=== PATIENT | female | born 1985 | race Caucasian/White ===

== ENCOUNTER 2017-11-24 17:11 | Emergency (ER) | payer OTHER, SELFPAY ==
[2017-11-24] VITALS (7 sets, daily range): BP systolic 107–134; BP diastolic 78–89; PULSE 98–122; RESP 14–30; TEMP 36.6; O2SAT 95–100; BMI 31.1
--- NOTE | 2017-11-24 17:25 | EKG12_ITS ---
Test Reason : CP Blood Pressure : / mmHG Vent. Rate : 117 BPM Atrial Rate : 117 BPM P-R Int : 156 ms QRS Dur : 082 ms QT Int : 304 ms P-R-T Axes : 039 080 050 degrees QTc Int : 424 ms Sinus tachycardia Otherwise normal ECG Confirmed by ALETHEA ARAYA, MASOUD ([id number]), food editor ALTHEA WILKINSON ([id number]) on 11/30/2017 9:18:16 AM Referred By: UVALDO/JARETH Confirmed By:MASOUD CLAIRE MD
[2017-11-24] MEDS: 0.9% Normal Saline 1,000 ML 1000 ML IV (17:50)
--- NOTE | 2017-11-24 17:58 | ED.VISSUMM ---
- ER Visit Summary Date of Service: 11/24/17 Chief Complaint: Vomiting History of Present Illness: The patient is a 32 F who states that on Monday she began to have vomiting states there was bright red blood with it. She states that she has been having chronic diarrhea. She reports fevers. She notes a chest pressure. She states that she feels like at times her heart is racing. She notes decreased urination. She reports that she was admitted to [facility] a year ago with an ileus and had sludge in the common bile duct. She denies a history of pancreatitis. She has had cholecystectomy hysterectomy hernia repair. The patient notes epigastric abdominal pain. She states that just prior to arrival she had another emesis had blood in it. Stools have not been black or tarry. No bright red blood in the stools. Physical Examination: 129/83 temperature 98 heart rate of 122 respirations are 19 even and unlabored pulse ox is 100 Gen: Well-nourished well-developed Head: Normocephalic atraumatic Eyes: Perrl EOMI ENT: TMs clear no rhinorrhea moist mucous membranes Neck: Supple no lymphadenopathy no JVD nontender CVS: Regular rate rhythm no murmurs normal S1-S2 Respiratory: No distress clear to auscultation bilaterally chest nontender Abdomen: Soft nontender nondistended normal bowel sounds no masses Back: Nontender Extremity: Nontender no edema Skin: Normal color no rash Neuro: alert orientated ?3 CN II-XII intact normal strength sensation reflexes gait cerebellar Test Results: EKG shows a sinus tachycardia at a rate of 117 CBC with white count 10.2 hemoglobin 14.8 platelets 216. Chemistry showed a creatinine 1.08 lipase 179. Troponin less than 0.015. CT the abdomen pelvis performed with oral and IV contrast did not show any acute etiology for the patient's pain. Emergency Department Course and Treatment: Patient received IV fluids morphine and Zofran and later a GI cocktail. With the patient most likely has some gastritis also component of anxiety given the circumstances of the past week and a half is totally understandable. I will write for the patient have Pepcid and Zofran she is to do a clear liquid diet for the next 24 hours and slowly progress. She is to follow-up with her doctor early next week. She may return if worsening or concerns. Impression: 1. Acute abdominal pain 2. Acute gastritis This note was generated with [employer] dictation software. It may contain incorrect words, spelling, and punctuation that were not noted in review of the chart prior to signing ED Disposition - Plan for ED Patient: Disposition: Home or Assisted Living Chief Complaint: Chest Pain Instructions: ED Gastritis Prescriptions: Ondansetron [Zofran Odt] 4 mg PO Q8H PRN PRN #10 tab PRN Reason: Nausea Famotidine [Pepcid] 20 mg PO BID #28 tab Referrals: Jose Torres [Primary Care Provider] - 3-5 Days
[2017-11-24 18:03] LABS: Absolute Lymphocyte Count 3.45 X10^3/ul (0.83-4.51); Absolute Neutrophil Count 6.1 X10^3/uL (2.0-7.7); Basophil# 0.04 X10^3/uL; Basophil% 0.4 % (0-1); Hematocrit 43.6 % (37-47); Hemoglobin 14.8 g/dl (12.0-15.0); Lymphocyte # 3.45 X10^3/ul (4.0); Mean Corp Hgb Conc 33.9 g/gl (32-36); Mean Corpuscular Hgb 32.2 pg (27.0-32.0); Mean Platelet Vol. 11.7 fl (6.2-12.0); Monocyte# 0.47 X10^3/uL; Monocyte% 4.6 % (0-10); Neutrophil # 6.08 X10^3/uL (2.7-7.7); Neutrophil % 59.9 % (47-70); Platelet Count 216 K/mm3 (150-450); RBC Distribution Width CV 11.8 % (11.6-14.6); RBC Distribution Width SD 40.3 fl (35.1-43.9); Red Blood Count 4.59 M/mm3 (4.2-5.4); White Blood Count 10.2 K/mm3 (4.4-11.0)
[2017-11-24 18:04] LABS: POSITIVE COUNT NO; POSITIVE DIFFERENTIAL NO; POSITIVE MORPHOLOGY NO
[2017-11-24 18:14] LABS: Bacteria 0 SEEN /hpf (None Seen); Color, Urine Yellow (Yellow); Glucose, Dipstick Normal (Normal); Ketone-Dipstick Negative (Negative); Leukocyte Esterase-Dipstick 25 /ul (Negative); Mucous, Urine 0 SEEN /hpf (<or=2+); Nitrite-Dipstick Negative (Negative); Occult Blood-Urine Negative /ul (Negative); Protein-Dipstick Negative (Negative); Red Blood Cells-Urine 0 SEEN /hpf (0-5); Urine Bilirubin Dipstick Negative (Negative); Urine Clarity Cloudy (Clear); Urine Urobilinogen Normal (Normal)
[2017-11-24 18:15] LABS: AST(SGOT) 20 U/L (15-37); Alanine Aminotransfer ALT/SGPT 42 U/L (13-56); Albumin, Serum 4.1 g/dL (3.2-5.0); Alkaline Phosphatase 61 U/L (45-117); Anion Gap 6 (5-15); BUN 17 mg/dL (7-18); BUN/Creat Ratio 15.7 RATIO (10-20); Calcium,Total 9.9 mg/dL (8.5-10.1); Chloride 103 mmol/L (98-107); Creatinine, Serum 1.08 mg/dL (0.55-1.02); EST Glomerular Filtration Rate 63 mL/min (>60); Est Glom Filt Rate - Afr Amer 76 mL/min (>60); Estimated Creatinine Clearance 54.21 ml/min; Globulin 4.3 g/dL (2.2-4.2); Glucose 118 mg/dL (74-106); Lipase 179 U/L (73-393); Potassium 3.9 mmol/L (3.5-5.1); Protein, Total 8.4 g/dL (6.4-8.2); Sodium Level 138 mmol/L (136-145)
[2017-11-24 18:24] LABS: Amorphous Sediment 3+; Squamous Epithelial Cells - UA 0-5 SEEN /hpf (5-10); White Blood Cells 0-5 SEEN /hpf (0-5)
--- NOTE | 2017-11-24 18:29 | CT_ITS ---
STUDY: CT ABDOMEN AND PELVIS WITH CONTRAST REASON FOR EXAM: Female, 32 years old. Bloody emesis. History of prior ileus, cholecystectomy and prior surgical history of ANNA BSO. RADIATION DOSAGE (If Supplied By Facility): CTDIvol = ( 13.67 ) mGy, DLP = ( 683.37 ) mGycm TECHNIQUE: Transaxial images were obtained from the dome of the diaphragm to the symphysis pubis with oral contrast. 100 ml of Isovue 300 contrast was administered. Sagittal and coronal images were reconstructed. Individualized dose optimization techniques were used for this CT. COMPARISON: Prior abdomen and pelvic CT exam of December 29, 2015 FINDINGS: The visualized lung bases are unremarkable. The visualized portions of the heart are within normal limits. Normal liver with a Pascale's lobe. There are surgical clips in the gallbladder fossa consistent with a prior cholecystectomy. Normal spleen. Normal pancreas. Normal bilateral adrenal glands. 1 mm nonobstructing stone in the lower pole of the right kidney and a 1 mm stone in the midpole of the right kidney without hydronephrosis or ureteral stones. Normal left kidney without hydronephrosis or stones. Normal visualized stomach. Normal small intestine. Normal colon. The appendix is visualized and appears normal. Normal abdominal aorta. Normal inferior vena cava. Normal retroperitoneum. Normal urinary bladder. There is absence of the uterus consistent with a prior hysterectomy. Negative for pelvic mass or free fluid in the pelvis. Normal abdominal wall. Normal osseous structures. CT/Abdomen/Pelvis WITH Contrast IMPRESSION: No acute bowel related abnormalities. Negative for evidence of obstruction, perforation or inflammatory changes. Negative for a bowel related mass density. Status post cholecystectomy. There are 1 mm and 1 mm nonobstructing right renal stones without hydronephrosis or ureteral stones. Normal left kidney. Status post hysterectomy with no pelvic mass or free fluid of the pelvis. Electronically Signed: Verónica Lewis MD at 21:23 EDT , Service support ,
[2017-11-24] MEDS: Morphine 2 MG/ML Syringe IV (18:55)
[2017-11-24] MEDS: Ondansetron 4 MG/2 ML Vial IV ×2 (18:55→21:13)
[2017-11-24] MEDS: 0.9% Normal Saline 1,000 ML 250 ML IV (21:13)
== END 2017-11-24 21:45 | disposition home or self-care (01) ==
PROVIDERS: Emergency Provider Emergency Medicine; Family Provider Internal Medicine; PCP Internal Medicine
DX: K29.00 Acute gastritis without bleeding (principal); R10.13 Epigastric pain; F98.8 Other specified behavioral and emotional disorders with onset usually occurring in childhood and adolescence; F41.9 Anxiety disorder, unspecified; Z90.49 Acquired absence of other specified parts of digestive tract; Z90.710 Acquired absence of both cervix and uterus; Z79.899 Other long term (current) drug therapy
CPT/HCPCS: 74177; 80053; 81001; 83690; 84484; 85025; 93005; 96361; 96374; 96375; 96376; 99285; J7030; Q9967; A4216; J2405

== ENCOUNTER → 2017-12-08 15:49 | Outpatient (CLI) | payer OTHER, SELFPAY ==
--- NOTE | 2017-12-08 16:45 | RAD_ITS ---
STUDY: X-RAY - ABDOMEN/PELVIS REASON FOR EXAM: Female, 32 years old. Hematemesis and abdominal pain and bloating TECHNIQUE: Two AP supine views of the abdomen and pelvis. COMPARISON: None. FINDINGS: Normal visualized lung bases. There is an abundance of fecal material throughout the colon. There is no demonstrated free abdominal air. Cholecystectomy clips The visualized liver, spleen and kidneys are grossly normal in size and morphology. Normal soft tissue structures. Normal visualized osseous structures. RAD/Abdomen Single View IMPRESSION: Fecal retention throughout the colon Electronically Signed: Basilio Cruz DO at 16:14 EDT Tel , Service support ,
[2017-12-08 16:59] LABS: Thyroid Stim Hormone (TSH) 1.71 uIU/mL (0.358-3.74)
== END ==
PROVIDERS: Family Provider Internal Medicine; PCP Internal Medicine
DX: K92.0 Hematemesis (principal); K59.09 Other constipation; K92.1 Melena
CPT/HCPCS: 36415; 74018; 84443

== ENCOUNTER 2017-12-19 04:35 | Emergency (ER) | payer OTHER, MEDICAID, SELFPAY ==
[2017-12-19 04:37] VITALS: BP 127/70; PULSE 110; RESP 22; TEMP 36.7; O2SAT 98; BMI 27.9
--- NOTE | 2017-12-19 04:52 | ED.VISSUMM ---
- ER Visit Summary Date of Service: 12/19/17 Chief Complaint: [] Right-sided flank pain nausea and vomiting History of Present Illness: The patient is a 32 F patient with a history of multiple kidney stones in the past complaining of acute onset right-sided flank pain that woke her up from sleep. It happened 4 hours ago. She has had 6 episodes of emesis. It is a sharp stabbing pain in this region. She has a history of kidney stones. She did not have a kidney stone on her a recent CT abdomen pelvis however. She has had them remotely. She stated she is always had to have lithotripsy to break them up Physical Examination: [] Vital signs reviewed General: Well-nourished well-developed Head: Normocephalic atraumatic Eyes: Pupils equal round and reactive to light extraocular movements intact ENT: TMs clear no hemotympanum no trauma Neck: Nontender full range of motion Cardiovascular: Regular rate rhythm no murmurs normal S1-S2 Respiratory: No distress clear to auscultation bilaterally chest nontender Abdomen: Soft nontender nondistended normal bowel sounds no masses Back: Nontender no CVA tenderness Extremities: Nontender active range of motion ?4 extremities no trauma Skin: Normal color no trauma Neuro alert oriented cranial nerves II through XII intact normal strength sensation reflexes Test Results: [] Emergency Department Course and Treatment: [] Patient given IV fluids, morphine Zofran and Toradol. At this time I feel the patient has recurrent kidney stones. I do not feel she needs lab work or imaging at this time. Symptom control will be obtained the patient will be discharged with nausea and pain medicine to follow-up with urology. I do not feel she needs further imaging and she has had this multiple times in the past and will not change emergency department management. Treatment Plan: [] Disposition: [] Impression: [] Acute right-sided recurrent flank pain suspected kidney stone This note was generated with [employer] dictation software. It may contain incorrect words, spelling, and punctuation that were not noted in review of the chart prior to signing ED Disposition - Plan for ED Patient: Chief Complaint: Flank Pain Referrals: Jose Torres Jr., MD [Primary Care Provider] -
[2017-12-19] MEDS: Ketorolac 30 MG/ML Syringe IV (05:05)
[2017-12-19] MEDS: Morphine 4 MG/ML Syringe IV ×2 (05:05→05:35)
[2017-12-19] MEDS: Ondansetron 4 MG/2 ML Vial IV (05:05)
[2017-12-19] MEDS: 0.9% Normal Saline 1,000 ML 1000 ML IV (05:05)
[2017-12-19] MEDS: proMETHazine 25 MG/ML Syringe 12.5 MG IV (05:35)
--- NOTE | 2017-12-19 06:20 | DCINST.ED_ITS ---
ED Disposition - Plan for ED Patient: Disposition: Home or Assisted Living Chief Complaint: Flank Pain Instructions: ED Stone Renal W Colic Prescriptions: Oxycodone HCl/Acetaminophen [Percocet 5/325] 1 - 2 tab PO Q6H PRN PRN 3 Days # 10 tab PRN Reason: Pain proMETHazine tablet [Phenergan] 25 mg PO Q6H PRN PRN #10 tab PRN Reason: Nausea Ondansetron [Zofran Odt] 4 mg PO Q8H PRN PRN #10 tab PRN Reason: Nausea Referrals: Jose Torres Jr., MD [Primary Care Provider] - Manny Velasquez MD [STAFF PHYSICIAN] -
[2017-12-19] MEDS: HYDROmorphone 0.5 MG/0.5 ML SYRINGE IV (06:53)
[2017-12-19 07:26] VITALS: BP 108/74; PULSE 62; RESP 15; O2SAT 97
== END 2017-12-19 07:28 | disposition home or self-care (01) ==
PROVIDERS: Emergency Provider Emergency Medicine; Family Provider Internal Medicine; PCP Internal Medicine
DX: N20.0 Calculus of kidney (principal); Z87.442 Personal history of urinary calculi
CPT/HCPCS: 96361; 96374; 96375; 96376; 99285; J7030; A4216; J2405

== ENCOUNTER 2018-01-17 04:08 | Emergency (ER) | payer OTHER, MEDICAID, SELFPAY ==
[2018-01-17 04:08] VITALS: BP 124/80; PULSE 88; RESP 18; TEMP 36.8; O2SAT 97; BMI 30.7
--- NOTE | 2018-01-17 04:23 | CT_ITS ---
STUDY: CT ABDOMEN AND PELVIS WITHOUT CONTRAST REASON FOR EXAM: Female, 32 years old. Right flank pain RADIATION DOSAGE (If Supplied By Facility): CTDIvol = ( 7.69 ) mGy, DLP = ( 384.17 ) mGycm TECHNIQUE: Transaxial images were obtained from the dome of the diaphragm to the symphysis pubis without oral contrast, and without intravenous contrast. Sagittal and coronal images were reconstructed. Individualized dose optimization techniques were used for this CT. COMPARISON: None. FINDINGS: Evaluation limited by lack of IV and oral contrast material. The visualized lung bases are unremarkable. The visualized portions of the heart are within normal limits. Normal liver. There are surgical clips in the gallbladder fossa consistent with a prior cholecystectomy. Normal spleen. Normal pancreas. Normal bilateral adrenal glands. There are multiple 1 to 3 mm nonobstructing stones within the right kidney. Normal left kidney. Normal visualized stomach. Normal small intestine. There are multiple colonic diverticula consistent with diverticulosis. The appendix is visualized and appears normal. Normal unenhanced abdominal aorta. Cannot evaluate for dissection due to lack of IV contrast. Normal unenhanced inferior vena cava. Nonspecific subcentimeter short axis mesenteric and retroperitoneal lymph nodes. Normal urinary bladder. Minimal bilateral hydroureter. Normal abdominal wall. There are diffuse degenerative changes of the visualized lumbar spine. CT/Abdomen/Pelvis without Cont IMPRESSION: Nonobstructing right nephrolithiasis. There is bilateral minimal hydroureter present. No ureteral stones are seen. Correlate with urinalysis for possible ascending infectious process. No CT evidence for diverticulitis or appendicitis. Status post cholecystectomy. Other findings as discussed above. Electronically Signed: Eugenio Groves, at 5:49 EDT Tel , Service support ,
--- NOTE | 2018-01-17 04:24 | ED.VISSUMM ---
- ER Visit Summary Date of Service: 01/17/18 Chief Complaint: Right flank pain History of Present Illness: The patient is a 32 F presenting with right flank pain. She states this woke her from sleep around 3 AM. She has history of multiple kidney stones in the past. States this feels similar. She has nausea and vomiting. She tried Zofran and Flexeril at home with no relief. She has seen Dr. Mcmullen in the past but is unable to go back to his office due to an unpaid bill. Denies fever. Denies other complaints. History of hysterectomy, cholecystectomy. Physical Examination: Vitals are stable. Patient is afebrile. Alert no acute distress. HEENT exam is unremarkable. Neck is supple. Lungs are clear and equal bilaterally. Heart is regular rate and rhythm. Abdomen is soft nontender nondistended. Back: Right CVA tenderness Extremities are unremarkable. Skin is warm and dry. No focal neurologic deficit. Remainder of exam is unremarkable. Emergency Department Course and Treatment: Patient is given morphine, Zofran IV. Urinalysis unremarkable. CT flank shows nonobstructing right nephrolithiasis, bilateral minimal hydroureter. No ureteral stones are seen. Patient continues to have pain but her symptoms are improved. She is given an additional dose of morphine. She is advised to follow-up with her primary care physician. She is advised to return to the ED for any worsening complaints. Disposition: Discharge home Impression: Right flank pain This note was generated with [employer] dictation software. It may contain incorrect words, spelling, and punctuation that were not noted in review of the chart prior to signing ED Disposition - Plan for ED Patient: Chief Complaint: Flank Pain Instructions: ED Flank Pain Uncertain Cause Referrals: Jose Torres Jr., MD [Primary Care Provider] -
[2018-01-17 04:41] LABS: Mucous, Urine 0 SEEN /hpf (<or=2+); Red Blood Cells-Urine 0 SEEN /hpf (0-5)
[2018-01-17 04:42] LABS: Color, Urine Yellow (Yellow); Glucose, Dipstick Normal (Normal); Ketone-Dipstick Negative (Negative); Leukocyte Esterase-Dipstick 25 /ul (Negative); Nitrite-Dipstick Negative (Negative); Occult Blood-Urine Negative /ul (Negative); Protein-Dipstick Negative (Negative); Specific Gravity, Urine 1.025 (1.002-1.030); Urine Bilirubin Dipstick Negative (Negative); Urine Clarity Clear (Clear); Urine Urobilinogen Normal (Normal)
[2018-01-17 04:47] LABS: Bacteria RARE /hpf (None Seen); Squamous Epithelial Cells - UA 0-5 SEEN /hpf (5-10); White Blood Cells 0-5 SEEN /hpf (0-5)
[2018-01-17] MEDS: proMETHazine 25 MG/ML Syringe 6.25 MG IV (04:52)
[2018-01-17] MEDS: Morphine 4 MG/ML Syringe IV ×2 (04:52→06:50)
--- NOTE | 2018-01-17 06:37 | ED.DEP ---
ED Disposition - Plan for ED Patient: Chief Complaint: Flank Pain Instructions: ED Flank Pain Uncertain Cause Referrals: Jose Torres Jr., MD [Primary Care Provider] -
[2018-01-17 06:51] VITALS: BP 108/73; PULSE 59; RESP 14; O2SAT 98
== END 2018-01-17 06:54 | disposition home or self-care (01) ==
PROVIDERS: Emergency Provider Emergency Medicine; Family Provider Internal Medicine; PCP Internal Medicine
DX: R10.9 Unspecified abdominal pain (principal); R11.2 Nausea with vomiting, unspecified; F90.9 Attention-deficit hyperactivity disorder, unspecified type; F41.9 Anxiety disorder, unspecified; Z87.442 Personal history of urinary calculi; Z90.49 Acquired absence of other specified parts of digestive tract; Z90.710 Acquired absence of both cervix and uterus
CPT/HCPCS: 74176; 81001; 96374; 96375; 96376; 99283; J7050; A4216

== ENCOUNTER 2018-06-10 19:56 | Emergency (ER) | payer OTHER, MEDICAID, SELFPAY ==
[2018-06-10 19:57] VITALS: BP 164/94; PULSE 118; RESP 16; TEMP 36.7; O2SAT 99; BMI 33.4
[2018-06-10 21:56] VITALS: PULSE 108; RESP 18; TEMP 36.7; O2SAT 100
--- NOTE | 2018-06-10 22:18 | ED.VISSUMM ---
- ER Visit Summary Date of Service: 06/10/18 Chief Complaint: Cough History of Present Illness: The patient is a 33 F with a cough that has been getting worse over the past 12 days. The patient has had a dry cough with fever. The cough is getting worse and it is barky. It is causing her chest to hurt in her body hurts. Her throat is sore and she has a hoarse voice. She has tried [id number] remedies, and nothing is helping. Physical Examination: Afebrile and vital signs unremarkable except for heart rate of 108. She has a hoarse barky cough. HEENT exam unremarkable. Airway patent. Voice is hoarse. No stridor. No drooling. Sitting, breathing, speaking without difficulty. No lymphadenopathy. Neck is nontender. Good range of motion of her neck. No abscess is noted. Lungs are clear. Heart is regular. Skin appears unremarkable. Test Results: None indicated Emergency Department Course and Treatment: Patient likely has a viral syndrome, however this is been going on for 12 days. She exhibits a very hoarse and barky cough. She is otherwise handling her secretions and her exam is otherwise fairly unremarkable. She was treated with Decadron and a course of doxycycline. She has tolerated this before. Treatment Plan: As above Disposition: Discharge Impression: 1. Upper respiratory infection This note was generated with [employer] dictation software. It may contain incorrect words, spelling, and punctuation that were not noted in review of the chart prior to signing ED Disposition - Plan for ED Patient: Chief Complaint: Cold Sx Referrals: Jose Torres Jr., MD [Primary Care Provider] -
--- NOTE | 2018-06-10 22:23 | ED.DCSUM_ITS ---
- ER Visit Summary Date of Service: 06/10/18 Chief Complaint: Cough History of Present Illness: The patient is a 33 F with a cough that has been getting worse over the past 12 days. The patient has had a dry cough with fever. The cough is getting worse and it is barky. It is causing her chest to hurt in her body hurts. Her throat is sore and she has a hoarse voice. She has tried [id number]-wwb-[id number] remedies, and nothing is helping. Physical Examination: Afebrile and vital signs unremarkable except for heart rate of 108. She has a hoarse barky cough. HEENT exam unremarkable. Airway patent. Voice is hoarse. No stridor. No drooling. Sitting, breathing, speaking without difficulty. No lymphadenopathy. Neck is nontender. Good range of motion of her neck. No abscess is noted. Lungs are clear. Heart is regular. Skin appears unremarkable. Test Results: None indicated Emergency Department Course and Treatment: Patient likely has a viral syndrome, however this is been going on for 12 days. She exhibits a very hoarse and barky cough. She is otherwise handling her secretions and her exam is otherwise fairly unremarkable. She was treated with Decadron and a course of doxycycline. She has tolerated this before. Treatment Plan: As above Disposition: Discharge Impression: 1. Upper respiratory infection This note was generated with [employer] dictation software. It may contain incorrect words, spelling, and punctuation that were not noted in review of the chart prior to signing ED Disposition - Plan for ED Patient: Chief Complaint: Cold Sx Referrals: Jose Torres Jr., MD [Primary Care Provider] -
--- NOTE | 2018-06-10 22:23 | ED.DEP ---
ED Disposition - Plan for ED Patient: Chief Complaint: Cold Sx Instructions: ED Upper Resp Infec Abx Tx Prescriptions: Doxycycline 100 mg PO DAILY 10 Days #20 cap Referrals: Jose Torres Jr., MD [Primary Care Provider] -
[2018-06-10] MEDS: Doxycycline 100 MG CAPSULE PO (22:36)
[2018-06-10 22:40] VITALS: BP 133/76; PULSE 99; RESP 18; O2SAT 97
== END 2018-06-10 22:41 | disposition home or self-care (01) ==
PROVIDERS: Emergency Provider Emergency Medicine; Family Provider Internal Medicine; PCP Internal Medicine
DX: J06.9 Acute upper respiratory infection, unspecified (principal)
CPT/HCPCS: 99283

== ENCOUNTER 2018-06-21 18:30 | Emergency (ER) | payer OTHER, MEDICAID, SELFPAY ==
[2018-06-21 18:31] VITALS: BP 114/70; PULSE 106; RESP 16; TEMP 36.7; O2SAT 100
--- NOTE | 2018-06-21 19:05 | RAD_ITS ---
STUDY: X-RAY - RIGHT TIBIA AND FIBULA REASON FOR EXAM: Female, 33 years old. Pain in the distal lower leg after falling. TECHNIQUE: 2 view(s) of the tibia and fibula were obtained. COMPARISON: None. FINDINGS: Normal visualized tibia. Normal visualized fibula. There is no demonstrated acute fracture. The soft tissue structures are unremarkable. RAD/Tibia & Fibula 2 Views IMPRESSION: Normal x-ray examination of the tibia and fibula. Electronically Signed: Verónica Lewis MD at 19:46 EST , Service support ,
[2018-06-21] MEDS: HYDROcodone Bitartrate/Apap 5/325 Tablet PO (19:11)
--- NOTE | 2018-06-21 19:15 | RAD_ITS ---
STUDY: X-RAY - RIGHT WRIST REASON FOR EXAM: Female, 33 years old. Injury. Fall. TECHNIQUE: 3 view(s) of the wrist were obtained. COMPARISON: None. FINDINGS: Normal visualized distal radius and ulna. Normal radiocarpal articulation. Normal distal radioulnar articulation. Normal carpal bones. Normal carpal articulations. Normal carpometacarpal articulation of the thumb. Normal second through fifth carpometacarpal articulations. Normal visualized metacarpal bones. The soft tissue structures are unremarkable. RAD/Wrist min 3 Views IMPRESSION: No acute osseous injury. Electronically Signed: Kaila Tobias MD at 19:57 EST Tel , Service support ,
--- NOTE | 2018-06-21 20:29 | ED.DCSUM_ITS ---
- ER Visit Summary Date of Service: 06/21/18 Chief Complaint: Fall History of Present Illness: The patient is a 33 F who tripped on a rug [employer] injuring her right wrist, right ankle, and right side of her back. Patient does have a history of chronic right back pain. She did strike the back of her head but did not lose consciousness. She does not have headache or vision change. She reports significant pain to the right wrist, along with pain and tingling to the right calf. Physical Examination: Vital signs unremarkable. Patient sitting upright in bed. She is in no acute distress. Head neck examination reveals no external sign of trauma. No C-spine tenderness. Heart is regular rate and rhythm. Lung sounds are clear. Abdomen is soft nontender. Back examination was mild tenderness in the right low lumbar paraspinal muscles. No abrasions or ecchymosis noted. Upper extremity examination reveals moderate tenderness around the right wrist without deformity. She is moving all fingers. She has normal cap refill and sensation. There is no tenderness at the proximal forearm, elbow, or humerus. Lower extremity examination reveals mild tenderness along the right tib-fib without ecchymosis, edema, or abrasion. There is no focal edema at the ankle. She has strong distal pulses and normal cap refill. Test Results: Right tib-fib x-rays are normal. Right wrist x-rays reveal no osseous injury. Emergency Department Course and Treatment: Patient does have reported allergy to NSAIDs. She is given [place] here. Test results are discussed with her. She will be given an Garry wrap on her right wrist in a very short course of [place] for pain. Treatment Plan: [] Disposition: Discharge Impression: 1. Mechanical fall 2. Right wrist sprain This note was generated with [employer] dictation software. It may contain incorrect words, spelling, and punctuation that were not noted in review of the chart prior to signing ED Disposition - Plan for ED Patient: Chief Complaint: Fall Referrals: Jose Torres Jr., MD [Primary Care Provider] -
--- NOTE | 2018-06-21 20:32 | DCINST.ED_ITS ---
ED Disposition - Plan for ED Patient: Disposition: Home or Assisted Living Chief Complaint: Fall Instructions: ED Mechanical Fall, ED Sprain Wrist Prescriptions: Hydrocodone Bitart/Apap 5-325 [[place] 5MG-325MG] 1 tablet PO Q6H PRN PRN 3 Days #10 tablet PRN Reason: Pain Referrals: Jose Torres Jr., MD [Primary Care Provider] - 1 Week if not improving
[2018-06-21 20:42] VITALS: BP 106/78; PULSE 90; RESP 16; O2SAT 96
== END 2018-06-21 20:43 | disposition home or self-care (01) ==
PROVIDERS: Emergency Provider Emergency Medicine; Family Provider Internal Medicine; PCP Internal Medicine
DX: S63.501A Unspecified sprain of right wrist, initial encounter (principal); W18.09XA Striking against other object with subsequent fall, initial encounter; Y93.01 Activity, walking, marching and hiking; Y92.89 Other specified places as the place of occurrence of the external cause; Y99.8 Other external cause status; F90.9 Attention-deficit hyperactivity disorder, unspecified type; F41.9 Anxiety disorder, unspecified
CPT/HCPCS: 73110; 73590; 99283

== ENCOUNTER 2019-01-23 19:42 | Emergency (ER) | payer OTHER, SELFPAY ==
[2019-01-23 19:43] VITALS: BP 139/72; PULSE 133; RESP 20; TEMP 36.4; O2SAT 100; BMI 33.1
[2019-01-23 20:02] LABS: Absolute Lymphocyte Count 0.69 X10^3/uL (0.83-4.51); Absolute Neutrophil Count 11.5 X10^3/uL (2.0-7.7); Basophil# 0.03 X10^3/uL; Basophil% 0.2 % (0-1); Eosinophil# 0.02 X10^3/uL; Eosinophils% 0.2 % (0-5); Hemoglobin 15.9 g/dL (12.0-15.0); Lymphocyte # 0.69 X10^3/ul (4.0); Lymphocyte % 5.4 % (19-41); Mean Corp Hgb Conc 33.8 g/dL (32-36); Mean Corpuscular Hgb 31.6 pg (27.0-32.0); Mean Corpuscular Volume 93.4 fL (81-99); Mean Platelet Vol. 10.2 fl (6.2-12.0); Monocyte# 0.57 X10^3/uL; Monocyte% 4.4 % (0-10); NRBC Flagged by Analyzer 0 % (0-5); Neutrophil # 11.45 X10^3/uL (2.7-7.7); Neutrophil % 89.4 % (47-70); Platelet Count 249 K/mm3 (150-450); RBC Distribution Width CV 12.2 % (11.6-14.6); RBC Distribution Width SD 42.2 fl (35.1-43.9); Red Blood Count 5.03 M/mm3 (4.2-5.4); White Blood Count 12.8 K/mm3 (4.4-11.0)
[2019-01-23 20:12] LABS: Anion Gap 4 (5-15); BUN 16 mg/dL (7-18); BUN/Creat Ratio 15.7 RATIO (10-20); Calcium,Total 9.4 mg/dL (8.5-10.1); Chloride 106 mmol/L (98-107); Creatinine, Serum 1.02 mg/dL (0.55-1.02); EST Glomerular Filtration Rate 66 mL/min (>60); Est Glom Filt Rate - Afr Amer 80 mL/min (>60); Estimated Creatinine Clearance 56.87 ml/min; Glucose 155 mg/dL (74-106); Potassium 4.1 mmol/L (3.5-5.1); Sodium Level 137 mmol/L (136-145)
[2019-01-23 21:15] LABS: Red Blood Cells-Urine 0 SEEN /hpf (0-5)
[2019-01-23 21:18] LABS: Color, Urine Yellow (Yellow); Glucose, Dipstick Normal (Normal); Ketone-Dipstick Negative (Negative); Leukocyte Esterase-Dipstick Negative /ul (Negative); Nitrite-Dipstick Negative (Negative); Occult Blood-Urine Negative /ul (Negative); Protein-Dipstick Negative (Negative); Specific Gravity, Urine 1.015 (1.002-1.030); Urine Bilirubin Dipstick Negative (Negative); Urine Clarity Clear (Clear); Urine Urobilinogen Normal (Normal)
[2019-01-23 21:25] LABS: Bacteria RARE /hpf (None Seen); Mucous, Urine RARE /hpf (<or=2+); Squamous Epithelial Cells - UA 5-10 SEEN /hpf (5-10); White Blood Cells 0-5 SEEN /hpf (0-5)
--- NOTE | 2019-01-23 21:46 | CT_ITS ---
STUDY: CT ABDOMEN AND PELVIS WITH CONTRAST REASON FOR EXAM: Female, 33 years old. Right lower quadrant pain. Renal stones. RADIATION DOSAGE (If Supplied By Facility): CTDIvol = ( 13.47 ) mGy, DLP = ( 874.06 ) mGycm TECHNIQUE: Transaxial images were obtained from the dome of the diaphragm to the symphysis pubis with oral contrast. 100ML IV/Oral Isovue 300 was administered. Sagittal and coronal images were reconstructed. Individualized dose optimization techniques were used for this CT. COMPARISON: 01/17/2018 FINDINGS: The visualized lung bases are unremarkable. The visualized portions of the heart are within normal limits. There is decreased attenuation of the liver consistent with steatosis. There is hepatomegaly. There are surgical clips in the gallbladder fossa consistent with a prior cholecystectomy. Normal spleen. Normal pancreas. Normal bilateral adrenal glands. Right kidney has stable small nonobstructing stones in the mid and lower regions approximately 3 mm in greatest dimension.. Normal left kidney. No masses. No hydronephrosis on either side. Symmetric contrast enhancement. Normal visualized stomach. Normal small intestine. Normal colon. The appendix is visualized and appears normal. Normal abdominal aorta. Normal inferior vena cava. Normal retroperitoneum. Normal urinary bladder. There is absence of the uterus consistent with a prior hysterectomy. Normal abdominal wall. Normal osseous structures. CT/Abdomen/Pelvis WITH Contrast IMPRESSION: No acute abnormality. Stable nonobstructing right renal stones. Fatty liver with hepatomegaly. Electronically Signed: Wilberto Gray MD at 23:46 EDT , Service support ,
[2019-01-23] MEDS: Morphine 4 MG/ML Syringe IV ×2 (21:54→23:46)
[2019-01-23] MEDS: Ondansetron 4 MG/2 ML Vial IV (21:54)
--- NOTE | 2019-01-23 23:13 | ED.DCSUM_ITS ---
- ER Visit Summary Date of Service: 01/23/19 Chief Complaint: Abdominal pain History of Present Illness: The patient is a 33 F presenting with abdominal pain. Patient states this started today. She has had nausea and vomiting. She denies diarrhea. She complains of lower abdominal pain. She denies sick contacts. Denies recent travel, antibiotics, or bad food exposure. She states she tried Zofran at home with no relief. History of previous cholecystectomy and hysterectomy. Physical Examination: Vitals are stable. Patient is afebrile. Alert no acute distress. HEENT exam is unremarkable. Neck is supple. Lungs are clear and equal bilaterally. Heart is regular and tachycardic Abdomen is soft right lower quadrant tenderness with no rebound or guarding Extremities are unremarkable. Skin is warm and dry. No focal neurologic deficit. Remainder of exam is unremarkable. Emergency Department Course and Treatment: Patient was given IV fluids, morphine, Zofran. CBC shows a white count 12.8, chemistries show glucose 155. Urinalysis unremarkable. CT abdomen pelvis shows no acute abnormality. Stable nonobstructing right renal stones. Fatty liver with hepatomegaly. On reevaluation, patient is feeling improved. She is able to tolerate p.o. She is advised to follow up with her primary care physician. She is given a prescription for Phenergan. Advised to return to the ED for worsening complaints. Disposition: Discharge home Impression: Abdominal pain This note was generated with [employer] dictation software. It may contain incorrect words, spelling, and punctuation that were not noted in review of the chart prior to signing ED Disposition - Plan for ED Patient: Referrals: Gwen Verdin MD [Primary Care Provider] -
[2019-01-23] MEDS: 0.9% Normal Saline 1,000 ML 999 ML IV (23:38)
[2019-01-23] MEDS: proMETHazine 25 MG/ML Syringe 6.25 MG IV (23:38)
[2019-01-23 23:47] VITALS: BP 116/74; PULSE 114; RESP 16; TEMP 37.2; O2SAT 100
--- NOTE | 2019-01-24 00:01 | ED.DEP ---
ED Disposition - Plan for ED Patient: Instructions: VOMITING (7y-Adult) Prescriptions: proMETHazine tablet [Phenergan] 25 mg PO Q6H PRN PRN #10 tablet PRN Reason: Nausea Referrals: Gwen Verdin MD [Primary Care Provider] -
[2019-01-24 00:26] VITALS: BP 120/82; PULSE 118; RESP 16; O2SAT 100
== END 2019-01-24 00:27 | disposition home or self-care (01) ==
LOC: ED 22:23
PROVIDERS: Emergency Provider Emergency Medicine; Family Provider Internal Medicine; PCP Internal Medicine
DX: R10.31 Right lower quadrant pain (principal); R11.2 Nausea with vomiting, unspecified; N20.0 Calculus of kidney; K76.0 Fatty (change of) liver, not elsewhere classified; Z90.49 Acquired absence of other specified parts of digestive tract; Z90.710 Acquired absence of both cervix and uterus; F90.9 Attention-deficit hyperactivity disorder, unspecified type
CPT/HCPCS: 74177; 80048; 81001; 85025; 96361; 96374; 96375; 96376; 99283; J7030; Q9967; A4216; J2405

== ENCOUNTER 2019-06-11 19:34 | Emergency (ER) | payer OTHER, SELFPAY ==
[2019-06-11 19:36] VITALS: BP 126/72; PULSE 90; RESP 18; TEMP 36.8; O2SAT 97; BMI 28.9
--- NOTE | 2019-06-11 20:00 | RAD_ITS ---
STUDY: X-RAY - LEFT KNEE REASON FOR EXAM: Female, 34 years old. Fall onto ice. Pain. Limited movement. TECHNIQUE: 3 view(s) of the knee. COMPARISON: None. FINDINGS: There is evidence of ACL repair. The distal femur is otherwise unremarkable. Otherwise normal visualized proximal tibia and fibula. Normal proximal tibiofibular articulation. There is no acute fracture or dislocation. Normal medial femorotibial compartment. Normal lateral femorotibial compartment. Normal patellofemoral articulation. There is no demonstrated joint effusion. The soft tissue structures are unremarkable. RAD/Knee 3 Views IMPRESSION: 1. No acute fracture or dislocation. 2. Evidence of remote ACL repair. Electronically Signed: Jhony Ahumada DO at 20:50 EST Tel [phone], Service support ,
--- NOTE | 2019-06-11 20:07 | ED.VIS.LOWEX ---
History of Present Illness Chief Complaint: Lower Extremity Injury Narrative: Patient presenting for evaluation secondary to a left knee injury. Patient has a past history of a quadriceps tendon rupture with surgery being performed around 5 years ago or so. Patient was walking into a business today and slipped on some ice. She reports that when she tried to catch herself from falling she felt a significant pop in her left knee. Pain that she is experiencing now is similar to the pain that she had when she suffered the quadriceps tendon rupture. She is able to bear weight but with some difficulty. Pain is moderate worse with movement and palpation. No numbness or weakness. Review of systems otherwise negative. Past Medical History - Allergies and Home Meds Allergies/Adverse Reactions: Allergies Penicillins Allergy (Verified 06/11/19 19:38) Hives azithromycin [From Zithromax] Adverse Reaction (Verified 06/11/19 19:38) Vomiting latex Adverse Reaction (Verified 06/11/19 19:38) Rash minocycline [Minocycline] Adverse Reaction (Verified 06/11/19 19:38) Other NSAIDS (Non-Steroidal Anti-Inflamma Adverse Reaction (Verified 06/11/19 19:38) Other tramadol Adverse Reaction (Verified 06/11/19 19:38) Shortness of breath Primary Care Physician: Gwen Verdin MD [Primary Care Provider] - Past Medical History: - - Past quadriceps tendon rupture Smoking Status: Never smoker Review of Systems General: Denies: Fever Gastrointestinal: Denies: Nausea, Vomiting Musculoskeletal: Reports: Extremity Pain Skin: Denies: Abrasions Neurological: Denies: Headache, Weakness, Parasthesia Physical Exam Vital Signs/Narrative: Vital Signs Temp Pulse Resp BP Pulse Ox 06/11/19 19:36 98.2 F 90 18 126/72 H 97 - Extremity Exam Left Knee: - - Examination the patient's left knee shows some overlying ecchymosis. There does feel as if there is a palpable defect superior to the patient's patella. She has difficulty with extending the knee. Limited range of motion secondary to pain. Patient was unable to tolerate ligamentous testing of the knee. General: Well nourished, Well developed Head: Normocephalic, Atraumatic ENT: No Trauma Neck: Nontender, Full ROM Cardiovascular: Regular rate, Regular rhythm Respiratory: No distress Abdomen: Soft Back: Nontender Skin: Normal color, No rash Neurological: Alert, Oriented x3 Psychological: Normal affect Diagnostic/Tx/Re-eval - Medical Decision Making Patient presented secondary to a knee injury. Physical exam is concerning for the possibility of a disruption of the patient's extensor mechanism. X-ray was obtained which showed no acute pathology. I did a bedside ultrasound and it does show some fluid around the patient's quadriceps tendon, but was indeterminate as to whether there was a complete rupture. Given the fact that the patient is having difficulty with extending her knee I will treat this as if it is a likely quadriceps tendon rupture. Patient will be given a referral to orthopedics. She will be placed in a knee immobilizer and crutches. She will be sent home with a course of Percocet for pain control. ED Disposition - Plan for ED Patient: Disposition: Home or Assisted Living Diagnosis: Quadriceps tendon rupture Instructions: Knee Immobilizer Prescriptions: Oxycodone HCl/Acetaminophen [Percocet 5/325] 1 tab PO Q6H PRN PRN 5 Days #20 tab PRN Reason: Pain Prescription Printed Referrals: Avel Cornejo DO [STAFF PHYSICIAN] - As soon as possible
[2019-06-11] MEDS: oxyCODONE 5 MG Tablet 10 MG PO (20:19)
[2019-06-11 21:34] VITALS: BP 122/70; PULSE 80; RESP 16; O2SAT 96
== END 2019-06-11 21:37 | disposition home or self-care (01) ==
PROVIDERS: Emergency Provider Emergency Medicine; Family Provider Internal Medicine; PCP Internal Medicine
DX: S76.112A Strain of left quadriceps muscle, fascia and tendon, initial encounter (principal); W00.2XXA Other fall from one level to another due to ice and snow, initial encounter; Y93.01 Activity, walking, marching and hiking; Y92.89 Other specified places as the place of occurrence of the external cause
CPT/HCPCS: 73562; 99284

== ENCOUNTER 2020-05-04 23:11 | Emergency (ER) | payer OTHER, MEDICAID, SELFPAY ==
[2020-05-04 23:12] VITALS: BP 141/81; PULSE 121; RESP 18; TEMP 36.9; O2SAT 100; BMI 30.8
--- NOTE | 2020-05-04 23:23 | ED.VIS.GEN ---
History of Present Illness Chief Complaint: Flank Pain Informant: Patient Narrative: Presents with acute left-sided flank pain that started an hour ago at home at rest. Sharp stabbing pain in the left flank. History of similar pain per patient. She has history of recurrent kidney stones. She stated she does not have a urologist locally. She has not had a kidney stone for over a year per patient. She stated they usually have to undergo lithotripsy to remove them. Denies any blood in her urine or urinary symptoms. She felt fine beforehand. When asked if she has a cough she denied this. Denies any coronavirus symptoms. Denies any anterior abdominal pain. Is left-sided lower back flank. Is not movement related. Current severity is moderate. She took Tylenol at home. Past Medical History - Allergies and Home Meds Allergies/Adverse Reactions: Allergies Penicillins Allergy (Verified 05/04/20 23:12) Hives azithromycin [From Zithromax] Adverse Reaction (Verified 05/04/20 23:12) Vomiting latex Adverse Reaction (Verified 05/04/20 23:12) Rash minocycline [Minocycline] Adverse Reaction (Verified 05/04/20 23:12) Other NSAIDS (Non-Steroidal Anti-Inflamma Adverse Reaction (Verified 05/04/20 23:12) Other tramadol Adverse Reaction (Verified 05/04/20 23:12) Shortness of breath Primary Care Physician: Gwen Verdin MD [Primary Care Provider] - Prior records reviewed: Yes Past Medical History: - Surgical History: - - Reviewed, lithotripsy Smoking Status: Never smoker Alcohol: None Drugs: None Review of Systems General: Denies: Chills, Fever, Sweats Eyes: Denies: Visual changes - bilaterally, Diplopia ENT: Denies: Rhinorrhea, Sore throat Cardiovascular: Denies: Chest pain, Palpitations Respiratory: Denies: Dyspnea, Cough, Dyspnea on exertion Gastrointestinal: Reports: Nausea. Denies: Abdominal pain, Vomiting, Diarrhea, Melena, Hematochezia Genitourinary: Denies: Dysuria, Hematuria, Frequency Musculoskeletal: Reports: Back pain. Denies: Extremity Pain Skin: Denies: Rash, Wounds Neurological: Denies: Headache, Weakness, Numbness Physical Exam Vital Signs/Narrative: Vital Signs Temp Pulse Resp BP Pulse Ox 05/04/20 23:12 98.5 F 121 H 18 141/81 H 100 General: Well nourished, Well developed, No Acute Distress Head: Normocephalic, Atraumatic Eyes: Perrl, EOMI ENT: Moist mucous membranes, No rhinorrhea Neck: Supple, Nontender Cardiovascular: Regular rate, Regular rhythm, No murmurs Respiratory: No distress, CTA bilaterally, Chest nontender Abdomen: Soft, Nontender, Nondistended, Normal bowel sounds Back: Nontender, Normal Inspection Extremities: Nontender, No edema Skin: Normal color, No rash Neurological: Alert, Oriented x3, Cranial nerves II-XII grossly intact, Normal Strength, Normal Sensation Psychological: Normal affect, Normal Mood Diagnostic/Tx/Re-eval - Medical Decision Making Given IV fluids morphine and Zofran. Allergic to NSAIDs therefore Toradol withheld. Lab work obtained. Lab work shows nothing acute including CBC and BMP. Urinalysis shows nothing acute. No red blood cells seen. Patient given second dose of treatment stated she cannot take Toradol therefore was given this later. She had good relief of symptoms. Will be given a short course Zofran for home. She has Percocet for chronic pain. I suspect she has a recurrent kidney stone. Have a low suspicion for AAA. She did have a mild amount of blood and some scant dry heaves fluid. I do not suspect that she has ruptured AAA or peptic ulcer disease. I suspect she has very mild Janice-Ryan blood from retching. She did get this under control with Zofran. I do not feel she needs imaging. I discussed this with the patient. She has had CAT scans in the past with known kidney stones. I will hold off given the radiation exposure. Patient is in agreement to this. ED Disposition - Plan for ED Patient: Disposition: Home or Assisted Living Diagnosis: Left flank pain Instructions: ED Renal Stone w Colic Prescriptions: Oxycodone HCl/Acetaminophen [Percocet 5/325] 1 - 2 tablet PO Q6H PRN PRN 3 Days #12 tablet PRN Reason: Pain Transmission Status: Pending to [id number] Ondansetron [Zofran Odt] 8 mg PO Q8H PRN PRN #20 tab PRN Reason: Nausea Transmission Status: Pending to [id number] Referrals: Matias Mcmullen MD [STAFF PHYSICIAN] -
[2020-05-04 23:39] LABS: Absolute Lymphocyte Count 4.77 X10^3/uL (0.83-4.51); Absolute Neutrophil Count 3.3 X10^3/uL (2.0-7.7); Basophil# 0.05 X10^3/uL; Basophil% 0.6 % (0-1); Eosinophil# 0.19 X10^3/uL; Eosinophils% 2.2 % (0-5); Hematocrit 40.2 % (37-47); Hemoglobin 14.1 g/dL (12.0-15.0); Lymphocyte # 4.77 X10^3/ul (4.0); Mean Corp Hgb Conc 35.1 g/dL (32-36); Mean Corpuscular Hgb 32.9 pg (27.0-32.0); Mean Corpuscular Volume 93.9 fL (81-99); Mean Platelet Vol. 11.1 fl (6.2-12.0); Monocyte# 0.46 X10^3/uL; Monocyte% 5.2 % (0-10); NRBC Flagged by Analyzer 0 % (0-5); Neutrophil # 3.34 X10^3/uL (2.7-7.7); Neutrophil % 37.8 % (47-70); Platelet Count 229 K/mm3 (150-450); RBC Distribution Width CV 12.4 % (11.6-14.6); Red Blood Count 4.28 M/mm3 (4.2-5.4); White Blood Count 8.8 K/mm3 (4.4-11.0)
[2020-05-04] MEDS: 0.9% Normal Saline 1,000 ML 250 ML IV (23:42)
[2020-05-04] MEDS: Ondansetron 4 MG/2 ML Vial IV (23:42)
[2020-05-04] MEDS: Morphine 4 MG/ML Syringe IV (23:42)
[2020-05-04 23:44] LABS: Internal QC Validated? YES +Cl - CLEAR BKGD; Pregnancy, Serum, hCG Quali. NEGATIVE Negative
[2020-05-04 23:49] LABS: Anion Gap 4 (5-15); BUN 11 mg/dL (7-18); BUN/Creat Ratio 10.9 RATIO (10-20); Calcium,Total 9.2 mg/dL (8.5-10.1); Chloride 108 mmol/L (98-107); Creatinine, Serum 1.01 mg/dL (0.55-1.02); EST Glomerular Filtration Rate 67 mL/min (>60); Est Glom Filt Rate - Afr Amer 81 mL/min (>60); Estimated Creatinine Clearance 56.37 ml/min; Glucose 167 mg/dL (74-106); Potassium 3.5 mmol/L (3.5-5.1); Sodium Level 141 mmol/L (136-145)
[2020-05-05 00:15] LABS: Bacteria 0 SEEN /hpf (None Seen); Mucous, Urine 0 SEEN /hpf (<or=2+)
[2020-05-05] MEDS: Ondansetron 4 MG/2 ML Vial IV (00:20)
[2020-05-05] MEDS: Ketorolac 15 MG/ML Vial IV (00:20)
[2020-05-05] MEDS: Morphine 4 MG/ML Syringe IV (00:21)
[2020-05-05 00:26] LABS: Color, Urine Yellow (Yellow); Glucose, Dipstick Normal (Normal); Ketone-Dipstick 5 mg/dl (Negative); Leukocyte Esterase-Dipstick 25 /ul (Negative); Nitrite-Dipstick Negative (Negative); Occult Blood-Urine Negative /ul (Negative); Protein-Dipstick Negative (Negative); Specific Gravity, Urine 1.025 (1.002-1.030); Urine Bilirubin Dipstick Negative (Negative); Urine Clarity Sl. Cloudy (Clear); Urine Urobilinogen Normal (Normal)
[2020-05-05 00:39] LABS: Red Blood Cells-Urine 0-5 SEEN /hpf (0-5); Squamous Epithelial Cells - UA 5-10 SEEN /hpf (5-10); White Blood Cells 0-5 SEEN /hpf (0-5)
[2020-05-05 01:13] VITALS: BP 141/70; PULSE 87; RESP 18; O2SAT 97
== END 2020-05-05 01:15 | disposition home or self-care (01) ==
PROVIDERS: Emergency Provider Emergency Medicine; PCP Internal Medicine
DX: R10.9 Unspecified abdominal pain (principal); Z87.442 Personal history of urinary calculi
CPT/HCPCS: 80048; 81001; 84703; 85025; 96361; 96374; 96375; 96376; 99282; J7030; A4216; J2405

== ENCOUNTER 2020-11-22 23:03 | Emergency (ER) | payer MEDICAID, SELFPAY ==
[2020-11-22 23:06] VITALS: BP 127/86; PULSE 107; TEMP 36.2; O2SAT 98; BMI 35.7
--- NOTE | 2020-11-22 23:19 | RAD_ITS ---
STUDY: X-RAY CHEST REASON FOR EXAM: Female, 35 years old. chest pain TECHNIQUE: AP portable chest. COMPARISON: August 25, 2013. FINDINGS: No focal infiltrates or effusions. No pneumothorax. Normal size heart. Normal mediastinum and winnie. Normal visualized pulmonary arteries. Normal visualized aortic arch and descending thoracic aorta. Normal visualized thoracic spine. Normal visualized ribs, clavicles, and shoulders. There is no demonstrated abnormality of the visualized soft tissue structures of the upper abdomen. RAD/Chest 1 View (Portable) IMPRESSION: Normal x-ray examination of the chest. Electronically Signed: Marko Alvarez MD at 1:03 EDT , Service support ,
--- NOTE | 2020-11-22 23:19 | EKG12_ITS ---
Test Reason : CP Blood Pressure : / mmHG Vent. Rate : 096 BPM Atrial Rate : 096 BPM P-R Int : 162 ms QRS Dur : 084 ms QT Int : 336 ms P-R-T Axes : 041 058 050 degrees QTc Int : 424 ms Normal sinus rhythm Normal ECG Confirmed by ALETHEA ARAYA, MASOUD ([id number]), film editor supervisor JAMIA ULLOA ([id number]) on 11/26/2020 9:49:36 AM Referred By: DR TAYLOR Confirmed By:MASOUD CLAIRE MD
--- NOTE | 2020-11-22 23:21 | ED.VIS.CHEST ---
HPI History of Present Illness Chief Complaint: Chest Pain Informant: patient Onset/Context/Timing Onset: Hours (12 hours) Activity at onset: rest Timing: Intermittent Quality: Positive for Pressure and Stabbing Current Severity: Moderate Maximum Severity: Moderate Associated Symptoms: Positive for Nausea, Vomiting (Vomited x1), Diaphoresis and Dyspnea Narrative Prior Similar Symptoms: No CVD Risk Factors: Positive for Diabetes PE Risk Factors: Positive for Prior DVT or PE; Negative for Recent Travel/Surgery, Recent Immobilization and OCP + Smoking + >/=35 PFSH PFSH Medical History Anxiety Depression Diabetes DVT (deep venous thrombosis) Knee arthropathy Home Medications alprazolam [Xanax] 1 mg PO TID PRN PRN 11/24/17 [History Last Taken Unknown] furosemide 1 tab PO DAILY 06/11/19 [History Last Taken Unknown] hydrochlorothiazide 1 tab PO DAILY 06/11/19 [History Last Taken Unknown] amitriptyline 10 mg PO DAILY 11/22/20 [History Last Taken Unknown] atorvastatin 20 mg PO DAILY 11/22/20 [History Last Taken Unknown] metformin 500 mg PO BID 11/22/20 [History Last Taken Unknown] nitrofurantoin monohyd/m-cryst 100 mg PO BID 11/22/20 [History Last Taken Unknown] hydrocodone-acetaminophen 1 tab PO Q6H PRN 3 Days #10 tab 11/23/20 [Rx Last Taken Unknown] prednisone 60 mg PO DAILY #12 tab 11/23/20 [Rx Last Taken Unknown] Allergy/AdvReac Type Severity Reaction Status Date / Time Penicillins Allergy Hives Verified 05/04/20 23:12 azithromycin [From Zithromax] AdvReac Vomiting Verified 05/04/20 23:12 latex AdvReac Rash Verified 05/04/20 23:12 minocycline [Minocycline] AdvReac Other Verified 11/22/20 23:15 NSAIDS (Non-Steroidal AdvReac Bleeding Verified 11/22/20 23:15 Anti-Inflamma tramadol AdvReac Shortness Verified 05/04/20 23:12 of breath Surgical History (Updated 11/22/20 @ 23:11 by Evelia Ulrich) History of cholecystectomy Social History Smoking Status: Never smoker ROS ROS ED Constitutional Constitutional ED: Denies chills or fever(s) Eyes Eyes: Denies change in vision ENT ENT ED: Denies sore throat Cardiovascular Cardiovascular: Reports chest pain and palpitations Respiratory/Chest Respiratory/Chest: Reports dyspnea; Denies cough Gastrointestinal Gastrointestinal: Reports nausea and vomiting; Denies abdominal pain or diarrhea Genitourinary Genitourinary ED: Denies dysuria Musculoskeletal Musculoskeletal: Denies back pain Integumentary Denies rash Neurologic Neurologic: Denies headache(s) or weakness Psychiatric Psychiatric: Denies anxiety or depression Endocrine Endocrinology: Denies polydipsia or polyuria Allergic/Immunologic Allergic/Immunologic ED: Denies urticaria EXAM Physical Exam Const Vital Signs: 11/22/20 23:06 11/22/20 23:09 11/22/20 23:37 Temperature 97.2 F L Temperature Source Temporal Pulse Rate 107 H Respiratory Rate Respiratory Effort Normal Blood Pressure 127/86 H Blood Pressure Mean 99 Pulse Ox 98 Oxygen Delivery Method Room Air 11/23/20 02:31 Temperature Temperature Source Pulse Rate 71 Respiratory Rate 18 Respiratory Effort Blood Pressure 116/64 Blood Pressure Mean 81 Pulse Ox 99 Oxygen Delivery Method Positive well nourished and well developed General Appearance ED: well developed HEENT Reports normocephalic and head/scalp atraumatic Eyes PERRL and EOMs intact bilaterally Neck supple Chest Wall inspection of chest normal and palpation of chest normal Resp normal respiratory effort and clear to auscultation bilaterally Cardio regular rate and regular rhythm GI normal to inspection, nondistended, normoactive bowel sounds Palpation: soft Back/Spine no CVA tenderness Extremity normal to inspection General Extremety ED: Negative for edema General Extremity: Negative for edema Neuro oriented x3 and no sensory deficits noted Sensorium / Orientation: alert Motor Exam: strength 5/5 throughout Psych mental status grossly normal Skin no rashes or lesions noted Heart Score History: Slightly/Non-Suspicious ECG: Normal Age: </= 45 years Risk Factors: No Risk Factors Troponin: </= Normal Limit Score: 0 MDM MDM MDM Narrative Medical decision making narrative: Patient taken to baby aspirin at home. She is given 2 additional baby aspirin here along with a dose of morphine for pain. EKG, chest x-ray, labs obtained. Lab Data Attestation: I reviewed the patient's lab results. Labs: Laboratory Results - last 24 hr 11/22/20 11/22/20 11/22/20 23:11 23:11 23:30 WBC 8.6 RBC 4.22 Hgb 13.3 Hct 39.1 MCV 92.7 MCH 31.5 MCHC 34.0 RDW Std Deviation 40.7 RDW Coeff of Louis 12.0 Plt Count 205 MPV 11.0 Immature Gran % (Auto) 0.800 Neut % (Auto) 38.5 L Lymph % (Auto) 53.4 H [place] % (Auto) 5.2 Eos % (Auto) 1.6 Baso % (Auto) 0.5 Absolute Neuts (auto) 3.3 Absolute Lymphs (auto) 4.60 H Nucleated RBC % 0 D-Dimer Quant (PE/DVT) 0.82 H* Sodium 140 Potassium 3.9 Chloride 104 Carbon Dioxide 30.0 Anion Gap 6 BUN 12 Creatinine 0.81 Estim Creat Clear Calc 70.29 Est GFR (MDRD) Af Amer 104 Est GFR (MDRD) Non-Af 86 BUN/Creatinine Ratio 14.9 Glucose 144 H Calcium 9.5 Troponin I < 0.015 Radiography Chest X-Ray - ED: 1 View, Read by ED Physician, Normal, Heart, Lungs and Mediastinum Diagnostic Testing: Radiology Impression Chest X-Ray 11/22/20 23:19 IMPRESSION: Normal x-ray examination of the chest. Electronically Signed: Marko Alvarez MD at 1:03 EDT , Service support , Chest CTA 11/23/20 00:05 IMPRESSION: Normal CTA chest examination, without a demonstrated pulmonary embolism or arterial dissection. Electronically Signed: Marko Alvarez MD at 1:40 EDT , Service support , EKG Initial EKG: Attestation: I personally reviewed and interpreted this EKG as follows: Interpretation: Sinus Rhythm (Sinus at 96 with no acute ischemia.) Follow-up EKG: Attestation: I personally reviewed and interpreted this EKG as follows: Interpretation: Sinus Rhythm (Sinus at 94 with no acute ischemia.) Treatment and Re-Evaluation Comments:: Patient's chest x-ray is unremarkable. Lab work does return with a slightly elevated D-dimer. She does have a history of DVT. CTA of the chest is obtained and reveals no evidence of PE at this time. Patient will be treated with a short course of [place] at home along with prednisone to help with chest wall inflammation. Return instructions are provided. Addendum: Nursing staff states they got a phone call from the pharmacy as they were filling her medications. They noted the patient takes oxycodone regularly and had just received a prescription for 120 tabs. Her [place] is not filled. We had not been advised that she was currently taking oxycodone at home. Discharge Plan Triage Chief Complaint: Chest Pain ED Provider: Terrie Maya Dx/Rx/DC Orders Clinical Impression: Atypical chest pain Instructions: ED Chest Wall Pain, Costochondritis Prescriptions: New hydrocodone-acetaminophen 5-325 mg tablet 1 tab PO Q6H PRN (Reason: pain) 3 Days Qty: 10 RF: 0 prednisone 20 mg tablet 60 mg PO DAILY Qty: 12 RF: 0 No Action alprazolam [Xanax] 1 MG tablet 1 mg PO TID PRN PRN (Reason: Anxiety) RF: 0 furosemide 40 MG tablet 1 tab PO DAILY RF: 0 hydrochlorothiazide 25 MG tablet 1 tab PO DAILY RF: 0 atorvastatin 10 mg tablet 20 mg PO DAILY RF: 0 amitriptyline 10 mg tablet 10 mg PO DAILY RF: 0 metformin 500 mg tablet extended release 24hr 500 mg PO BID RF: 0 nitrofurantoin monohyd/m-cryst 100 mg capsule 100 mg PO BID RF: 0 Primary Care Provider: Gwen Verdin Referrals: Gwen Verdin MD [Primary Care Provider] - 3-5 Days if not improving Disposition Disposition: Home, self care Discharge Date/Time: 11/23/20 02:32
[2020-11-22] MEDS: Morphine 4 MG/ML Syringe IV (23:27)
[2020-11-22] MEDS: Ondansetron 4 MG/2 ML Vial IV (23:27)
[2020-11-22 23:37] LABS: Absolute Neutrophil Count 3.3 X10^3/uL (2.0-7.7); Basophil# 0.04 X10^3/uL; Basophil% 0.5 % (0-1); Eosinophil# 0.14 X10^3/uL; Eosinophils% 1.6 % (0-5); Hematocrit 39.1 % (37-47); Hemoglobin 13.3 g/dL (12.0-15.0); Lymphocyte % 53.4 % (19-41); Mean Corpuscular Hgb 31.5 pg (27.0-32.0); Mean Corpuscular Volume 92.7 fL (81-99); Monocyte# 0.45 X10^3/uL; Monocyte% 5.2 % (0-10); NRBC Flagged by Analyzer 0 % (0-5); Neutrophil # 3.32 X10^3/uL (2.7-7.7); Neutrophil % 38.5 % (47-70); Platelet Count 205 K/mm3 (150-450); RBC Distribution Width SD 40.7 fl (35.1-43.9); Red Blood Count 4.22 M/mm3 (4.2-5.4); White Blood Count 8.6 K/mm3 (4.4-11.0)
[2020-11-22] MEDS: Aspirin 81 MG TAB.CHEW 162 MG PO (23:37)
[2020-11-22] MEDS: 0.9% Normal Saline 1,000 ML 150 ML IV (23:37)
[2020-11-22 23:49] LABS: D-Dimer Quantitative (DVT/PE) 0.82 FEU/ug/m (0.27-0.49)
[2020-11-22 23:54] LABS: Anion Gap 6 (5-15); BUN 12 mg/dL (7-18); BUN/Creat Ratio 14.9 RATIO (10-20); Calcium,Total 9.5 mg/dL (8.5-10.1); Chloride 104 mmol/L (98-107); Creatinine, Serum 0.81 mg/dL (0.55-1.02); EST Glomerular Filtration Rate 86 mL/min (>60); Est Glom Filt Rate - Afr Amer 104 mL/min (>60); Estimated Creatinine Clearance 70.29 ml/min; Glucose 144 mg/dL (74-106); Potassium 3.9 mmol/L (3.5-5.1); Sodium Level 140 mmol/L (136-145)
--- NOTE | 2020-11-23 00:05 | CT_ITS ---
STUDY: CTA CHEST REASON FOR EXAM: Female, 35 years old. Chest pain. RADIATION DOSAGE (If Supplied By Facility): CTDIvol = ( 10.91 ) mGy, DLP = ( 446.05 ) mGycm TECHNIQUE: The examination was performed with the intravenous administration of IV 100mL Isovue-370. Post-processing of the angiographic images was performed, with multiplanar reformation and maximum intensity projections.. Individualized dose optimization techniques were used for this CT. COMPARISON: April 20, 2014. Chest x-ray November 22, 2020. FINDINGS: Normal enhancement of the main pulmonary artery and right and left pulmonary arteries. Normal enhancement of the bilateral peripheral pulmonary arteries. There is no demonstrated pulmonary embolism. Normal thoracic aorta and visualized great vessels. There is no demonstrated aortic dissection. Normal heart and pericardium. Normal mediastinum. Normal hilar regions. Normal visualized trachea and bronchi. The lungs are well expanded. No focal infiltrates or effusions. No pneumothorax. Normal pleura. Normal chest wall structures. Normal osseous structures. Surgical clips in the gallbladder fossa. CT/CTA Chest W/WO Contrast IMPRESSION: Normal CTA chest examination, without a demonstrated pulmonary embolism or arterial dissection. Electronically Signed: Marko Alvarez MD at 1:40 EDT , Service support ,
--- NOTE | 2020-11-23 01:09 | EKG12_ITS ---
Test Reason : CP Blood Pressure : / mmHG Vent. Rate : 094 BPM Atrial Rate : 094 BPM P-R Int : 168 ms QRS Dur : 084 ms QT Int : 350 ms P-R-T Axes : 049 082 066 degrees QTc Int : 437 ms Normal sinus rhythm Normal ECG Confirmed by ALETHEA ARAYA, MASOUD ([id number]), primer expeditor and drier JAMIA ULLOA ([id number]) on 11/26/2020 9:49:53 AM Referred By: REESE Confirmed By:MASOUD CLAIRE MD
[2020-11-23] MEDS: Morphine 4 MG/ML Syringe IV (01:40)
[2020-11-23] MEDS: HYDROcodone Bitartrate/Apap 5/325 Tablet PO (02:30)
[2020-11-23 02:31] VITALS: BP 116/64; PULSE 71; RESP 18; O2SAT 99
[2020-11-23] MEDS: predniSONE 20 MG Tablet 60 MG PO (02:31)
== END 2020-11-23 02:32 | disposition home or self-care (01) ==
PROVIDERS: Emergency Provider Emergency Medicine; PCP Internal Medicine
DX: R07.89 Other chest pain (principal); R79.89 Other specified abnormal findings of blood chemistry; R11.2 Nausea with vomiting, unspecified; R06.00 Dyspnea, unspecified; E11.9 Type 2 diabetes mellitus without complications; F32.9 Major depressive disorder, single episode, unspecified; F41.9 Anxiety disorder, unspecified; Z79.84 Long term (current) use of oral hypoglycemic drugs; Z79.52 Long term (current) use of systemic steroids; Z79.899 Other long term (current) drug therapy; Z86.718 Personal history of other venous thrombosis and embolism
CPT/HCPCS: 71045; 71275; 80048; 84484; 85025; 85379; 93005; 96361; 96374; 96375; 96376; 99285; J7030; Q9967; A4216; J2405

== ENCOUNTER 2020-11-23 17:10 | Observation (INO) | payer MEDICAID, SELFPAY ==
[2020-11-22 23:06] VITALS: BMI 35.7
[2020-11-23] VITALS (9 sets, daily range): BP systolic 89–135; BP diastolic 50–87; PULSE 110–123; RESP 12–25; TEMP 36.2–37.1; O2SAT 94–100; BMI 41.8; BMI 34.6
--- NOTE | 2020-11-23 17:34 | EKG12_ITS ---
Test Reason : CP Blood Pressure : / mmHG Vent. Rate : 113 BPM Atrial Rate : 113 BPM P-R Int : 158 ms QRS Dur : 088 ms QT Int : 336 ms P-R-T Axes : 058 081 061 degrees QTc Int : 460 ms Sinus tachycardia Otherwise normal ECG Confirmed by ALETHEA ARAYA, MASOUD ([id number]), metropolitan editor JAMIA ULLOA ([id number]) on 11/26/2020 9:57:04 AM Referred By: SCOTTY Confirmed By:MASOUD CLAIRE MD
[2020-11-23] MEDS: Ondansetron 4 MG/2 ML Vial IV (17:42)
[2020-11-23] MEDS: Morphine 4 MG/ML Syringe IV (17:42)
[2020-11-23] MEDS: Mag Hydrox/Al Hydrox/Simeth 30 ML UDC PO (17:42)
[2020-11-23 17:43] LABS: Absolute Lymphocyte Count 1.92 X10^3/uL (0.83-4.51); Absolute Neutrophil Count 12.8 X10^3/uL (2.0-7.7); Basophil# 0.02 X10^3/uL; Basophil% 0.1 % (0-1); Hematocrit 37.4 % (37-47); Hemoglobin 13.1 g/dL (12.0-15.0); Lymphocyte # 1.92 X10^3/ul (0.83-4.51); Lymphocyte % 12.5 % (19-41); Mean Corpuscular Hgb 31.6 pg (27.0-32.0); Mean Corpuscular Volume 90.3 fL (81-99); Mean Platelet Vol. 11.2 fl (6.2-12.0); Monocyte# 0.62 X10^3/uL; NRBC Flagged by Analyzer 0 % (0-5); Neutrophil # 12.76 X10^3/uL (2.7-7.7); Neutrophil % 82.8 % (47-70); Platelet Count 218 K/mm3 (150-450); RBC Distribution Width CV 11.9 % (11.6-14.6); Red Blood Count 4.14 M/mm3 (4.2-5.4); White Blood Count 15.4 K/mm3 (4.4-11.0)
--- NOTE | 2020-11-23 17:55 | RAD_ITS ---
STUDY: X-RAY CHEST REASON FOR EXAM: Female, 35 years old. chest pain TECHNIQUE: Frontal and lateral views of the chest. COMPARISON: 11/22/2020. FINDINGS: The lungs are clear and expanded. There is no demonstrated pleural abnormality. Normal size heart. Normal mediastinum and winnie. Normal visualized pulmonary arteries. Normal visualized aortic arch and descending thoracic aorta. Normal visualized thoracic spine. Normal visualized ribs, clavicles, and shoulders. There is no demonstrated abnormality of the visualized soft tissue structures of the upper abdomen. RAD/Chest PA and Lateral IMPRESSION: Normal x-ray examination of the chest. Electronically Signed: Wilberto Gray MD at 18:27 EDT , Service support ,
[2020-11-23 18:08] LABS: ALB/GLOB Ratio 0.9 RATIO (0.9-2.4); AST(SGOT) 59 U/L (15-37); Alanine Aminotransfer ALT/SGPT 90 U/L (13-56); Albumin, Serum 3.5 g/dL (3.2-5.0); Alkaline Phosphatase 112 U/L (45-117); Anion Gap 11 (5-15); BUN 13 mg/dL (7-18); BUN/Creat Ratio 13.2 RATIO (10-20); Calcium,Total 9.2 mg/dL (8.5-10.1); Chloride 101 mmol/L (98-107); Creatinine, Serum 0.98 mg/dL (0.55-1.02); EST Glomerular Filtration Rate 69 mL/min (>60); Est Glom Filt Rate - Afr Amer 83 mL/min (>60); Globulin 4.1 g/dL (2.2-4.2); Glucose 190 mg/dL (74-106); Lipase 198 U/L (73-393); Potassium 4.1 mmol/L (3.5-5.1); Protein, Total 7.6 g/dL (6.4-8.2); Sodium Level 138 mmol/L (136-145); Thyroid Stim Hormone (TSH) 1.09 uIU/mL (0.358-3.74)
[2020-11-23 18:26] LABS: Bacteria 0 SEEN /hpf (None Seen); Mucous, Urine 0 SEEN /hpf (<or=2+); Red Blood Cells-Urine 0 SEEN /hpf (0-5); White Blood Cells 0 SEEN /hpf (0-5)
[2020-11-23 18:29] LABS: Color, Urine Yellow (Yellow); Glucose, Dipstick Normal (Normal); Ketone-Dipstick 5 mg/dl (Negative); Leukocyte Esterase-Dipstick Negative /ul (Negative); Nitrite-Dipstick Negative (Negative); Occult Blood-Urine Negative /ul (Negative); Protein-Dipstick Negative (Negative); Specific Gravity, Urine 1.005 (1.002-1.030); Urine Bilirubin Dipstick Negative (Negative); Urine Clarity Sl. Cloudy (Clear); Urine Urobilinogen Normal (Normal)
[2020-11-23 18:37] LABS: Squamous Epithelial Cells - UA 0-5 SEEN /hpf (5-10)
[2020-11-23] MEDS: HYDROmorphone 1 MG/ML Syringe IV (19:30)
[2020-11-23] MEDS: 0.9% Normal Saline 1,000 ML 1000 ML IV (19:30)
--- NOTE | 2020-11-23 19:36 | EDS_ITS ---
HPI History of Present Illness Chief Complaint: Chest Pain Narrative Narrative: Patient presenting for evaluation secondary chest pain. Patient was seen in the emergency department earlier today for chest pain, had an extensive work-up including CT angiogram and was discharged home on a course of prednisone and [place] for likely treatment of costochondritis. Patient apparently was unable to get her [place] filled because she also gets chronic pain medication from the pharmacy and was supposed already have enough. Patient states that she is continuing to have chest pain. Is a very severe left-sided pain that causes her to double over and does radiate back into her back. Patient also states associated with some abdominal symptoms. She denies any nausea or vomiting or diarrhea. She denies any urinary signs or symptoms such as dysuria hematuria but does also report that she recently had a urinary tract infection. She denies any underlying history of DVT or PE, any connective tissue disorder. Review of systems otherwise negative. [facility] Medical History Anxiety Asthma Chest pain Depression Diabetes DVT (deep venous thrombosis) Kidney stones Knee arthropathy Migraines Home Medications alprazolam [Xanax] 1 mg PO TID PRN PRN 11/24/17 [History Last Taken 11/23/20] furosemide 40 mg PO DAILY 06/11/19 [History Last Taken 11/23/20] hydrochlorothiazide 25 tab PO DAILY 06/11/19 [History Last Taken 11/23/20] amitriptyline 10 mg PO QHS 11/22/20 [History Last Taken 11/22/20] atorvastatin 20 mg PO QHS 11/22/20 [History Last Taken 11/22/20] metformin 500 mg PO BID 11/22/20 [History Last Taken 11/23/20] nitrofurantoin monohyd/m-cryst 100 mg PO BID 11/22/20 [History Last Taken 11/23/20] glipizide 5 mg PO DAILY PRN PRN 11/23/20 [History Last Taken 11/23/20] prednisone 60 mg PO DAILY #12 tab 11/23/20 [Rx Last Taken 11/23/20] promethazine 25 mg PO Q6H PRN PRN 11/23/20 [History Last Taken Unknown] Allergy/AdvReac Type Severity Reaction Status Date / Time Penicillins Allergy Hives Verified 11/23/20 17:11 azithromycin [From Zithromax] AdvReac Vomiting Verified 11/23/20 17:11 latex AdvReac Rash Verified 11/23/20 17:11 minocycline [Minocycline] AdvReac Other Verified 11/23/20 17:11 NSAIDS (Non-Steroidal AdvReac Bleeding Verified 11/23/20 17:11 Anti-Inflamma tramadol AdvReac Shortness Verified 11/23/20 17:11 of breath Family History Mother Diabetes Surgical History H/O: hysterectomy History of cholecystectomy Social History Smoking Status: Never smoker ROS ROS ED Constitutional Constitutional ED: Denies fever(s) Eyes Eyes: Denies change in vision ENT ENT ED: Denies rhinorrhea or sore throat Cardiovascular Cardiovascular: Reports as per HPI and chest pain Respiratory/Chest Respiratory/Chest: Denies cough, dyspnea or dyspnea on exertion Gastrointestinal Gastrointestinal: Denies abdominal pain, nausea or vomiting Genitourinary Genitourinary ED: Denies dysuria Musculoskeletal Musculoskeletal: Denies myalgias or neck pain Integumentary Denies rash Neurologic Neurologic: Denies headache(s), paresthesias or weakness Psychiatric Psychiatric: Denies depression Endocrine Endocrinology: Denies polydipsia or polyuria Hematologic/Lymphatic Hematologic/Lymphatic: Denies easy bleeding or easy bruising Allergic/Immunologic Allergic/Immunologic ED: Denies urticaria EXAM Physical Exam Const Vital Signs: 11/23/20 17:11 11/23/20 17:16 11/23/20 17:38 Temperature 97.2 F L Temperature Source Temporal Pulse Rate 119 H Respiratory Rate 22 H Respiratory Effort Short of Breath Blood Pressure 135/72 H Blood Pressure Mean 93 Pulse Ox 100 98 Oxygen Delivery Method Room Air Room Air 11/23/20 18:10 11/23/20 19:00 Temperature Temperature Source Pulse Rate 113 H 120 H Respiratory Rate 25 H 12 Respiratory Effort Blood Pressure 132/78 H 131/87 H Blood Pressure Mean 96 101 Pulse Ox 98 94 Oxygen Delivery Method Room Air Room Air Positive well nourished and well developed Constitutional Narrative: Patient appears acutely distressed and is crying holding her chest on the room General Appearance ED: well developed HEENT Reports moist mucous membranes normocephalic and atraumatic Eyes EOMs intact bilaterally Neck no lymphadenopathy, supple and no JVD Chest Wall inspection of chest normal Chest Narrative: No evidence of vesicular rash Pain on palpation of the left chest Resp normal respiratory effort and clear to auscultation bilaterally Auscultation: Negative for rales, rhonchi or wheezes Cardio regular rhythm, S1 normal heart sound, S2 normal heart sound and no murmurs Rate: tachycardic Peripheral Pulses: radial pulses present and posterior tibial pulses present GI normal to inspection, nondistended, normoactive bowel sounds, soft to palpation and non-tender Extremity normal to inspection Extremity Narrative: Calves are supple no palpable cord General Extremety ED: Negative for edema or tenderness General Extremity: Negative for edema Neuro oriented x3 and no sensory deficits noted Sensorium / Orientation: awake and alert Motor Exam: strength abnormal Psych mental status grossly normal Skin no rashes or lesions noted Heart Score History: Slightly/Non-Suspicious ECG: Normal Age: </= 45 years Risk Factors: >/= 3 Risk Factors or History of CAD Troponin: </= Normal Limit Score: 2 MDM MDM MDM Narrative Medical decision making narrative: Patient presented secondary to continuing chest pain. I reviewed the patient's prior records, she had an extensive work- up including lab work and CT angiogram that were found to be negative. I broaden the differential on the patient and added on a CMP, lipase, and urinalysis on the patient which were found to be negative. She still has a negative troponin. Patient was treated initially with morphine and Zofran in the emergency department. Repeat evaluation of the patient actually seems to show her getting somewhat worse and her heart rate went from 119 up to 140. She does not have any ischemic changes on her EKG, also no arrhythmic changes. Regardless, the patient does have continued chest pain, is a repeat visit, and has an abnormal tachycardic heart rate so I do believe that she requires admission. There could potentially be an element of anxiety to this, but I still feel that the patient requires admission for further observation until her vital signs normalized. Lab Data Labs: Laboratory Results - last 24 hr 11/23/20 11/23/20 11/23/20 17:27 17:27 18:10 WBC 15.4 H RBC 4.14 L Hgb 13.1 Hct 37.4 MCV 90.3 MCH 31.6 MCHC 35.0 RDW Std Deviation 39.0 RDW Coeff of [place] 11.9 Plt Count 218 MPV 11.2 Immature Gran % (Auto) 0.600 Neut % (Auto) 82.8 H Lymph % (Auto) 12.5 L [place] % (Auto) 4.0 Eos % (Auto) 0.0 Baso % (Auto) 0.1 Absolute Neuts (auto) 12.8 H Absolute Lymphs (auto) 1.92 Nucleated RBC % 0 Sodium 138 Potassium 4.1 Chloride 101 Carbon Dioxide 26.0 Anion Gap 11 BUN 13 Creatinine 0.98 Estim Creat Clear Calc 58.10 Est GFR (MDRD) Af Amer 83 Est GFR (MDRD) Non-Af 69 BUN/Creatinine Ratio 13.2 Glucose 190 H Calcium 9.2 Total Bilirubin 0.30 AST 59 H ALT 90 H Alkaline Phosphatase 112 Troponin I < 0.015 Total Protein 7.6 Albumin 3.5 Globulin 4.1 Albumin/Globulin Ratio 0.9 Lipase 198 TSH 1.09 Urine Color Yellow Urine Clarity Sl. Cloudy Urine pH 7.0 Ur Specific [place] 1.005 Urine Protein Negative Urine Glucose (UA) Normal Urine Ketones 5 H Urine Occult Blood Negative Urine Nitrite Negative Urine Bilirubin Negative Urine Urobilinogen Normal Ur Leukocyte Esterase Negative Urine RBC 0 SEEN Urine WBC 0 SEEN Ur Squamous Epith Cells 0-5 SEEN Urine Bacteria 0 SEEN Urine Mucus 0 SEEN Radiography Chest X-Ray - ED: Read by ED Physician and Normal Diagnostic Testing: Radiology Impression Chest X-Ray 11/23/20 17:55 IMPRESSION: Normal x-ray examination of the chest. Electronically Signed: Wilberto Gray MD at 18:27 EDT , Service support , EKG Initial EKG: Attestation: I personally reviewed and interpreted this EKG as follows: (Sinus tachycardia with a rate of 113, isoelectric ST segments normal T waves, no evidence of evolution from EKG earlier today) Discharge Plan Dx/Rx/DC Orders Clinical Impression: Atypical chest pain Disposition Disposition: Acute Care Hospital [facility] Discharge Date/Time: 11/23/20 19:47
--- NOTE | 2020-11-23 19:47 | PCM.HP.STD ---
Documented by User: ZACK Gresham 11/23/20 20:00 HPI - General General Date of Admission: 11/23/20 HPI Narrative VEL FARR, is a 35 F who presents today for atypical chest pain. Patient states that the chest pain started yesterday afternoon and she was seen in the ER yesterday where a DVT, PE, and pneumonia were ruled out. Patient states when she left the ER yesterday that the chest pain had subsided however today while she was in a parking lot with her children the pain returned and was stabbing in 10 out of 10. Pain is located on the left side of the chest at the fifth and sixth intercostal. Pain is reproducible with palpation. Patient was diagnosed with costochondritis during yesterday's ER visit and was started on prednisone. Patient was not given NSAIDs due to a history of bleeding. [facility] Medical History Anxiety Asthma Chest pain Depression Diabetes DVT (deep venous thrombosis) Kidney stones Knee arthropathy Migraines Home Medications alprazolam [Xanax] 1 mg PO TID PRN PRN 11/24/17 [History Last Taken 11/23/20] furosemide 40 mg PO DAILY 06/11/19 [History Last Taken 11/23/20] hydrochlorothiazide 25 tab PO DAILY 06/11/19 [History Last Taken 11/23/20] amitriptyline 10 mg PO QHS 11/22/20 [History Last Taken 11/22/20] atorvastatin 20 mg PO QHS 11/22/20 [History Last Taken 11/22/20] metformin 500 mg PO BID 11/22/20 [History Last Taken 11/23/20] nitrofurantoin monohyd/m-cryst 100 mg PO BID 11/22/20 [History Last Taken 11/23/20] glipizide 5 mg PO DAILY PRN PRN 11/23/20 [History Last Taken 11/23/20] prednisone 60 mg PO DAILY #12 tab 11/23/20 [Rx Last Taken 11/23/20] promethazine 25 mg PO Q6H PRN PRN 11/23/20 [History Last Taken Unknown] Allergy/AdvReac Type Severity Reaction Status Date / Time Penicillins Allergy Hives Verified 11/23/20 17:11 azithromycin [From Zithromax] AdvReac Vomiting Verified 11/23/20 17:11 latex AdvReac Rash Verified 11/23/20 17:11 minocycline [Minocycline] AdvReac Other Verified 11/23/20 17:11 NSAIDS (Non-Steroidal AdvReac Bleeding Verified 11/23/20 17:11 Anti-Inflamma tramadol AdvReac Shortness Verified 11/23/20 17:11 of breath Family History Mother Diabetes Surgical History H/O: hysterectomy History of cholecystectomy Social History Smoking Status: Never smoker ROS Constitutional Constitutional: Denies anorexia, chills, fatigue, fever(s) or weakness Cardiovascular Cardiovascular: Reports chest pain, nausea, rapid heart rate and vomiting; Denies edema or palpitations Respiratory/Chest Respiratory/Chest: Denies cough, shortness of breath at rest or shortness of breath with exertion Gastrointestinal Gastrointestinal: Denies abdominal pain, constipation or diarrhea Genitourinary Genitourinary: Denies dysuria Musculoskeletal Musculoskeletal: Denies back pain, extremity pain or joint pain Integumentary Integumentary: Denies dry skin Neurologic Neurologic: Denies abnormal gait, abnormal speech, confusion or dizziness Psychiatric Psychiatric: Reports anxiety and depression Endocrine Endocrinology: Denies change in body appearance Hematologic/Lymphatic Hematologic/Lymphatic: Denies easy bleeding or easy bruising Vital Signs Vital Signs Vital Signs: 11/23/20 17:11 11/23/20 17:16 11/23/20 17:38 Temperature 97.2 F L Temperature Source Temporal Pulse Rate 119 H Respiratory Rate 22 H Respiratory Effort Short of Breath Blood Pressure 135/72 H Blood Pressure Mean 93 Pulse Ox 100 98 Oxygen Delivery Method Room Air Room Air 11/23/20 18:10 11/23/20 19:00 Temperature Temperature Source Pulse Rate 113 H 120 H Respiratory Rate 25 H 12 Respiratory Effort Blood Pressure 132/78 H 131/87 H Blood Pressure Mean 96 101 Pulse Ox 98 94 Oxygen Delivery Method Room Air Room Air Weight Weight: 214 lb 4.629 oz Body Mass Index (BMI) 41.8 Physical Exam Const alert and oriented x3 General Appearance: cooperative HEENT normocephalic and head/scalp atraumatic Eyes PERRL Neck supple, no JVD and thyroid normal General: trachea midline Lymph Lymphatic: no lymphadenopathy noted Resp normal respiratory effort, normal air movement and clear to auscultation bilaterally Cardio regular rhythm, S1 normal heart sound and S2 normal heart sound Palpation: other Other Details: Pain with palpation to fifth and sixth intercostal just left of the sternum Rate: tachycardic Peripheral Pulses: pulses 2+ throughout GI normal to inspection, nondistended, normoactive bowel sounds, soft to palpation and non-tender Extremity normal capillary refill and no clubbing, cyanosis or edema General Extremity: no tenderness to palpation of joints or extremities Skin General Skin Exam: turgor normal Neuro CN's II-XII intact bilaterally Psych cooperative and affect normal Appearance: appropriate Results Lab / Micro Data Result Diagrams: 11/23/20 17:27 11/23/20 17:27 Labs: Laboratory Results - last 24 hr 11/23/20 11/23/20 11/23/20 17:27 17:27 18:10 WBC 15.4 H RBC 4.14 L Hgb 13.1 Hct 37.4 MCV 90.3 MCH 31.6 MCHC 35.0 RDW Std Deviation 39.0 RDW Coeff of [place] 11.9 Plt Count 218 MPV 11.2 Immature Gran % (Auto) 0.600 Neut % (Auto) 82.8 H Lymph % (Auto) 12.5 L [place] % (Auto) 4.0 Eos % (Auto) 0.0 Baso % (Auto) 0.1 Absolute Neuts (auto) 12.8 H Absolute Lymphs (auto) 1.92 Nucleated RBC % 0 Sodium 138 Potassium 4.1 Chloride 101 Carbon Dioxide 26.0 Anion Gap 11 BUN 13 Creatinine 0.98 Estim Creat Clear Calc 58.10 Est GFR (MDRD) Af Amer 83 Est GFR (MDRD) Non-Af 69 BUN/Creatinine Ratio 13.2 Glucose 190 H Calcium 9.2 Total Bilirubin 0.30 AST 59 H ALT 90 H Alkaline Phosphatase 112 Troponin I < 0.015 Total Protein 7.6 Albumin 3.5 Globulin 4.1 Albumin/Globulin Ratio 0.9 Lipase 198 TSH 1.09 Urine Color Yellow Urine Clarity Sl. Cloudy Urine pH 7.0 Ur Specific [place] 1.005 Urine Protein Negative Urine Glucose (UA) Normal Urine Ketones 5 H Urine Occult Blood Negative Urine Nitrite Negative Urine Bilirubin Negative Urine Urobilinogen Normal Ur Leukocyte Esterase Negative Urine RBC 0 SEEN Urine WBC 0 SEEN Ur Squamous Epith Cells 0-5 SEEN Urine Bacteria 0 SEEN Urine Mucus 0 SEEN Radiology Impression Chest X-Ray 11/23/20 17:55 IMPRESSION: Normal x-ray examination of the chest. Electronically Signed: Wilberto Gray MD at 18:27 EDT , Service support , Assessment & Plan Assessment/Plan (1) Atypical chest pain: PLAN: 1. Atypical chest pain -Will admit to PCU for cardiac monitoring, however due to pain being reproducible I do not believe this is cardiac in nature -Treadmill stress test ordered for a.m. -Trend cardiac enzymes -CBC and CMP in a.m., will check a TSH due to tachycardia -Twelve-lead EKG upon arrival to floor -Oxygen per protocol -We will continue prednisone for probable costochondritis, no NSAIDs ordered due to history of bleeding with use. -Chest x-ray and CT were negative for acute findings 2. Nausea and vomiting -IV Zofran and Compazine ordered as needed -Clear liquids, may advance diet when nausea and vomiting subsides 3. Anxiety and depression -Likely contributing to exacerbation of patient's symptoms as she has history of panic attacks -Will continue amitriptyline and as needed Xanax 4. Hypertension -Trend BP and heart rate per protocol -Continue furosemide and hydrochlorothiazide 5. Diabetes mellitus type 2 -AC at bedtime blood sugars with sliding scale insulin ordered -Continue Metformin, will hold as needed glipizide due to sliding scale coverage -DVT prophylaxis-ambulation, no pharmacological prophylaxis indicated This patient was seen by ZACK Gresham under the supervision of Dr. Dao. Documented by User: Dr. Manny Dao MD 11/23/20 23:03 HPI - General General Date of Admission: 11/23/20 [facility] Medical History Anxiety Asthma Chest pain Depression Diabetes DVT (deep venous thrombosis) Kidney stones Knee arthropathy Migraines Home Medications alprazolam [Xanax] 1 mg PO TID PRN PRN 11/24/17 [History Last Taken 11/23/20] furosemide 40 mg PO DAILY 06/11/19 [History Last Taken 11/23/20] hydrochlorothiazide 25 tab PO DAILY 06/11/19 [History Last Taken 11/23/20] amitriptyline 10 mg PO QHS 11/22/20 [History Last Taken 11/22/20] atorvastatin 20 mg PO QHS 11/22/20 [History Last Taken 11/22/20] metformin 500 mg PO BID 11/22/20 [History Last Taken 11/23/20] nitrofurantoin monohyd/m-cryst 100 mg PO BID 11/22/20 [History Last Taken 11/23/20] glipizide 5 mg PO DAILY PRN PRN 11/23/20 [History Last Taken 11/23/20] prednisone 60 mg PO DAILY #12 tab 11/23/20 [Rx Last Taken 11/23/20] promethazine 25 mg PO Q6H PRN PRN 11/23/20 [History Last Taken Unknown] Allergy/AdvReac Type Severity Reaction Status Date / Time Penicillins Allergy Hives Verified 11/23/20 17:11 azithromycin [From Zithromax] AdvReac Vomiting Verified 11/23/20 17:11 latex AdvReac Rash Verified 11/23/20 17:11 minocycline [Minocycline] AdvReac Other Verified 11/23/20 17:11 NSAIDS (Non-Steroidal AdvReac Bleeding Verified 11/23/20 17:11 Anti-Inflamma tramadol AdvReac Shortness Verified 11/23/20 17:11 of breath Family History Mother Diabetes Surgical History H/O: hysterectomy History of cholecystectomy Social History Smoking Status: Never smoker Results Lab / Micro Data Result Diagrams: 11/23/20 17:27 11/23/20 17:27 Charges/Coding Addendum Addendum: I independently evaluated this patient and agree with above assessment and plan.
--- NOTE | 2020-11-23 20:11 | EKG12_ITS ---
Test Reason : CP ADMISSION Blood Pressure : / mmHG Vent. Rate : 107 BPM Atrial Rate : 107 BPM P-R Int : 170 ms QRS Dur : 086 ms QT Int : 338 ms P-R-T Axes : 047 071 055 degrees QTc Int : 451 ms Sinus tachycardia Otherwise normal ECG When compared with ECG of 23-NOV-2020 17:19, MANUAL COMPARISON REQUIRED, DATA IS UNCONFIRMED Confirmed by ALETHEA ARAYA, MASOUD ([id number]), medical transcription editor JAMIA ULLOA ([id number]) on 11/25/2020 7:57:37 AM Referred By: [facility]I Confirmed By:MASOUD CLAIRE MD
[2020-11-23] MEDS: Nitroglycerin (INPATIENT USE) 0.4 MG TAB.SUBL SL (20:32)
[2020-11-23] MEDS: 0.9% Normal Saline 1,000 ML 100 ML IV (20:34)
[2020-11-23] MEDS: proCHLORPERazine 10 MG/2 ML Vial 5 MG IV (20:34)
[2020-11-23] MEDS: Atorvastatin Calcium 20 MG Tablet PO (21:28)
[2020-11-23] MEDS: Amitriptyline 10 MG Tablet PO (21:28)
[2020-11-23] MEDS: ALPRAZolam 0.5 MG Tablet 1 MG PO (21:30)
[2020-11-23 21:41] LABS: Bedside Glucose 118 mg/dL (70-110)
[2020-11-24] VITALS (7 sets, daily range): BP systolic 95–103; BP diastolic 54–62; PULSE 85–95; RESP 18; TEMP 35.9–36.2; O2SAT 94–96
[2020-11-24] MEDS: 0.9% Saline Lock 10 ML Syringe IV (03:57)
[2020-11-24] MEDS: proCHLORPERazine 10 MG/2 ML Vial 5 MG IV (03:58)
[2020-11-24] MEDS: Aspirin 325 MG Tablet PO (04:36)
--- NOTE | 2020-11-24 05:00 | EKG12_ITS ---
Test Reason : CP/AM EKG Blood Pressure : / mmHG Vent. Rate : 091 BPM Atrial Rate : 091 BPM P-R Int : 174 ms QRS Dur : 086 ms QT Int : 360 ms P-R-T Axes : 042 054 044 degrees QTc Int : 442 ms Normal sinus rhythm Normal ECG When compared with ECG of 23-NOV-2020 20:08, MANUAL COMPARISON REQUIRED, DATA IS UNCONFIRMED Confirmed by ALETHEA ARAYA, MASOUD ([id number]), book or script editor JAMIA ULLOA ([id number]) on 11/25/2020 7:57:07 AM Referred By: [facility]I Confirmed By:MASOUD CLAIRE MD
[2020-11-24] MEDS: 0.9% Normal Saline 1,000 ML 100 ML IV (06:16)
[2020-11-24 06:27] LABS: Hemoglobin 11.2 g/dL (12.0-15.0); Mean Corp Hgb Conc 33.9 g/dL (32-36); Mean Corpuscular Hgb 31.5 pg (27.0-32.0); Mean Platelet Vol. 11.1 fl (6.2-12.0); Platelet Count 177 K/mm3 (150-450); RBC Distribution Width CV 12.4 % (11.6-14.6); RBC Distribution Width SD 42.5 fl (35.1-43.9); Red Blood Count 3.55 M/mm3 (4.2-5.4); White Blood Count 9.5 K/mm3 (4.4-11.0)
[2020-11-24 06:41] LABS: Bedside Glucose 150 mg/dL (70-110)
[2020-11-24 07:02] LABS: ALB/GLOB Ratio 0.9 RATIO (0.9-2.4); AST(SGOT) 33 U/L (15-37); Alanine Aminotransfer ALT/SGPT 66 U/L (13-56); Albumin, Serum 2.8 g/dL (3.2-5.0); Alkaline Phosphatase 86 U/L (45-117); Anion Gap 6 (5-15); BUN 16 mg/dL (7-18); BUN/Creat Ratio 21.8 RATIO (10-20); Calcium,Total 7.9 mg/dL (8.5-10.1); Chloride 109 mmol/L (98-107); Creatinine, Serum 0.74 mg/dL (0.55-1.02); EST Glomerular Filtration Rate 96 mL/min (>60); Est Glom Filt Rate - Afr Amer 116 mL/min (>60); Estimated Creatinine Clearance 76.94 ml/min; Globulin 3.1 g/dL (2.2-4.2); Glucose 138 mg/dL (74-106); Potassium 3.8 mmol/L (3.5-5.1); Protein, Total 5.9 g/dL (6.4-8.2); Sodium Level 141 mmol/L (136-145); Thyroid Stim Hormone (TSH) 1.02 uIU/mL (0.358-3.74)
[2020-11-24] MEDS: predniSONE 20 MG Tablet 60 MG PO (10:26)
[2020-11-24] MEDS: Nitrofurantoin Macrocrystals 100 MG Capsule PO (10:27)
[2020-11-24] MEDS: Acetaminophen 325 MG Tablet 650 MG PO (10:29)
[2020-11-24] MEDS: Furosemide 40 MG Tablet PO (10:29)
[2020-11-24] MEDS: metFORMIN (XR) 500 MG Tablet PO (10:29)
[2020-11-24 11:02] LABS: Cholesterol 142 mg/dL (200); High Density Lipoprotein 53 mg/dL; Triglycerides 171 mg/dL; Very Low Density Lipoprotein 34 mg/dL (5-40)
[2020-11-24 11:41] LABS: Bedside Glucose 132 mg/dL (70-110)
--- NOTE | 2020-11-24 12:27 | PCM.DC ---
Discharge Instructions Diet Discharge Diet: Low fat / Low cholesterol and 2000 mg Sodium Diet Activity Discharge Activity: Return to Normal Activity May resume sexual activity in: No Restrictions Weight Bearing Status: Weight bearing as tolerated Follow Up Care Test Results: Test results from this visit will be discussed in further detail at your follow-up appointment, if applicable. Discharge Plan Admission Admit Date/Time: 11/23/20 19:46 Primary Reason for Your Visit: Atypical chest pain, ACS ruled out Attending Provider: Vic Steward Primary Care Provider: Gwen Verdin Instructions Patient Instructions: ED Chest Pain, Noncardiac Discharge Orders/Prescriptions Prescriptions: New atorvastatin 40 mg tablet 40 mg PO DAILY Qty: 30 RF: 2 Continued alprazolam [Xanax] 1 MG tablet 1 mg PO TID PRN PRN (Reason: Anxiety) RF: 0 furosemide 40 MG tablet 40 mg PO DAILY RF: 0 hydrochlorothiazide 25 MG tablet 25 tab PO DAILY RF: 0 amitriptyline 10 mg tablet 10 mg PO QHS RF: 0 metformin 500 mg tablet extended release 24hr 500 mg PO BID RF: 0 promethazine 25 mg tablet 25 mg PO Q6H PRN PRN (Reason: Nausea) RF: 0 glipizide 5 mg tablet 5 mg PO DAILY PRN PRN (Reason: blood sugars >250) RF: 0 Discontinued atorvastatin 10 mg tablet 20 mg PO QHS RF: 0 nitrofurantoin monohyd/m-cryst 100 mg capsule 100 mg PO BID RF: 0 prednisone 20 mg tablet 60 mg PO DAILY Qty: 12 RF: 0 Referrals / Follow Up: Gwen Verdin MD [Primary Care Provider] - Within 2 Weeks Disposition Disposition (needs filled in before D/C Order can be placed): Home, self care
--- NOTE | 2020-11-24 12:40 | DS.PCM_ITS ---
Providers Date of Admission: 11/23/20 Date of Discharge: 11/24/20 Primary Care Physician: Dr. Gwen Verdin MD Reason For Visit: ATYPICAL CHEST PAINI Diagnosis Discharge Diagnosis (1) Atypical chest pain: Status: Acute Code(s): R07.89 - Other chest pain Medications at Discharge Home Medications alprazolam [Xanax] 1 mg PO TID PRN PRN 11/24/17 furosemide 40 mg PO DAILY 06/11/19 hydrochlorothiazide 25 tab PO DAILY 06/11/19 amitriptyline 10 mg PO QHS 11/22/20 metformin 500 mg PO BID 11/22/20 glipizide 5 mg PO DAILY PRN PRN 11/23/20 promethazine 25 mg PO Q6H PRN PRN 11/23/20 atorvastatin 40 mg PO DAILY #30 tab 11/24/20 Hospital Course Summary of Care Provided Hospital Course: This 35-year-old female was admitted through ER for left inframammary pain about fifth and sixth intercostal rib. Pain was reproducible with palpation. Patient has morbid obesity with history of lisseth betes mellitus type 2, DVT. Patient was admitted to PCU and serial troponins were negative. Chest CTA negative reported normal. cafeteria monitor shows sinus rhythm with mild tachycardia 100- 102 bpm. Patient is chest pain-free. Patient had exercise myocardial nuclear perfusion stress test which did not show areas of ischemia or previous infarct. TSH normal. LDL and HDL normal but triglyceride 171. Patient on atorvastatin 20 mg daily and increased to 40 mg daily. Patient's home medication shows nitrofurantoin which she had for about 1 week therefore discontinued. Patient also on prednisone which has been given for chest pain in ER which also discontinued Discharge medication reconciliation done. Discharge follow-up instructions completed. Discharge process discussed with the patient and all questions were answered to patient's satisfaction. Total time spent, exact 35 minutes on discharge meds reconciliation, examination, coordination of care with nurses and ancillary staff, review of imaging and blood test and discussion with the patient on follow-up instructions Physical Exam Narrative Seen and examined Patient complain of mild chest tightness under her left breast, localized with no associated shortness of breath, dizzy feeling. She felt palpitation but no passing out. She denies prior history of angina, coronary artery disease, PCI or stent. Her mother had A. fib and elderly. cafeteria monitor shows sinus tachycardia at 100- 102 bpm. Physical exam General: Alert, Oriented x3, Cooperative, BMI 34.6 kg/m?, obesity grade 1 HEENT: Atraumatic, PERRLA, EOMI, Normocephalic Oral: No Gingival or Mucosal Lesions/ Ulcerations Neck: Supple, No JVD, Negative Carotid Bruits Lungs: Air entry equal in bilateral lung bases. No crepitation/rhonchi Cardiovascular: Regular rate, Regular Rhythm, Normal S1, Normal S2, No murmurs Abdomen: Bowel Sounds Present, Soft, Non Tender, Non-Distended : No renal angle tenderness. No suprapubic tenderness. Extremities: No edema, Capillary Refill Less than 3 Seconds Skin: No rashes, No breakdown Musculoskeletal: No Tenderness to Palpation of Joints or Extremities Neurological: Cranial nerves II-XII grossly intact, Deep Tendon Reflexes 2+/4 an d Symmetrical, Neuro grossly intact Psych/Mental Status: Normal Affect, Appropriate. Weight / BMI Weight Weight: 177 lb 4.026 oz Body Mass Index (BMI) 34.6 ABG / Lab / Microbiology Data Result Diagrams: 11/24/20 06:00 11/24/20 06:00 Laboratory: Laboratory Results - last 24 hr 11/23/20 11/23/20 11/23/20 17:27 17:27 18:10 WBC 15.4 H RBC 4.14 L Hgb 13.1 Hct 37.4 MCV 90.3 MCH 31.6 MCHC 35.0 RDW Std Deviation 39.0 RDW Coeff of Louis 11.9 Plt Count 218 MPV 11.2 Immature Gran % (Auto) 0.600 Neut % (Auto) 82.8 H Lymph % (Auto) 12.5 L Morris % (Auto) 4.0 Eos % (Auto) 0.0 Baso % (Auto) 0.1 Absolute Neuts (auto) 12.8 H Absolute Lymphs (auto) 1.92 Nucleated RBC % 0 Sodium 138 Potassium 4.1 Chloride 101 Carbon Dioxide 26.0 Anion Gap 11 BUN 13 Creatinine 0.98 Estim Creat Clear Calc 58.10 Est GFR (MDRD) Af Amer 83 Est GFR (MDRD) Non-Af 69 BUN/Creatinine Ratio 13.2 Glucose 190 H Calcium 9.2 Total Bilirubin 0.30 AST 59 H ALT 90 H Alkaline Phosphatase 112 Troponin I < 0.015 Total Protein 7.6 Albumin 3.5 Globulin 4.1 Albumin/Globulin Ratio 0.9 Triglycerides Cholesterol LDL Cholesterol VLDL Cholesterol HDL Cholesterol Lipase 198 TSH 1.09 Urine Color Yellow Urine Clarity Sl. Cloudy Urine pH 7.0 Ur Specific [place] 1.005 Urine Protein Negative Urine Glucose (UA) Normal Urine Ketones 5 H Urine Occult Blood Negative Urine Nitrite Negative Urine Bilirubin Negative Urine Urobilinogen Normal Ur Leukocyte Esterase Negative Urine RBC 0 SEEN Urine WBC 0 SEEN Ur Squamous Epith Cells 0-5 SEEN Urine Bacteria 0 SEEN Urine Mucus 0 SEEN POC Glucose 11/23/20 11/23/20 11/23/20 20:50 21:27 23:04 WBC RBC Hgb Hct MCV MCH MCHC RDW Std Deviation RDW Coeff of [place] Plt Count MPV Immature Gran % (Auto) Neut % (Auto) Lymph % (Auto) [place] % (Auto) Eos % (Auto) Baso % (Auto) Absolute Neuts (auto) Absolute Lymphs (auto) Nucleated RBC % Sodium Potassium Chloride Carbon Dioxide Anion Gap BUN Creatinine Estim Creat Clear Calc Est GFR (MDRD) Af Amer Est GFR (MDRD) Non-Af BUN/Creatinine Ratio Glucose Calcium Total Bilirubin AST ALT Alkaline Phosphatase Troponin I < 0.015 < 0.015 Total Protein Albumin Globulin Albumin/Globulin Ratio Triglycerides Cholesterol LDL Cholesterol VLDL Cholesterol HDL Cholesterol Lipase TSH Urine Color Urine Clarity Urine pH Ur Specific [place] Urine Protein Urine Glucose (UA) Urine Ketones Urine Occult Blood Urine Nitrite Urine Bilirubin Urine Urobilinogen Ur Leukocyte Esterase Urine RBC Urine WBC Ur Squamous Epith Cells Urine Bacteria Urine Mucus POC Glucose 118 H 11/24/20 11/24/20 11/24/20 06:00 06:00 06:00 WBC 9.5 RBC 3.55 L Hgb 11.2 L Hct 33.0 L MCV 93.0 MCH 31.5 MCHC 33.9 RDW Std Deviation 42.5 RDW Coeff of Louis 12.4 Plt Count 177 MPV 11.1 Immature Gran % (Auto) Neut % (Auto) Lymph % (Auto) Morris % (Auto) Eos % (Auto) Baso % (Auto) Absolute Neuts (auto) Absolute Lymphs (auto) Nucleated RBC % Sodium 141 Potassium 3.8 Chloride 109 H Carbon Dioxide 26.0 Anion Gap 6 BUN 16 Creatinine 0.74 Estim Creat Clear Calc 76.94 Est GFR (MDRD) Af Amer 116 Est GFR (MDRD) Non-Af 96 BUN/Creatinine Ratio 21.8 H Glucose 138 H Calcium 7.9 L Total Bilirubin 0.30 AST 33 ALT 66 H Alkaline Phosphatase 86 Troponin I Total Protein 5.9 L Albumin 2.8 L Globulin 3.1 Albumin/Globulin Ratio 0.9 Triglycerides 171 Cholesterol 142 LDL Cholesterol 55 VLDL Cholesterol 34 HDL Cholesterol 53 Lipase TSH 1.02 Urine Color Urine Clarity Urine pH Ur Specific [place] Urine Protein Urine Glucose (UA) Urine Ketones Urine Occult Blood Urine Nitrite Urine Bilirubin Urine Urobilinogen Ur Leukocyte Esterase Urine RBC Urine WBC Ur Squamous Epith Cells Urine Bacteria Urine Mucus POC Glucose 11/24/20 11/24/20 06:29 11:31 WBC RBC Hgb Hct MCV MCH MCHC RDW Std Deviation RDW Coeff of Louis Plt Count MPV Immature Gran % (Auto) Neut % (Auto) Lymph % (Auto) Morris % (Auto) Eos % (Auto) Baso % (Auto) Absolute Neuts (auto) Absolute Lymphs (auto) Nucleated RBC % Sodium Potassium Chloride Carbon Dioxide Anion Gap BUN Creatinine Estim Creat Clear Calc Est GFR (MDRD) Af Amer Est GFR (MDRD) Non-Af BUN/Creatinine Ratio Glucose Calcium Total Bilirubin AST ALT Alkaline Phosphatase Troponin I Total Protein Albumin Globulin Albumin/Globulin Ratio Triglycerides Cholesterol LDL Cholesterol VLDL Cholesterol HDL Cholesterol Lipase TSH Urine Color Urine Clarity Urine pH Ur Specific [place] Urine Protein Urine Glucose (UA) Urine Ketones Urine Occult Blood Urine Nitrite Urine Bilirubin Urine Urobilinogen Ur Leukocyte Esterase Urine RBC Urine WBC Ur Squamous Epith Cells Urine Bacteria Urine Mucus POC Glucose 150 H 132 H Radiography Diagnostic Testing: Radiology Impression Chest X-Ray 11/23/20 17:55 IMPRESSION: Normal x-ray examination of the chest. Electronically Signed: Wilberto Gray MD at 18:27 EDT , Service support , D/C Instructions Discharge Diet: Low fat / Low cholesterol and 2000 mg Sodium Diet May resume sexual activity in: No Restrictions Weight Bearing Status: Weight bearing as tolerated Meaningful Use Info Meaningful Use Diagnoses (Choose all that apply): None applicable Discharge Plan Admission Admit Date/Time: 11/23/20 19:46 Primary Reason for Your Visit: Atypical chest pain, ACS ruled out Attending Provider: Vic Steward Primary Care Provider: Gwen Verdin Instructions Patient Instructions: ED Chest Pain, Noncardiac Discharge Orders/Prescriptions Prescriptions: New atorvastatin 40 mg tablet 40 mg PO DAILY Qty: 30 RF: 2 Continued alprazolam [Xanax] 1 MG tablet 1 mg PO TID PRN PRN (Reason: Anxiety) RF: 0 furosemide 40 MG tablet 40 mg PO DAILY RF: 0 hydrochlorothiazide 25 MG tablet 25 tab PO DAILY RF: 0 amitriptyline 10 mg tablet 10 mg PO QHS RF: 0 metformin 500 mg tablet extended release 24hr 500 mg PO BID RF: 0 promethazine 25 mg tablet 25 mg PO Q6H PRN PRN (Reason: Nausea) RF: 0 glipizide 5 mg tablet 5 mg PO DAILY PRN PRN (Reason: blood sugars >250) RF: 0 Discontinued atorvastatin 10 mg tablet 20 mg PO QHS RF: 0 nitrofurantoin monohyd/m-cryst 100 mg capsule 100 mg PO BID RF: 0 prednisone 20 mg tablet 60 mg PO DAILY Qty: 12 RF: 0 Referrals / Follow Up: Gwen Verdin MD [Primary Care Provider] - Within 2 Weeks Disposition Disposition (needs filled in before D/C Order can be placed): Home, self care Charges/Coding Visit Charges OBSV E&M: 81449 Observation care discharge
--- NOTE | 2020-11-24 13:19 | STRESSREP ---
Stress Test Report Exercise myocardial perfusion stress test. 35-year-old lady with a history of chest pain. Stress protocol: Resting EKG demonstrates normal sinus rhythm with a rate of 82 bpm normal intervals are noted. The patient exercised according to the regular [place] protocol for total duration of 7 minutes and 10 seconds. The maximum heart rate attained was 164 bpm which was 88% of max infected heart rate the maximum workload was 8.6 metabolic equivalents. At rest there were no ST or T wave changes noted to suggest ischemia. At peak exercise upsloping ST changes were noted with did not meet the criteria for ischemia. No clinical angina was noted the test was terminated due to fatigue. The peak blood pressure was 130/64 mmHg. Myocardial perfusion protocol. 11.5 mCi of technetium 99m sestamibi was injected at rest. The patient exercised according to regular [place] protocol for total duration of 7 minutes and 10 seconds. At peak exercise 34.4 mCi of technetium 99m sestamibi was injected stress images were obtained stress and rest images were reconstructed and compared in the short axis vertical long and horizontal long axis. Gated images were also obtained. Perfusion SPECT analysis: Review of the stress images demonstrate normal uptake of tracer noted in all areas of the myocardium. The resting images similarly demonstrate normal uptake of tracer noted in all areas of the myocardium. No areas of reversibility are noted to suggest ischemia and no previous infarct is noted. Gated SPECT analysis: The gated ejection fraction is noted to be 86%. Conclusion: Normal exercise myocardial perfusion stress test at a high workload. Preserved ejection fraction. No arrhythmias noted.
== END 2020-11-24 12:39 | disposition home or self-care (01) ==
LOC: ED 17:56 → PCU 20:00
PROVIDERS: Nurse Practitioner Family; Admitting Provider Family Medicine; Emergency Provider Emergency Medicine; PCP Internal Medicine; Visit Provider Internal Medicine
DX: R07.89 Other chest pain (principal); J45.909 Unspecified asthma, uncomplicated; I10 Essential (primary) hypertension; E11.9 Type 2 diabetes mellitus without complications; Z86.718 Personal history of other venous thrombosis and embolism; F41.9 Anxiety disorder, unspecified; F32.9 Major depressive disorder, single episode, unspecified; Z79.899 Other long term (current) drug therapy; Z79.84 Long term (current) use of oral hypoglycemic drugs; Z79.52 Long term (current) use of systemic steroids
CPT/HCPCS: 36415; 71046; 78452; 80053; 80061; 81001; 82962; 83690; 84443; 84484; 85025; 85027; 93005; 93017; 96361; 96374; 96375; 96376; 99218; 99285; A9500; J7030; A4216; G0378; J2405

== ENCOUNTER 2020-12-26 15:24 | Emergency (ER) | payer MEDICAID, SELFPAY ==
[2020-11-23 19:54] VITALS: BMI 34.6
[2020-12-26 15:25] VITALS: BP 141/78; PULSE 128; RESP 16; TEMP 36.4; O2SAT 98; BMI 31.2
[2020-12-26 15:59] LABS: Bacteria 0 SEEN /hpf (None Seen); Mucous, Urine 0 SEEN /hpf (<or=2+); Red Blood Cells-Urine 0 SEEN /hpf (0-5); Squamous Epithelial Cells - UA 0 SEEN /hpf (5-10)
[2020-12-26 16:06] LABS: Color, Urine Straw (Yellow); Glucose, Dipstick 1000 mg/dl (Normal); Ketone-Dipstick Negative (Negative); Leukocyte Esterase-Dipstick 100 /ul (Negative); Nitrite-Dipstick Negative (Negative); Occult Blood-Urine Negative /ul (Negative); Protein-Dipstick Negative (Negative); Specific Gravity, Urine 1.005 (1.002-1.030); Urine Bilirubin Dipstick Negative (Negative); Urine Clarity Clear (Clear); Urine Urobilinogen Normal (Normal)
--- NOTE | 2020-12-26 16:09 | CT_ITS ---
STUDY: CT ABDOMEN AND PELVIS WITHOUT CONTRAST REASON FOR EXAM: Female, 35 years old. Abdominal pain RADIATION DOSAGE (If Supplied By Facility): CTDIvol = ( 11.74 ) mGy, DLP = ( 604.33 ) mGycm TECHNIQUE: Transaxial images were obtained from the dome of the diaphragm to the symphysis pubis without oral contrast, and without intravenous contrast. Sagittal and coronal images were reconstructed. Individualized dose optimization techniques were used for this CT. COMPARISON: 23 January 2019 FINDINGS: There are ill-defined nodular groundglass peripheral subpleural small opacities. Liver is moderately enlarged without lesions on noncontrast images. Gallbladder is removed. There is no biliary dilation. Normal spleen. Normal pancreas. Normal bilateral adrenal glands. Normal right kidney. Normal left kidney. There are small, less than 3 mm, right renal calyceal nonobstructing calculi. There are no ureteral calculi. There is no intestinal obstruction. Colon contains dehydrated stool, a finding that can be seen with but not diagnostic of constipation. Appendix is normal. Normal abdominal aorta. Normal inferior vena cava. Normal retroperitoneum. Normal urinary bladder. Uterus is removed. Normal abdominal wall. Normal osseous structures. CT/Abdomen/Pelvis without Cont IMPRESSION: 1. No acute abdominal disease. 2. Stable small nonobstructing right renal calyceal stones. 3. Hepatomegaly. Electronically Signed: Dontae Simmons MD at 17:47 EDT Tel , Service support ,
--- NOTE | 2020-12-26 16:10 | EDS_ITS ---
HPI History of Present Illness Chief Complaint: Abn Labs Narrative Narrative: 35-year-old female presenting with hyperglycemia, nausea and vomiting, headache. She states she has been very thirsty. She has a history of type 2 diabetes and is on Metformin 500 mg p.o. twice daily as well as glipizide 5 mg p.o. daily. Patient states that her blood sugars have been high only for the last 2 days that she knows of. She states that she went to urgent care yesterday and they recommended that she come to the ED. She states they did check a urinalysis which was negative except for excessive glucose. Patient is complaining of dysuria and suprapubic pain. She does have a history of kidney stones in the past distantly. Patient does deny fever or chills. [facility] Medical History Anxiety Asthma Chest pain Depression Diabetes DVT (deep venous thrombosis) Kidney stones Knee arthropathy Migraines Home Medications alprazolam [Xanax] 1 mg PO TID PRN PRN 11/24/17 [History Last Taken 11/23/20] furosemide 40 mg PO DAILY PRN 06/11/19 [History Last Taken 11/23/20] hydrochlorothiazide 25 tab PO DAILY 06/11/19 [History Last Taken 11/23/20] amitriptyline 10 mg PO QHS 11/22/20 [History Last Taken 11/22/20] metformin 500 mg PO BID 11/22/20 [History Last Taken 11/23/20] glipizide 5 mg PO DAILY PRN PRN 11/23/20 [History Last Taken 11/23/20] promethazine 25 mg PO Q6H PRN PRN 11/23/20 [History Last Taken Unknown] atorvastatin 40 mg PO QHS 12/26/20 [History Last Taken Unknown] oxycodone 5 mg PO Q6H PRN PRN 12/26/20 [History Last Taken Unknown] Allergy/AdvReac Type Severity Reaction Status Date / Time Penicillins Allergy Hives Verified 12/26/20 15:28 azithromycin [From Zithromax] AdvReac Vomiting Verified 12/26/20 15:28 latex AdvReac Rash Verified 12/26/20 15:28 minocycline [Minocycline] AdvReac Other Verified 12/26/20 15:28 NSAIDS (Non-Steroidal AdvReac Bleeding Verified 12/26/20 15:28 Anti-Inflamma tramadol AdvReac Shortness Verified 12/26/20 15:28 of breath Family History Mother Diabetes Surgical History H/O: hysterectomy History of cholecystectomy Social History Smoking Status: Never smoker ROS ROS ED Constitutional Constitutional ED: Denies chills or fever(s) Eyes Eyes: Denies blurry vision or diplopia ENT ENT ED: Denies rhinorrhea or sore throat Cardiovascular Cardiovascular: Denies chest pain, palpitations or racing heartbeat Respiratory/Chest Respiratory/Chest: Denies cough, dyspnea or sputum Gastrointestinal Gastrointestinal: Reports abdominal pain, nausea and vomiting Genitourinary Genitourinary ED: Reports dysuria and urinary frequency Musculoskeletal Musculoskeletal: Denies arthralgias or myalgias Integumentary Denies abscess or rash Neurologic Neurologic: Reports headache(s); Denies paresthesias Endocrine Endocrinology: Reports polydipsia and polyuria EXAM Physical Exam Const Vital Signs: 12/26/20 15:25 12/26/20 16:24 12/26/20 18:28 Temperature 97.6 F L Temperature Source Temporal Pulse Rate 128 H 101 H Respiratory Rate 16 19 H Respiratory Effort Normal Non-Labored Respiratory Pattern Normal Blood Pressure 141/78 H 119/74 Blood Pressure Mean 99 89 Pulse Ox 98 95 Oxygen Delivery Method Room Air Room Air 12/26/20 19:14 12/26/20 20:14 Temperature Temperature Source Pulse Rate 98 99 Respiratory Rate 25 H 17 Respiratory Effort Respiratory Pattern Blood Pressure 124/76 H 105/70 Blood Pressure Mean 92 81 Pulse Ox 97 99 Oxygen Delivery Method Room Air Room Air Positive obese General Appearance ED: NAD Nutritional Appearance: obese HEENT Reports dry mucous membranes Negative for trauma Mouth ED: Yes dry mucous membranes Mouth: dry mucous membranes Eyes PERRL and EOMs intact bilaterally Neck no lymphadenopathy and supple Chest Wall inspection of chest normal Resp normal respiratory effort and clear to auscultation bilaterally Cardio regular rhythm Rate: tachycardic GI GI Narrative: Mild suprapubic tenderness in the midline. Abdomen is nonperitoneal. No CVA tenderness. Back/Spine no CVA tenderness Extremity normal to inspection General Extremety ED: Negative for tenderness Neuro oriented x3 and CN's II-XII intact bilaterally Sensorium / Orientation: alert Psych mental status grossly normal Skin no rashes or lesions noted and no wounds MDM MDM MDM Narrative Medical decision making narrative: Patient presenting with hyperglycemia. She states he has polyuria and polydipsia as well. Her blood sugars have been in the 400s. This is a new issue for her as she is usually a well-controlled diabetic. She does take glipizide 5 mg as needed if her blood sugars are higher. In the ED she was treated with Reglan and Benadryl for her headache and nausea. She was given IV fluids. She felt much improved after this. Her CBC was normal. BMP shows a glucose of 419 without an anion gap. Urinalysis is negative for infection. CT abdomen pelvis is negative for acute findings. Patient's repeat blood sugar is down under 200. She feels improved enough to go home. I spoke with Dr. Verdin who recommended she start taking her glipizide 5 mg once daily and if her blood sugar is still elevated to take it twice daily. She will follow-up with her in office. Impression: 1. Headache 2. Hyperglycemia 3. Abdominal pain 4. Dysuria Lab Data Labs: Laboratory Results - last 24 hr 12/26/20 12/26/20 12/26/20 15:40 16:00 16:00 WBC 6.4 RBC 3.89 L Hgb 12.5 Hct 35.8 L MCV 92.0 MCH 32.1 H MCHC 34.9 RDW Std Deviation 41.1 RDW Coeff of Louis 12.2 Plt Count 184 MPV 11.4 Immature Gran % (Auto) 0.200 Neut % (Auto) 41.9 L Lymph % (Auto) 49.1 H [place] % (Auto) 6.6 Eos % (Auto) 1.6 Baso % (Auto) 0.6 Absolute Neuts (auto) 2.7 Absolute Lymphs (auto) 3.12 Nucleated RBC % 0 Sodium 132 L Potassium 3.6 Chloride 97 L Carbon Dioxide 27.0 Anion Gap 8 BUN 11 Creatinine 1.02 Estim Creat Clear Calc 55.82 Est GFR (MDRD) Af Amer 79 Est GFR (MDRD) Non-Af 66 BUN/Creatinine Ratio 10.8 Glucose 419 H Calcium 9.2 Magnesium 1.8 Urine Color Straw Urine Clarity Clear Urine pH 7.0 Ur Specific [place] 1.005 Urine Protein Negative Urine Glucose (UA) 1000 H Urine Ketones Negative Urine Occult Blood Negative Urine Nitrite Negative Urine Bilirubin Negative Urine Urobilinogen Normal Ur Leukocyte Esterase 100 H Urine RBC 0 SEEN Urine WBC 0-5 SEEN Ur Squamous Epith Cells 0 SEEN Urine Bacteria 0 SEEN Urine Mucus 0 SEEN Acetone Level POC Glucose 12/26/20 12/26/20 12/26/20 16:00 16:32 20:37 WBC RBC Hgb Hct MCV MCH MCHC RDW Std Deviation RDW Coeff of [place] Plt Count MPV Immature Gran % (Auto) Neut % (Auto) Lymph % (Auto) [place] % (Auto) Eos % (Auto) Baso % (Auto) Absolute Neuts (auto) Absolute Lymphs (auto) Nucleated RBC % Sodium Potassium Chloride Carbon Dioxide Anion Gap BUN Creatinine Estim Creat Clear Calc Est GFR (MDRD) Af Amer Est GFR (MDRD) Non-Af BUN/Creatinine Ratio Glucose Calcium Magnesium Urine Color Urine Clarity Urine pH Ur Specific [place] Urine Protein Urine Glucose (UA) Urine Ketones Urine Occult Blood Urine Nitrite Urine Bilirubin Urine Urobilinogen Ur Leukocyte Esterase Urine RBC Urine WBC Ur Squamous Epith Cells Urine Bacteria Urine Mucus [place] Level NEGATIVE POC Glucose 342 H 194 H Radiography Diagnostic Testing: Radiology Impression Abdomen/Pelvis CT 12/26/20 16:09 IMPRESSION: 1. No acute abdominal disease. 2. Stable small nonobstructing right renal calyceal stones. 3. Hepatomegaly. Electronically Signed: Dontae Simmons MD at 17:47 EDT Tel , Service support , Discharge Plan Triage Chief Complaint: Abn Labs ED Provider: Horacio Johnson Dx/Rx/DC Orders Instructions: ED Diabetic Hyperglycemia Prescriptions: No Action alprazolam [Xanax] 1 MG tablet 1 mg PO TID PRN PRN (Reason: Anxiety) RF: 0 furosemide 40 MG tablet 40 mg PO DAILY PRN (Reason: fluid retention) RF: 0 hydrochlorothiazide 25 MG tablet 25 tab PO DAILY RF: 0 amitriptyline 10 mg tablet 10 mg PO QHS RF: 0 metformin 500 mg tablet extended release 24hr 500 mg PO BID RF: 0 promethazine 25 mg tablet 25 mg PO Q6H PRN PRN (Reason: Nausea) RF: 0 glipizide 5 mg tablet 5 mg PO DAILY PRN PRN (Reason: blood sugars >250) RF: 0 oxycodone 5 mg capsule 5 mg PO Q6H PRN PRN (Reason: Pain) RF: 0 atorvastatin 40 mg tablet 40 mg PO QHS RF: 0 Primary Care Provider: Gwen Verdin Referrals: Gwen Verdin MD [Primary Care Provider] - Disposition Disposition: Home, Self Care Discharge Date/Time: 12/26/20 20:54
[2020-12-26 16:25] LABS: White Blood Cells 0-5 SEEN /hpf (0-5)
[2020-12-26 16:26] LABS: Absolute Lymphocyte Count 3.12 X10^3/uL (0.83-4.51); Absolute Neutrophil Count 2.7 X10^3/uL (2.0-7.7); Basophil# 0.04 X10^3/uL; Basophil% 0.6 % (0-1); Eosinophils% 1.6 % (0-5); Hematocrit 35.8 % (37-47); Hemoglobin 12.5 g/dL (12.0-15.0); Lymphocyte # 3.12 X10^3/ul (0.83-4.51); Lymphocyte % 49.1 % (19-41); Mean Corp Hgb Conc 34.9 g/dL (32-36); Mean Corpuscular Hgb 32.1 pg (27.0-32.0); Mean Platelet Vol. 11.4 fl (6.2-12.0); Monocyte# 0.42 X10^3/uL; Monocyte% 6.6 % (0-10); NRBC Flagged by Analyzer 0 % (0-5); Neutrophil # 2.66 X10^3/uL (2.7-7.7); Neutrophil % 41.9 % (47-70); Platelet Count 184 K/mm3 (150-450); RBC Distribution Width CV 12.2 % (11.6-14.6); RBC Distribution Width SD 41.1 fl (35.1-43.9); Red Blood Count 3.89 M/mm3 (4.2-5.4); White Blood Count 6.4 K/mm3 (4.4-11.0)
[2020-12-26 16:33] LABS: Anion Gap 8 (5-15); BUN 11 mg/dL (7-18); BUN/Creat Ratio 10.8 RATIO (10-20); Calcium,Total 9.2 mg/dL (8.5-10.1); Chloride 97 mmol/L (98-107); Creatinine, Serum 1.02 mg/dL (0.55-1.02); EST Glomerular Filtration Rate 66 mL/min (>60); Est Glom Filt Rate - Afr Amer 79 mL/min (>60); Estimated Creatinine Clearance 55.82 ml/min; Glucose 419 mg/dL (74-106); Magnesium 1.8 mg/dL (1.6-2.6); Potassium 3.6 mmol/L (3.5-5.1); Sodium Level 132 mmol/L (136-145)
[2020-12-26] MEDS: Metoclopramide 10 MG/2 ML Vial IV (16:38)
[2020-12-26] MEDS: DiphenhydrAMINE 50 MG/ML Syringe 25 MG IV (16:38)
[2020-12-26] MEDS: 0.9% Normal Saline 1,000 ML 999 ML IV (16:38)
[2020-12-26 16:46] LABS: Bedside Glucose 342 mg/dL (70-110)
[2020-12-26 18:28] VITALS: BP 119/74; PULSE 101; RESP 19; O2SAT 95
[2020-12-26 19:14] VITALS: BP 124/76; PULSE 98; RESP 25; O2SAT 97
[2020-12-26 20:14] VITALS: BP 105/70; PULSE 99; RESP 17; O2SAT 99
[2020-12-26 20:41] LABS: Bedside Glucose 194 mg/dL (70-110)
[2020-12-26 20:53] VITALS: BP 97/56; PULSE 98; RESP 16; O2SAT 100
== END 2020-12-26 20:54 | disposition home or self-care (01) ==
PROVIDERS: Emergency Provider Student in an Organized Health Care Education/Training Program; PCP Internal Medicine
DX: E11.65 Type 2 diabetes mellitus with hyperglycemia (principal); G43.909 Migraine, unspecified, not intractable, without status migrainosus; R10.9 Unspecified abdominal pain; R30.0 Dysuria; F32.9 Major depressive disorder, single episode, unspecified; F41.9 Anxiety disorder, unspecified; E66.9 Obesity, unspecified; Z79.84 Long term (current) use of oral hypoglycemic drugs; Z79.899 Other long term (current) drug therapy; Z87.442 Personal history of urinary calculi
CPT/HCPCS: 74176; 80048; 81001; 82009; 82962; 83735; 85025; 96361; 96374; 96375; 99285; J7030; A4216

== ENCOUNTER 2021-01-19 00:25 | Emergency (ER) | payer MEDICAID, SELFPAY ==
[2021-01-19 00:25] VITALS: BP 122/90; PULSE 128; RESP 20; TEMP 37.1; O2SAT 97; BMI 38.0
[2021-01-19 00:33] VITALS: BP 122/90; PULSE 128; RESP 20; TEMP 37.1; O2SAT 97
--- NOTE | 2021-01-19 00:58 | EDS_ITS ---
HPI History of Present Illness Chief Complaint: Dental Informant: patient Onset/Context/Timing Onset: Today Current Severity: Mild Maximum Severity: Mild Associated Symptoms Assocated Symptom - Dental: cold sensitivity; Negative for fever, jaw swelling or face swelling Narrative Narrative: 35-year-old diabetic female fractured or lower tooth 2 weeks ago. Started having pain today. Took a home Percocet for the pain. She is concerned she may need an antibiotic. Prior similar symptoms: No Recent Illness/Hospitalization: No PFSH PFSH Medical History Anxiety Asthma Chest pain Depression Diabetes DVT (deep venous thrombosis) Kidney stones Knee arthropathy Migraines Home Medications alprazolam [Xanax] 1 mg PO DAILY PRN PRN 11/24/17 [History Last Taken 11/23/20] furosemide 40 mg PO DAILY PRN 06/11/19 [History Last Taken 11/23/20] hydrochlorothiazide 25 tab PO DAILY 06/11/19 [History Last Taken 11/23/20] amitriptyline 35 mg PO QHS 11/22/20 [History Last Taken 11/22/20] metformin 500 mg PO BID 11/22/20 [History Last Taken 11/23/20] glipizide 10 mg PO BID 11/23/20 [History Last Taken 11/23/20] promethazine 25 mg PO Q6H PRN PRN 11/23/20 [History Last Taken Unknown] atorvastatin 40 mg PO QHS 12/26/20 [History Last Taken Unknown] oxycodone 5 mg PO Q6H PRN PRN 12/26/20 [History Last Taken Unknown] clindamycin HCl 150 mg PO Q6H 7 Days #28 cap 01/19/21 [Rx Last Taken Unknown] insulin glargine [Lantus Solostar U-100 Insulin] 22 unit SUBCUT QPM 01/19/21 [Hi story Last Taken Unknown] verapamil 120 mg PO QHS 01/19/21 [History Last Taken Unknown] Allergy/AdvReac Type Severity Reaction Status Date / Time Penicillins Allergy Hives Verified 01/19/21 00:29 azithromycin [From Zithromax] AdvReac Vomiting Verified 01/19/21 00:29 latex AdvReac Rash Verified 01/19/21 00:29 minocycline [Minocycline] AdvReac Other Verified 01/19/21 00:29 NSAIDS (Non-Steroidal AdvReac Bleeding Verified 01/19/21 00:29 Anti-Inflamma tramadol AdvReac Shortness Verified 01/19/21 00:29 of breath Family History Mother Diabetes Surgical History H/O: hysterectomy History of cholecystectomy Social History Smoking Status: Never smoker ROS ROS ED ROS Narrative Denies recent illness. Review of Systems ROS Unobtainable: Denies due to encephalopathy Constitutional Constitutional ED: Denies fever(s) Eyes Eyes: Denies change in vision ENT ENT ED: Denies ear pain or sore throat Cardiovascular Cardiovascular: Denies chest pain Respiratory/Chest Respiratory/Chest: Denies cough or dyspnea Gastrointestinal Gastrointestinal: Denies abdominal pain, diarrhea, nausea or vomiting Genitourinary Genitourinary ED: Denies dysuria Musculoskeletal Musculoskeletal: Denies myalgias Integumentary Denies rash Neurologic Neurologic: Denies headache(s) Psychiatric Psychiatric: Denies depression Endocrine Endocrinology: Denies polyuria Hematologic/Lymphatic Hematologic/Lymphatic: Denies easy bruising Allergic/Immunologic Allergic/Immunologic ED: Denies urticaria EXAM Physical Exam Narrative Exam Narrative: 35-year-old female no acute distress. Vital signs stable afebrile. Temperature 98.7. H EENT exam poor dentition. Lower jaw right mid front tooth is basically fractured down to the gumline. There is no significant gingival swelling. There is no abscess. She can open and close her jaw without difficulty. Neck nontender no lymphadenopathy. Lungs clear to auscultation. Heart regular rhythm rate about 110 no murmur. Abdomen soft nontender. Moving all 4 extremities. No edema. Neurologically awake and alert. Const Vital Signs: 01/19/21 00:25 01/19/21 00:33 Temperature 98.7 F 98.7 F Temperature Source Oral Oral Pulse Rate 128 H 128 H Respiratory Rate 20 H 20 H Blood Pressure 122/90 H 122/90 H Blood Pressure Mean 100 100 Pulse Ox 97 97 Oxygen Delivery Method Room Air Room Air Positive well nourished and well developed General Appearance ED: well developed and NAD HEENT HEENT Narrative: Right lower jaw front tooth fractured to the gumline. No bleeding. No acute infection. Able to open close her mouth. No facial or jaw swelling. Negative for trauma Mouth ED: Yes lips normal and Yes tongue normal Mouth: lips normal and tongue normal Neck no lymphadenopathy, supple and no JVD General: normal visual inspection; Negative for anterior neck swelling or tenderness Lymph Lymphatic: no lymphadenopathy noted Chest Wall inspection of chest normal and palpation of chest normal Resp normal respiratory effort, no retractions and clear to auscultation bilaterally Cardio regular rhythm and no murmurs Rate: tachycardic GI normal to inspection, nondistended, normoactive bowel sounds, non-tender, non- distended and no masses Palpation: soft Neuro oriented x3 Sensorium / Orientation: alert, oriented to person, oriented to place and oriented to time Psych mental status grossly normal Skin no rashes or lesions noted MDM MDM MDM Narrative Medical decision making narrative: Patient has a chipped lower jaw front tooth. She will follow up with a dentist. She requested an antibiotic I explained to is not currently infected I will write her a prescription but explained to her that only to start this if she gets significant swelling of the gum. Otherwise she is Motrin she has home Percocet for pain. Discharge Plan Triage Chief Complaint: Dental ED Provider: Yayo Toledo Dx/Rx/DC Orders Clinical Impression: Fractured tooth Instructions: ED Dental Pain, ED Dental Trauma Prescriptions: New clindamycin HCl 150 mg capsule 150 mg PO Q6H 7 Days Qty: 28 RF: 0 No Action alprazolam [Xanax] 1 MG tablet 1 mg PO DAILY PRN PRN (Reason: Anxiety) RF: 0 furosemide 40 MG tablet 40 mg PO DAILY PRN (Reason: fluid retention) RF: 0 hydrochlorothiazide 25 MG tablet 25 tab PO DAILY RF: 0 amitriptyline 10 mg tablet 35 mg PO QHS RF: 0 metformin 500 mg tablet extended release 24hr 500 mg PO BID RF: 0 promethazine 25 mg tablet 25 mg PO Q6H PRN PRN (Reason: Nausea) RF: 0 glipizide 5 mg tablet 10 mg PO BID RF: 0 oxycodone 5 mg capsule 5 mg PO Q6H PRN PRN (Reason: Pain) RF: 0 atorvastatin 40 mg tablet 40 mg PO QHS RF: 0 Lantus Solostar U-100 Insulin 100 unit/mL (3 mL) Insulin Pen 22 unit SUBCUT QPM RF: 0 verapamil 120 mg capsule,ext rel. pellets 24 hr 120 mg PO QHS RF: 0 Primary Care Provider: Gwen Verdin Referrals: Gwen Verdin MD [Primary Care Provider] - [facility] [NON-STAFF] - As soon as possible Activity Restrictions/Additional Instructions: Call your insurance company and see who is on their panel for local dentist. You can also follow-up with [facility]. Ice to jaw. Motrin and Percocet for pain. Currently it is not infected if you start getting swelling of the gums you can start the prescription clindamycin. Disposition Disposition: Home, Self Care
[2021-01-19 01:10] VITALS: BP 136/87; PULSE 128; RESP 16; O2SAT 96
== END 2021-01-19 01:24 | disposition home or self-care (01) ==
PROVIDERS: Emergency Provider Emergency Medicine; PCP Internal Medicine
DX: S02.5XXA Fracture of tooth (traumatic), initial encounter for closed fracture (principal); X58.XXXA Exposure to other specified factors, initial encounter; Y93.9 Activity, unspecified; Y92.9 Unspecified place or not applicable; Y99.9 Unspecified external cause status; E11.9 Type 2 diabetes mellitus without complications; Z79.4 Long term (current) use of insulin; Z79.899 Other long term (current) drug therapy
CPT/HCPCS: 99282

== ENCOUNTER → 2021-02-19 13:02 | Outpatient (CLI) | payer MEDICAID, SELFPAY ==
--- NOTE | 2021-02-19 13:03 | RAD_ITS ---
STUDY: X-RAY CHEST REASON FOR EXAM: Female, 35 years old. 4 day history of cough and shortness of breath. TECHNIQUE: Single AP portable view of the chest. COMPARISON: Comparison is made with prior study dated 11/23/2020. FINDINGS: Minimal increased markings at the left lung base suggestive of left basilar atelectasis and/or early infiltrate. There is no demonstrated pleural abnormality. Normal size heart. Normal mediastinum and winnie. Normal visualized pulmonary arteries. Normal visualized aortic arch and descending thoracic aorta. Normal visualized thoracic spine. Normal visualized ribs, clavicles, and shoulders. There is no demonstrated abnormality of the visualized soft tissue structures of the upper abdomen. RAD/Chest PA and Lateral IMPRESSION: Mild degree of increased markings at the left lung base. Follow-up is recommended. Electronically Signed: Luis Velazquez MD at 13:27 EDT , Service support ,
== END ==
PROVIDERS: PCP Internal Medicine; Referring Provider Physician Assistant Surgical; Visit Provider Physician Assistant Surgical
DX: J20.9 Acute bronchitis, unspecified (principal); Z20.822 Contact with and (suspected) exposure to COVID-19
CPT/HCPCS: 71046

== ENCOUNTER → 2021-02-19 | Outpatient (CLI) | payer MEDICAID, SELFPAY | END | disposition home or self-care (01) | LOC: LABSPEC 16:22 | PROVIDERS: PCP Internal Medicine; Visit Provider Physician Assistant Surgical | DX: R09.81 Nasal congestion (principal); J20.9 Acute bronchitis, unspecified; Z20.822 Contact with and (suspected) exposure to COVID-19 | CPT/HCPCS: 71046; 87635; U0005; U0003 ==

== ENCOUNTER 2021-02-20 12:05 | Emergency (ER) | payer MEDICAID, SELFPAY ==
[2021-02-20 12:06] VITALS: BP 138/114; PULSE 137; RESP 20; TEMP 36.8; O2SAT 98; BMI 37.5
[2021-02-20 12:36] LABS: Bedside Glucose > 500 mg/dL (70-110)
--- NOTE | 2021-02-20 12:36 | EX.ED.DYSGE1 ---
HPI History of Present Illness Chief Complaint: Hyperglycemia Informant: patient Narrative Narrative: Patient feels malaised, some blurry vision today, and her blood sugar was reading high on her meter. She is a type II diabetic. She takes Lantus every night 28 units so she repeated that this morning thinking it would help her sugar come down. She has been compliant with her medication she never misses her Metformin, glipizide, or Lantus. Yesterday in the morning, her blood sugar was 208. Last night she woke up around midnight extremely thirsty and had to urinate a lot. She drank a lot of water and went back to bed without checking her blood sugar because she was too tired. She has had some minor URI symptoms for the last couple days. Nonproductive cough, nasal congestion, hoarseness. No fevers, chills, sore throat, chest discomfort or shortness of breath with the exception of some minor wheezing occasionally when she lies down. She does not have asthma or COPD. She has had several family friend sick contacts lately, they tested negative for Covid. She went to urgent care yesterday, they ran the PCR which is still pending and for reasons that are unknown at this time they prescribed her doxycycline and a prednisone taper starting at 60 mg which she started yesterday. [facility] Medical History Anxiety Asthma Chest pain Depression Diabetes DVT (deep venous thrombosis) Kidney stones Knee arthropathy Migraines Home Medications alprazolam [Xanax] 1 mg PO DAILY PRN PRN 11/24/17 [History Last Taken 11/23/20] furosemide 40 mg PO DAILY PRN 06/11/19 [History Last Taken 11/23/20] hydrochlorothiazide 25 tab PO DAILY 06/11/19 [History Last Taken 11/23/20] amitriptyline 10 mg PO QHS 11/22/20 [History Last Taken 11/22/20] metformin 500 mg PO BID 11/22/20 [History Last Taken 11/23/20] glipizide 10 mg PO BID 11/23/20 [History Last Taken 11/23/20] promethazine 25 mg PO Q6H PRN PRN 11/23/20 [History Last Taken Unknown] atorvastatin 40 mg PO QHS 12/26/20 [History Last Taken Unknown] oxycodone 5 mg PO Q6H PRN PRN 12/26/20 [History Last Taken Unknown] Lantus Solostar U-100 Insulin 28 unit SUBCUT QPM 01/19/21 [History Last Taken Unknown] Allergy/AdvReac Type Severity Reaction Status Date / Time Penicillins Allergy Hives Verified 02/20/21 12:10 azithromycin [From Zithromax] AdvReac Vomiting Verified 02/20/21 12:10 latex AdvReac Rash Verified 02/20/21 12:10 minocycline [Minocycline] AdvReac Other Verified 02/20/21 12:10 NSAIDS (Non-Steroidal AdvReac Bleeding Verified 02/20/21 12:10 Anti-Inflamma tramadol AdvReac Shortness Verified 02/20/21 12:10 of breath Family History Mother Diabetes Surgical History H/O: hysterectomy History of cholecystectomy Social History Smoking Status: Never smoker ROS ROS ED Constitutional Constitutional ED: Reports malaise; Denies body ache(s), chills or fever(s) Eyes Eyes: Denies change in vision or diplopia ENT ENT ED: Reports hoarseness, nasal congestion and rhinorrhea; Denies loss taste/smell or sore throat Cardiovascular Cardiovascular: Denies chest pain or palpitations Respiratory/Chest Respiratory/Chest: Reports cough; Denies dyspnea Gastrointestinal Gastrointestinal: Denies abdominal pain, diarrhea, nausea or vomiting Genitourinary Genitourinary ED: Denies dysuria or hematuria Musculoskeletal Musculoskeletal: Denies back pain or neck pain Integumentary Denies abscess or rash Neurologic Neurologic: Denies headache(s), paresthesias or weakness Psychiatric Psychiatric: Denies anxiety or suicidal thoughts EXAM Physical Exam Const Vital Signs: 02/20/21 12:06 02/20/21 12:41 02/20/21 14:34 Temperature 98.2 F Temperature Source Temporal Pulse Rate 137 H 119 H Respiratory Rate 20 H 20 H Respiratory Effort Normal Non-Labored Blood Pressure 138/114 H 126/79 H Blood Pressure Mean 122 94 Pulse Ox 98 95 Oxygen Delivery Method Room Air Room Air Positive well nourished and well developed General Appearance ED: well developed and NAD HEENT Reports moist mucous membranes HEENT Narrative: Hoarse of voice without stridor normocephalic and atraumatic Throat: posterior oropharynx normal Eyes PERRL and EOMs intact bilaterally Neck full ROM and supple Resp normal respiratory effort and clear to auscultation bilaterally Cardio regular rate, regular rhythm and no murmurs GI non-tender and non-distended Auscultation: normoactive bowel sounds Palpation: soft Back/Spine no CVA tenderness General Back: other FROM Extremity normal to inspection General Extremety ED: Negative for edema, pulses abnormal or tenderness General Extremity: Negative for edema or pulses abnormal Neuro oriented x3, CN's II-XII intact bilaterally and no sensory deficits noted Sensorium / Orientation: awake and alert Motor Exam: strength 5/5 throughout Skin no rashes or lesions noted and no wounds MDM MDM MDM Narrative Medical decision making narrative: This patient is hyperglycemic due to the prednisone. She ate relatively little throughout the day yesterday, the only carbohydrates that she had was from the bread of half of a [employer] sandwich. I reassured her, she does not need the prednisone nor the doxycycline in my clinical judgment. They should both be discontinued. Because she is so tachycardic in the 130s, I suspect she is dehydrated so we placed an IV and gave her a liter of fluid, and I checked a chemistry panel after we did a BGT that was 512. She was also given insulin lispro 20 units subcutaneous and we monitored her for a while, checking her blood sugar several times until we were able to get it down to a reasonable level. I think she is safe to go home and I recommend discontinuing the above medications. And drinking plenty of fluids she is comfortable with that plan. Lab Data Attestation: I reviewed the patient's lab results. Labs: Laboratory Results - last 24 hr 02/20/21 02/20/21 02/20/21 12:28 13:19 13:58 Sodium 130 L Potassium 3.5 Chloride 94 L Carbon Dioxide 26.0 Anion Gap 10 BUN 14 Creatinine 1.08 H Estim Creat Clear Calc 52.72 Est GFR (MDRD) Af Amer 74 Est GFR (MDRD) Non-Af 61 BUN/Creatinine Ratio 13.0 Glucose 475 H* Calcium 10.0 POC Glucose > 500 H* 377 H 02/20/21 02/20/21 14:38 15:35 Sodium Potassium Chloride Carbon Dioxide Anion Gap BUN Creatinine Estim Creat Clear Calc Est GFR (MDRD) Af Amer Est GFR (MDRD) Non-Af BUN/Creatinine Ratio Glucose Calcium POC Glucose 366 H 310 H Discharge Plan Triage Chief Complaint: Hyperglycemia ED Provider: Redd Bustamante Dx/Rx/DC Orders Clinical Impression: Hyperglycemia, drug-induced, Viral URI with cough Instructions: ED Drug Reaction, Other Prescriptions: Continued alprazolam [Xanax] 1 MG tablet 1 mg PO DAILY PRN PRN (Reason: Anxiety) RF: 0 furosemide 40 MG tablet 40 mg PO DAILY PRN (Reason: fluid retention) RF: 0 hydrochlorothiazide 25 MG tablet 25 tab PO DAILY RF: 0 amitriptyline 10 mg tablet 10 mg PO QHS RF: 0 metformin 500 mg tablet extended release 24hr 500 mg PO BID RF: 0 promethazine 25 mg tablet 25 mg PO Q6H PRN PRN (Reason: Nausea) RF: 0 glipizide 5 mg tablet 10 mg PO BID RF: 0 oxycodone 5 mg capsule 5 mg PO Q6H PRN PRN (Reason: Pain) RF: 0 atorvastatin 40 mg tablet 40 mg PO QHS RF: 0 Lantus Solostar U-100 Insulin 100 unit/mL (3 mL) Insulin Pen 28 unit SUBCUT QPM RF: 0 Discontinued doxycycline hyclate 100 mg capsule 100 mg PO BID 10 Days Qty: 20 RF: 0 methylprednisolone [Medrol (Michael)] 4 mg tablets,dose pack 4 mg PO PER PKG DIR 5 Days Qty: 21 RF: 0 Primary Care Provider: Gwen Verdin Referrals: Gwen Verdin MD [Primary Care Provider] - As Needed Activity Restrictions/Additional Instructions: In the future, do not use your Lantus emergently to try to get your blood sugar down, it will not work! You may take half your usual dose of Lantus tonight since you did another full dose this morning. Disposition Disposition: Home, Self Care
[2021-02-20] MEDS: 0.9% Normal Saline 1,000 ML 999 ML IV (13:26)
[2021-02-20] MEDS: Insulin Lispro 100 UNIT/ML INSULN.PEN 20 UNIT SC (13:27)
[2021-02-20 13:45] LABS: Anion Gap 10 (5-15); BUN 14 mg/dL (7-18); Chloride 94 mmol/L (98-107); Creatinine, Serum 1.08 mg/dL (0.55-1.02); EST Glomerular Filtration Rate 61 mL/min (>60); Est Glom Filt Rate - Afr Amer 74 mL/min (>60); Estimated Creatinine Clearance 52.72 ml/min; Glucose 475 mg/dL (74-106); Potassium 3.5 mmol/L (3.5-5.1); Sodium Level 130 mmol/L (136-145)
[2021-02-20] MEDS: Ondansetron 4 MG/2 ML Vial IV (13:46)
[2021-02-20 14:01] LABS: Bedside Glucose 377 mg/dL (70-110)
[2021-02-20 14:34] VITALS: BP 126/79; PULSE 119; RESP 20; O2SAT 95
[2021-02-20 14:41] LABS: Bedside Glucose 366 mg/dL (70-110)
[2021-02-20 15:41] LABS: Bedside Glucose 310 mg/dL (70-110)
[2021-02-20 16:15] VITALS: BP 121/69; PULSE 81; RESP 18; O2SAT 99
== END 2021-02-20 16:16 | disposition home or self-care (01) ==
PROVIDERS: Emergency Provider Emergency Medicine; PCP Internal Medicine
DX: E11.65 Type 2 diabetes mellitus with hyperglycemia (principal); T38.0X5A Adverse effect of glucocorticoids and synthetic analogues, initial encounter; J06.9 Acute upper respiratory infection, unspecified; E86.0 Dehydration; F32.9 Major depressive disorder, single episode, unspecified; F41.9 Anxiety disorder, unspecified; Z79.4 Long term (current) use of insulin; Z79.899 Other long term (current) drug therapy
CPT/HCPCS: 80048; 82962; 87426; 96361; 96374; 99285; J7030; A4216; J2405

== ENCOUNTER 2021-05-14 18:17 | Emergency (ER) | payer MEDICAID, SELFPAY ==
[2021-05-14 18:18] VITALS: BP 169/146; PULSE 110; RESP 20; TEMP 36.5; O2SAT 100; BMI 28.9
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
[2021-05-14 20:16] VITALS: PULSE 89; RESP 18
[2021-05-14] MEDS: DiphenhydrAMINE 50 MG/ML Syringe 25 MG IV (20:32)
[2021-05-14] MEDS: Metoclopramide 10 MG/2 ML Vial IV (20:34)
[2021-05-14 20:43] VITALS: PULSE 79; RESP 18
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
[2021-05-14 22:03] VITALS: BP 102/59; PULSE 92; RESP 18; O2SAT 99
== END 2021-05-14 22:05 | disposition home or self-care (01) ==
PROVIDERS: Emergency Provider Student in an Organized Health Care Education/Training Program; PCP Internal Medicine
DX: S06.0X9A Concussion with loss of consciousness of unspecified duration, initial encounter (principal); F32.A Depression, unspecified; F41.9 Anxiety disorder, unspecified; E11.9 Type 2 diabetes mellitus without complications; V40.0XXA Car driver injured in collision with pedestrian or animal in nontraffic accident, initial encounter; Y92.410 Unspecified street and highway as the place of occurrence of the external cause; Z79.4 Long term (current) use of insulin; Z79.899 Other long term (current) drug therapy
CPT/HCPCS: 70450; 96374; 96375; 99284; A4216

== ENCOUNTER 2021-07-06 23:46 | Emergency (ER) | payer MEDICAID, SELFPAY ==
[2021-07-06 23:47] VITALS: BP 130/75; PULSE 134; RESP 18; TEMP 38.1; O2SAT 100; BMI 30.8
[2021-07-07] MEDS: Ketorolac 30 MG/ML Syringe IV (01:10)
[2021-07-07] MEDS: dexAMETHasone 10 MG/ML Vial IV (01:11)
--- NOTE | 2021-07-07 02:08 | EX.ED.DYSGE1 ---
HPI History of Present Illness Chief Complaint: General Illness Narrative Narrative: Patient is a 36-year-old female who states she began feeling sick on Monday. She states she took a home Covid test on Monday which was positive. She states throughout the day she has had increased fatigue and muscle aches. She states that she has tried [id number] medication with minimal symptom improvement and secondary to this comes to the hospital for evaluation [facility] Medical History Anxiety Asthma Chest pain Depression Diabetes DVT (deep venous thrombosis) Kidney stones Knee arthropathy Migraines Home Medications alprazolam [Xanax] 1 mg PO DAILY PRN PRN 11/24/17 [History Last Taken 11/23/20] furosemide 40 mg PO DAILY PRN 06/11/19 [History Last Taken 11/23/20] amitriptyline 10 mg PO QHS 11/22/20 [History Last Taken 11/22/20] metformin 500 mg PO BID 11/22/20 [History Last Taken 11/23/20] glipizide 10 mg PO BID 11/23/20 [History Last Taken 11/23/20] promethazine 25 mg PO Q6H PRN PRN 11/23/20 [History Last Taken Unknown] atorvastatin 40 mg PO QHS 12/26/20 [History Last Taken Unknown] oxycodone 5 mg PO Q6H PRN PRN 12/26/20 [History Last Taken Unknown] Lantus Solostar U-100 Insulin 34 unit SUBCUT QPM 01/19/21 [History Last Taken Unknown] ondansetron 4 mg PO Q8H PRN PRN #10 tab 05/14/21 [Rx Last Taken Unknown] albuterol sulfate [Ventolin HFA] 1 - 2 puff INHALATION Q4H PRN PRN #1 device 07/07/21 [Rx Last Taken Unknown] dexamethasone [Decadron] 6 mg PO DAILY 10 Days #10 tab 07/07/21 [Rx Last Taken Unknown] promethazine-codeine 5 ml PO Q6H PRN 7 Days #140 ml 07/07/21 [Rx Last Taken Unknown] Allergy/AdvReac Type Severity Reaction Status Date / Time Penicillins Allergy Hives Verified 07/06/21 23:49 azithromycin [From Zithromax] AdvReac Vomiting Verified 07/06/21 23:49 doxycycline AdvReac Other Verified 07/06/21 23:56 latex AdvReac Rash Verified 07/06/21 23:49 minocycline [Minocycline] AdvReac Other Verified 07/06/21 23:49 NSAIDS (Non-Steroidal AdvReac Bleeding Verified 07/06/21 23:49 Anti-Inflamma tramadol AdvReac Shortness Verified 07/06/21 23:49 of breath Family History Mother Diabetes Surgical History H/O: hysterectomy History of cholecystectomy Social History Smoking Status: Never smoker ROS ROS ED Constitutional Constitutional ED: Reports chills and fever(s) ENT ENT ED: Reports rhinorrhea and sore throat Cardiovascular Cardiovascular: Denies chest pain Respiratory/Chest Respiratory/Chest: Reports cough and dyspnea Gastrointestinal Gastrointestinal: Reports nausea; Denies abdominal pain, diarrhea or vomiting Genitourinary Genitourinary ED: Denies dysuria Musculoskeletal Musculoskeletal: Reports myalgias Integumentary Denies rash Neurologic Neurologic: Reports headache(s) Hematologic/Lymphatic Hematologic/Lymphatic: Denies easy bleeding or easy bruising EXAM Physical Exam Const Vital Signs: 07/06/21 23:47 07/06/21 23:59 Temperature 100.5 F H Temperature Source Temporal Pulse Rate 134 H Respiratory Rate 18 Respiratory Effort Normal Respiratory Pattern Normal Blood Pressure 130/75 H Blood Pressure Mean 93 Pulse Ox 100 Oxygen Delivery Method Room Air Positive well nourished, well developed and obese General Appearance ED: well developed Nutritional Appearance: obese HEENT Reports dry mucous membranes Mouth ED: Yes dry mucous membranes Mouth: dry mucous membranes Eyes PERRL and EOMs intact bilaterally Neck supple Neck Narrative: Positive anterior cervical lymphadenopathy Resp normal respiratory effort and clear to auscultation bilaterally Cardio regular rhythm Rate: tachycardic GI normal to inspection, nondistended, normoactive bowel sounds, non-tender, non-distended and no masses GI Narrative: No voluntary guarding or rigidity no pulsatile mass Auscultation: normoactive bowel sounds Palpation: soft Extremity normal to inspection Extremity Narrative: No asymmetric edema no pitting edema negative Homans' sign bilaterally Neuro oriented x3 and CN's II-XII intact bilaterally Sensorium / Orientation: alert Motor Exam: strength 5/5 throughout Psych Psych Narrative: Patient has a depressed/flat affect Mood & Affect: depressed Skin no rashes or lesions noted Skin Narrative: Skin turgor is normal MDM MDM MDM Narrative Medical decision making narrative: Patient presented to the ER with low-grade fever and was mildly tachycardic. However her blood pressure was normotensive her pulse ox was 100% on room air and she had no signs of respiratory distress. Her vital signs and physical exam are consistent with Covid. At this time she is not hypoxic or showing signs of respiratory distress or any type of changes to suggest severe dehydration so do not feel there is need for laboratory or imaging studies. Patient was given IV hydration as well as Decadron and Toradol and on reevaluation reported feeling better. She also remained in no acute respiratory distress with stable pulse ox. Therefore at this time there is no need for admission based on her COVID-19 infection and she can be discharged with symptomatic care Discharge Plan Triage Chief Complaint: General Illness ED Provider: Beto Enriquez Dx/Rx/DC Orders Clinical Impression: COVID-19 Instructions: Coronavirus Disease 2019 (COVID-19): Caring for Yourself or Others Prescriptions: New dexamethasone [Decadron] 6 mg tablet 6 mg PO DAILY 10 Days Qty: 10 RF: 0 albuterol sulfate [Ventolin HFA] 90 mcg/actuation HFA aerosol inhaler 1 - 2 puff inhalation Q4H PRN PRN (Reason: Wheezing) Qty: 1 RF: 0 promethazine-codeine 6.25-10 mg/5 mL syrup 5 ml PO Q6H PRN (Reason: cough) 7 Days Qty: 140 RF: 0 No Action alprazolam [Xanax] 1 MG tablet 1 mg PO DAILY PRN PRN (Reason: Anxiety) RF: 0 furosemide 40 MG tablet 40 mg PO DAILY PRN (Reason: fluid retention) RF: 0 amitriptyline 10 mg tablet 10 mg PO QHS RF: 0 metformin 500 mg tablet extended release 24hr 500 mg PO BID RF: 0 promethazine 25 mg tablet 25 mg PO Q6H PRN PRN (Reason: Nausea) RF: 0 glipizide 5 mg tablet 10 mg PO BID RF: 0 oxycodone 5 mg capsule 5 mg PO Q6H PRN PRN (Reason: Pain) RF: 0 atorvastatin 40 mg tablet 40 mg PO QHS RF: 0 Lantus Solostar U-100 Insulin 100 unit/mL (3 mL) Insulin Pen 34 unit SUBCUT QPM RF: 0 ondansetron 4 mg tablet,disintegrating 4 mg PO Q8H PRN PRN (Reason: Nausea) Qty: 10 RF: 0 Stand Alone Forms: ED Work / School Excuse Primary Care Provider: Gwen Verdin Referrals: Gwen Verdin MD [Primary Care Provider] - Activity Restrictions/Additional Instructions: Please continue to take Tylenol throughout the day to control fever and return to the ER should you have any further concerns Disposition Disposition: Home, Self Care Discharge Date/Time: 07/07/21 02:24
== END 2021-07-07 02:24 | disposition home or self-care (01) ==
PROVIDERS: Emergency Provider Emergency Medicine; PCP Internal Medicine; Visit Provider Emergency Medicine
DX: U07.1 COVID-19 (principal); E11.9 Type 2 diabetes mellitus without complications; Z79.4 Long term (current) use of insulin; J45.909 Unspecified asthma, uncomplicated; F32.A Depression, unspecified; F41.9 Anxiety disorder, unspecified; E66.9 Obesity, unspecified; Z68.30 Body mass index [BMI] 30.0-30.9, adult; Z79.84 Long term (current) use of oral hypoglycemic drugs; Z79.899 Other long term (current) drug therapy
CPT/HCPCS: 96361; 96374; 96375; 99283; J7040

== ENCOUNTER 2021-08-08 13:03 | Inpatient (IN) | payer MEDICAID, SELFPAY ==
[2021-08-08] VITALS (11 sets, daily range): BP systolic 89–127; BP diastolic 52–87; PULSE 93–123; RESP 12–19; TEMP 36–36.6; O2SAT 95–98; BMI 31.8; BMI 36.3
--- NOTE | 2021-08-08 13:27 | EX.ED.DYSGE1 ---
HPI History of Present Illness Chief Complaint: Hyperglycemia Detail of Chief Complaint: Elevated blood glucose Informant: patient Narrative Narrative: Patient presents with elevated blood glucose has been going on for last 4 days. Patient states today her meter just reads high. Patient states that she saw her primary care physician 4 days ago and had blood work and at that time her blood sugar was 695 and her sodium was 126. Patient has been taking her insulin and oral meds but cannot control her blood sugars. Patient complains of nausea and vomiting. She denies fevers. She denies dysuria but she has had urinary incontinence. She denies chest pain or shortness of breath. She denies cough. Prior similar symptoms: No PFSH PFSH Medical History Anxiety Asthma Chest pain Depression Diabetes DVT (deep venous thrombosis) Kidney stones Knee arthropathy Migraines Home Medications alprazolam [Xanax] 1 mg PO DAILY PRN PRN 11/24/17 [History Last Taken 11/23/20] furosemide 40 mg PO DAILY PRN 06/11/19 [History Last Taken 11/23/20] amitriptyline 10 mg PO QHS 11/22/20 [History Last Taken 11/22/20] metformin 500 mg PO BID 11/22/20 [History Last Taken 11/23/20] glipizide 10 mg PO BID 11/23/20 [History Last Taken 11/23/20] promethazine 25 mg PO Q6H PRN PRN 11/23/20 [History Last Taken Unknown] atorvastatin 40 mg PO QHS 12/26/20 [History Last Taken Unknown] oxycodone 5 mg PO Q6H PRN PRN 12/26/20 [History Last Taken Unknown] Lantus Solostar U-100 Insulin 34 unit SUBCUT QPM 01/19/21 [History Last Taken Unknown] ondansetron 4 mg PO Q8H PRN PRN #10 tab 05/14/21 [Rx Last Taken Unknown] albuterol sulfate [Ventolin HFA] 1 - 2 puff INHALATION Q4H PRN PRN #1 device 07/07/21 [Rx Last Taken Unknown] dexamethasone [Decadron] 6 mg PO DAILY 10 Days #10 tab 07/07/21 [Rx Last Taken Unknown] promethazine-codeine 5 ml PO Q6H PRN 7 Days #140 ml 07/07/21 [Rx Last Taken Unknown] Allergy/AdvReac Type Severity Reaction Status Date / Time Penicillins Allergy Hives Verified 08/08/21 13:04 azithromycin [From Zithromax] AdvReac Vomiting Verified 08/08/21 13:04 doxycycline AdvReac Other Verified 08/08/21 13:04 latex AdvReac Rash Verified 08/08/21 13:04 minocycline [Minocycline] AdvReac Other Verified 08/08/21 13:04 NSAIDS (Non-Steroidal AdvReac Bleeding Verified 08/08/21 13:04 Anti-Inflamma tramadol AdvReac Shortness Verified 08/08/21 13:04 of breath Family History Mother Diabetes Surgical History H/O: hysterectomy History of cholecystectomy Social History Smoking Status: Never smoker ROS ROS ED ROS Narrative Increased thirst Constitutional Constitutional ED: Reports systems reviewed and no addt'l complaints, except as documented; Denies body ache(s), change in weight or chills Eyes Eyes: Denies acute decrease in peripheral vision, change in vision, double vision or loss of vision ENT ENT ED: Reports none; Denies ear pain, lip swelling, loss taste/smell, neck pain, otalgia or sore throat Cardiovascular Cardiovascular: Reports none; Denies abdominal pain, chest pain with activity, leg edema, lightheadedness, palpitations, rapid heart rate or syncope Respiratory/Chest Respiratory/Chest: Reports none; Denies change in mental status, dry cough, dyspnea, hemoptysis, shortness of breath at rest or shortness of breath with exertion Gastrointestinal Gastrointestinal: Reports none, nausea and vomiting; Denies abdominal pain, change in stool character, diarrhea, hematemesis, hematochezia, melena or rectal bleeding Genitourinary Genitourinary ED: Reports none and other Details: Urinary incontinence ; Denies abdominal discomfort, anuria, dysuria, genital pain or polyuria Musculoskeletal Musculoskeletal: Reports none; Denies arthralgias, back pain, difficulty walking, extremity pain, muscle weakness or myalgias Integumentary Reports none; Denies abscess or rash Neurologic Neurologic: Reports none; Denies abnormal gait, confusion, focal weakness, frequent falls, headache(s), loss of vision, numbness, paresthesias, radicular pain, vertigo or weakness Psychiatric Psychiatric: Reports systems reviewed and no addt'l complaints, except as documented and none; Denies behavioral changes, confusion, difficulty concentrating, hallucinations, suicidal ideation, tactile hallucinations or visual hallucinations Endocrine Endocrinology: Denies none, cold intolerance, excessive sweating, fatigue or heat intolerance Hematologic/Lymphatic Hematologic/Lymphatic: Reports none; Denies anemia, easy bleeding or easy bruising Allergic/Immunologic Allergic/Immunologic ED: Denies as per HPI, none, lip swelling, mouth swelling, throat swelling, tongue swelling or hives EXAM Physical Exam Const Vital Signs: 08/08/21 13:04 08/08/21 13:29 Temperature 96.8 F L Temperature Source Temporal Pulse Rate 123 H Respiratory Rate 15 Respiratory Effort Normal Respiratory Pattern Normal Blood Pressure 124/87 H Blood Pressure Mean 99 Pulse Ox 98 Oxygen Delivery Method Room Air Positive well nourished and well developed General Appearance ED: well developed and NAD HEENT Reports TM's clear and moist mucous membranes normocephalic and atraumatic; Negative for trauma or tenderness Tympanic Membrane ED: Yes TM's clear Eyes PERRL and EOMs intact bilaterally General Eye ED: Negative for pale conjunctiva or scleral icterus Neck no lymphadenopathy, supple and no JVD General: Negative for tenderness Chest Wall inspection of chest normal and palpation of chest normal Chest: Negative for tenderness Resp normal respiratory effort and clear to auscultation bilaterally Effort and Inspection: Negative for respiratory distress or pain with movement Auscultation: Negative for rhonchi, wheezes or diminished lung sounds Cardio regular rate, regular rhythm, S1 normal heart sound, S2 normal heart sound and no murmurs Peripheral Pulses: pulses 2+ throughout GI normal to inspection, nondistended, normoactive bowel sounds, soft to palpation, non-distended and no masses GI Narrative: Mild epigastric tenderness on palpation. There is no rebound, rigidity, or peritoneal signs. Back/Spine no CVA tenderness and no thoracic nor lumbar tenderness Extremity normal to inspection General Extremety ED: Negative for edema General Extremity: Negative for edema Neuro oriented x3, CN's II-XII intact bilaterally, no sensory deficits noted and gait normal Sensorium / Orientation: awake, alert, oriented to person, oriented to place and oriented to time Motor Exam: strength 5/5 throughout and strength abnormal Psych mental status grossly normal Skin no rashes or lesions noted and no wounds MDM MDM MDM Narrative Medical decision making narrative: IV line established on arrival. Patient noted to be quite hyperglycemic and nonketotic. Patient had a normal anion gap. She was started on an insulin drip. Given a liter normal same fluid bolus on arrival. Patient had a normal urinalysis. Case discussed with hospitalist will evaluate patient for admission to the ICU. Lab Data Attestation: I reviewed the patient's lab results. Labs: Laboratory Results - last 24 hr 08/08/21 08/08/21 08/08/21 13:45 13:50 13:50 WBC 4.6 RBC 3.96 L Hgb 12.8 Hct 36.8 L MCV 92.9 MCH 32.3 H MCHC 34.8 RDW Std Deviation 43.7 RDW Coeff of Louis 12.8 Plt Count 160 MPV 11.6 Immature Gran % (Auto) 0.400 Neut % (Auto) 38.6 L Lymph % (Auto) 53.4 H [place] % (Auto) 5.9 Eos % (Auto) 1.3 Baso % (Auto) 0.4 Absolute Neuts (auto) 1.8 L Absolute Lymphs (auto) 2.44 Nucleated RBC % 0 Sodium 125 L Potassium 4.3 Chloride 90 L Carbon Dioxide 25.0 Anion Gap 10 BUN 8 Creatinine 1.21 H Estim Creat Clear Calc 46.61 Est GFR (MDRD) Af Amer 65 Est GFR (MDRD) Non-Af 54 L BUN/Creatinine Ratio 6.6 L Glucose 832 H* Calcium 8.6 Total Bilirubin 0.20 AST 30 ALT 83 H Alkaline Phosphatase 133 H Total Protein 6.9 Albumin 3.1 L Globulin 3.8 Albumin/Globulin Ratio 0.8 L Lipase 135 Urine Color Straw Urine Clarity Clear Urine pH 6.5 Ur Specific [place] 1.010 Urine Protein Negative Urine Glucose (UA) 1000 H Urine Ketones Negative Urine Occult Blood Negative Urine Nitrite Negative Urine Bilirubin Negative Urine Urobilinogen Normal Ur Leukocyte Esterase Negative Urine RBC 0 SEEN Urine WBC 0 SEEN Ur Squamous Epith Cells 0 SEEN Urine Bacteria 0 SEEN Urine Mucus 0 SEEN Acetone Level 08/08/21 13:50 WBC RBC Hgb Hct MCV MCH MCHC RDW Std Deviation RDW Coeff of [place] Plt Count MPV Immature Gran % (Auto) Neut % (Auto) Lymph % (Auto) [place] % (Auto) Eos % (Auto) Baso % (Auto) Absolute Neuts (auto) Absolute Lymphs (auto) Nucleated RBC % Sodium Potassium Chloride Carbon Dioxide Anion Gap BUN Creatinine Estim Creat Clear Calc Est GFR (MDRD) Af Amer Est GFR (MDRD) Non-Af BUN/Creatinine Ratio Glucose Calcium Total Bilirubin AST ALT Alkaline Phosphatase Total Protein Albumin Globulin Albumin/Globulin Ratio Lipase Urine Color Urine Clarity Urine pH Ur Specific [place] Urine Protein Urine Glucose (UA) Urine Ketones Urine Occult Blood Urine Nitrite Urine Bilirubin Urine Urobilinogen Ur Leukocyte Esterase Urine RBC Urine WBC Ur Squamous Epith Cells Urine Bacteria Urine Mucus Acetone Level NEGATIVE Discharge Plan Triage Chief Complaint: Hyperglycemia ED Provider: Aba Roberts Dx/Rx/DC Orders Clinical Impression: Acute hyperglycemia, Diabetic hyperosmolar non-ketotic state, Acute hyponatremia Prescriptions: No Action alprazolam [Xanax] 1 MG tablet 1 mg PO DAILY PRN PRN (Reason: Anxiety) RF: 0 furosemide 40 MG tablet 40 mg PO DAILY PRN (Reason: fluid retention) RF: 0 amitriptyline 10 mg tablet 10 mg PO QHS RF: 0 metformin 500 mg tablet extended release 24hr 500 mg PO BID RF: 0 promethazine 25 mg tablet 25 mg PO Q6H PRN PRN (Reason: Nausea) RF: 0 glipizide 5 mg tablet 10 mg PO BID RF: 0 oxycodone 5 mg capsule 5 mg PO Q6H PRN PRN (Reason: Pain) RF: 0 atorvastatin 40 mg tablet 40 mg PO QHS RF: 0 Lantus Solostar U-100 Insulin 100 unit/mL (3 mL) Insulin Pen 34 unit SUBCUT QPM RF: 0 ondansetron 4 mg tablet,disintegrating 4 mg PO Q8H PRN PRN (Reason: Nausea) Qty: 10 RF: 0 dexamethasone [Decadron] 6 mg tablet 6 mg PO DAILY 10 Days Qty: 10 RF: 0 albuterol sulfate [Ventolin HFA] 90 mcg/actuation HFA aerosol inhaler 1 - 2 puff inhalation Q4H PRN PRN (Reason: Wheezing) Qty: 1 RF: 0 promethazine-codeine 6.25-10 mg/5 mL syrup 5 ml PO Q6H PRN (Reason: cough) 7 Days Qty: 140 RF: 0 Primary Care Provider: Gwen Verdin Referrals: Gwen Verdin MD [Primary Care Provider] - Disposition Disposition: Acute Care [facility]
[2021-08-08] MEDS: 0.9% Normal Saline 1,000 ML 1000 ML IV (13:53)
[2021-08-08 14:03] LABS: Bacteria 0 SEEN /hpf (None Seen); Mucous, Urine 0 SEEN /hpf (<or=2+); Red Blood Cells-Urine 0 SEEN /hpf (0-5); Squamous Epithelial Cells - UA 0 SEEN /hpf (5-10); White Blood Cells 0 SEEN /hpf (0-5)
[2021-08-08 14:05] LABS: Absolute Lymphocyte Count 2.44 X10^3/uL (0.83-4.51); Absolute Neutrophil Count 1.8 X10^3/uL (2.0-7.7); Basophil# 0.02 X10^3/uL; Basophil% 0.4 % (0-1); Eosinophil# 0.06 X10^3/uL; Eosinophils% 1.3 % (0-5); Hematocrit 36.8 % (37-47); Hemoglobin 12.8 g/dL (12.0-15.0); Lymphocyte # 2.44 X10^3/ul (0.83-4.51); Lymphocyte % 53.4 % (19-41); Mean Corp Hgb Conc 34.8 g/dL (32-36); Mean Corpuscular Hgb 32.3 pg (27.0-32.0); Mean Corpuscular Volume 92.9 fL (81-99); Mean Platelet Vol. 11.6 fl (6.2-12.0); Monocyte# 0.27 X10^3/uL; Monocyte% 5.9 % (0-10); NRBC Flagged by Analyzer 0 % (0-5); Neutrophil # 1.76 X10^3/uL (2.7-7.7); Neutrophil % 38.6 % (47-70); Platelet Count 160 K/mm3 (150-450); RBC Distribution Width CV 12.8 % (11.6-14.6); RBC Distribution Width SD 43.7 fl (35.1-43.9); Red Blood Count 3.96 M/mm3 (4.2-5.4); White Blood Count 4.6 K/mm3 (4.4-11.0)
[2021-08-08 14:06] LABS: Color, Urine Straw (Yellow); Glucose, Dipstick 1000 mg/dl (Normal); Ketone-Dipstick Negative (Negative); Leukocyte Esterase-Dipstick Negative /ul (Negative); Nitrite-Dipstick Negative (Negative); Occult Blood-Urine Negative /ul (Negative); Protein-Dipstick Negative (Negative); Urine Bilirubin Dipstick Negative (Negative); Urine Clarity Clear (Clear); Urine Urobilinogen Normal (Normal); Urine pH 6.5 (5.0 - 8.0)
[2021-08-08 14:24] LABS: ALB/GLOB Ratio 0.8 RATIO (0.9-2.4); AST(SGOT) 30 U/L (15-37); Alanine Aminotransfer ALT/SGPT 83 U/L (13-56); Albumin, Serum 3.1 g/dL (3.2-5.0); Alkaline Phosphatase 133 U/L (45-117); Anion Gap 10 (5-15); BUN 8 mg/dL (7-18); BUN/Creat Ratio 6.6 RATIO (10-20); Calcium,Total 8.6 mg/dL (8.5-10.1); Chloride 90 mmol/L (98-107); Creatinine, Serum 1.21 mg/dL (0.55-1.02); EST Glomerular Filtration Rate 54 mL/min (>60); Est Glom Filt Rate - Afr Amer 65 mL/min (>60); Estimated Creatinine Clearance 46.61 ml/min; Globulin 3.8 g/dL (2.2-4.2); Glucose 832 mg/dL (74-106); Lipase 135 U/L (73-393); Potassium 4.3 mmol/L (3.5-5.1); Protein, Total 6.9 g/dL (6.4-8.2); Sodium Level 125 mmol/L (136-145)
[2021-08-08] MEDS: Ondansetron 4 MG/2 ML Vial IV ×3 (14:48→19:23)
--- NOTE | 2021-08-08 14:48 | HP.PCM.HOS_ITS ---
HPI - General General Date of Admission: 08/08/21 HPI Narrative VEL FARR, is a 36 F with a PMH as outlined who presents via the ED with a complaint of elevated blood sugars. Her sugars have apparently been elevated over the past few days, and says her glucometer just reads as high. She saw her PCP recently on 08/04/2021 and her blood sugar was 695. She says she had NovoLog added onto her home dose of insulin and she says she has been compliant with it. She also had a urinalysis which was negative for any evidence of infection she did have a urine culture done which showed 50 200,000 E. coli. She admits to some nausea and vomiting, as well as abdominal cramping. .She has been urinating a lot and is also incontinent of urine. She says she recently had a urinalysis which showed evidence of UTI. URinalysis done during this admission is normal and shows no evidence of UTI.. She claims adherence to her diabetes meds. Head A1c checked by her PCP on 08/04/2021 was 14.7 the patient claims has been compliant with her diabetes regimen. Vitals in the ED were blood pressure 124/87, pulse rate of 123, respiratory rate of 15 and temperature 96.8 with oxygen saturation of 98%. CBC was unremarkable, and BMP showed blood sugar of 832, with Cr of 1.21, bicarb of 25 and anion gap of 10 as well as sodium of 125. SHe is being admitted to be managed for hyperglycemia without DKA, more likely HHS. SHe is being admitted to the ICU o.a of her requiring insulin drip. REPLACED BY [facility] Medical History Anxiety Asthma Chest pain Depression Diabetes DVT (deep venous thrombosis) Kidney stones Knee arthropathy Migraines Home Medications alprazolam [Xanax] 1 mg PO DAILY PRN PRN 11/24/17 [History Last Taken 11/23/20] furosemide 40 mg PO DAILY PRN 06/11/19 [History Last Taken 11/23/20] amitriptyline 10 mg PO QHS 11/22/20 [History Last Taken 11/22/20] metformin 500 mg PO BID 11/22/20 [History Last Taken 11/23/20] glipizide 10 mg PO BID 11/23/20 [History Last Taken 11/23/20] promethazine 25 mg PO Q6H PRN PRN 11/23/20 [History Last Taken Unknown] atorvastatin 40 mg PO QHS 12/26/20 [History Last Taken Unknown] oxycodone 5 mg PO Q6H PRN PRN 12/26/20 [History Last Taken Unknown] Lantus Solostar U-100 Insulin 34 unit SUBCUT QPM 01/19/21 [History Last Taken Unknown] ondansetron 4 mg PO Q8H PRN PRN #10 tab 05/14/21 [Rx Last Taken Unknown] albuterol sulfate [Ventolin HFA] 1 - 2 puff INHALATION Q4H PRN PRN #1 device 07/07/21 [Rx Last Taken Unknown] dexamethasone [Decadron] 6 mg PO DAILY 10 Days #10 tab 07/07/21 [Rx Last Taken Unknown] promethazine-codeine 5 ml PO Q6H PRN 7 Days #140 ml 07/07/21 [Rx Last Taken Unknown] Allergy/AdvReac Type Severity Reaction Status Date / Time Penicillins Allergy Hives Verified 08/08/21 13:04 azithromycin [From Zithromax] AdvReac Vomiting Verified 08/08/21 13:04 doxycycline AdvReac Other Verified 08/08/21 13:04 latex AdvReac Rash Verified 08/08/21 13:04 minocycline [Minocycline] AdvReac Other Verified 08/08/21 13:04 NSAIDS (Non-Steroidal AdvReac Bleeding Verified 08/08/21 13:04 Anti-Inflamma tramadol AdvReac Shortness Verified 08/08/21 13:04 of breath Family History Mother Diabetes Surgical History H/O: hysterectomy History of cholecystectomy Social History Smoking Status: Never smoker ROS Constitutional Constitutional: Denies anorexia, chills, fatigue, malaise or weakness Eyes Eyes: Denies change in vision ENT HEENT: Denies dysphagia, nasal congestion or sore throat Cardiovascular Cardiovascular: Denies chest pain, dyspnea on exertion, lightheadedness, ort hopnea, palpitations, paroxysmal nocturnal dyspnea, rapid heart rate or syncope Respiratory/Chest Respiratory/Chest: Denies cough, dyspnea, productive cough, shortness of breath at rest or shortness of breath with exertion Gastrointestinal Gastrointestinal: Reports abdominal pain and nausea; Denies constipation, diarrhea, dyspepsia, hematemesis, hematochezia, melena or vomiting Genitourinary Genitourinary: Reports urinary frequency and urinary incontinence; Denies burning urination, difficulty urinating, dysuria or urinary urgency Musculoskeletal Musculoskeletal: Denies back pain Neurologic Neurologic: Denies confusion, dizziness, focal weakness, headache(s), numbness, seizures or syncope Psychiatric Psychiatric: Denies anxiety or depression Vital Signs Vital Signs Vital Signs: 08/08/21 13:04 08/08/21 13:29 Temperature 96.8 F L Temperature Source Temporal Pulse Rate 123 H Respiratory Rate 15 Respiratory Effort Normal Respiratory Pattern Normal Blood Pressure 124/87 H Blood Pressure Mean 99 Pulse Ox 98 Oxygen Delivery Method Room Air Weight Weight: 163 lb Body Mass Index (BMI) 31.8 Physical Exam Const alert and oriented x3 Constitutional Narrative: tearful during exam General Appearance: cooperative HEENT normocephalic, head/scalp atraumatic and hearing grossly normal bilaterally HEENT Narrative: dry oral mucosal membranes Eyes PERRL, EOMs intact bilaterally and conjunctivae normal Neck no lymphadenopathy, supple and no JVD Resp normal respiratory effort, no retractions, no use of accessory muscles and clear to auscultation bilaterally Cardio regular rate, regular rhythm, S1 normal heart sound, S2 normal heart sound and no murmurs GI normal to inspection, nondistended, normoactive bowel sounds, soft to palpation, non-tender and non-distended Extremity normal to inspection, full ROM and no clubbing, cyanosis or edema Peripheral Pulses: Yes pulses 2+ throughout Skin no rashes or lesions noted Neuro oriented x3, CN's II-XII intact bilaterally and moves all extremities Sensorium / Orientation: awake and alert Psych affect normal Results Lab / Micro Data Result Diagrams: 08/08/21 13:50 08/08/21 13:50 Labs: Laboratory Results - last 24 hr 08/08/21 13:45: Urine Color Straw, Urine Clarity Clear, Urine pH 6.5, Ur Specific [place] 1.010, Urine Protein Negative, Urine Glucose (UA) 1000 H, Urine Ketones Negative, Urine Occult Blood Negative, Urine Nitrite Negative, Urine Bilirubin Negative, Urine Urobilinogen Normal, Ur Leukocyte Esterase Negative, Urine RBC 0 SEEN, Urine WBC 0 SEEN, Ur Squamous Epith Cells 0 SEEN, Urine Bacteria 0 SEEN, Urine Mucus 0 SEEN 08/08/21 13:50: WBC 4.6, RBC 3.96 L, Hgb 12.8, Hct 36.8 L, MCV 92.9, MCH 32.3 H, MCHC 34.8, RDW Std Deviation 43.7, RDW Coeff of Louis 12.8, Plt Count 160, MPV 11.6, Immature Gran % (Auto) 0.400, Neut % (Auto) 38.6 L, Lymph % (Auto) 53.4 H, [place] % (Auto) 5.9, Eos % (Auto) 1.3, Baso % (Auto) 0.4, Absolute Neuts (auto) 1.8 L, Absolute Lymphs (auto) 2.44, Nucleated RBC % 0 08/08/21 13:50: Sodium 125 L, Potassium 4.3, Chloride 90 L, Carbon Dioxide 25.0, Anion Gap 10, BUN 8, Creatinine 1.21 H, Estim Creat Clear Calc 46.61, Est GFR (MDRD) Af Amer 65, Est GFR (MDRD) Non-Af 54 L, BUN/Creatinine Ratio 6.6 L, Glucose 832 H*, Calcium 8.6, Total Bilirubin 0.20, AST 30, ALT 83 H, Alkaline Phosphatase 133 H, Total Protein 6.9, Albumin 3.1 L, Globulin 3.8, Albumin/Globulin Ratio 0.8 L, Lipase 135 08/08/21 13:50: Acetone Level NEGATIVE Assessment & Plan Assessment/Plan (1) Hyperglycemia due to diabetes mellitus: (2) Hyperosmolar hyperglycemic state (HHS): PLAN: #Hyperglycemia in a known diabetic likely due to HHS * blood sugar on admisison is 835. * no baseline A1C in the records. Her recent A1C done at her PCP's office on 08/04/2021 was 14.5. * claims compliance with her insulin * admit to ICU as insulin drip needs to be titrated * hydrate aggressively with IVF * bicarb is 25 and anion gap is 10, so not in DKA * accuchecks q1hrly * Check serum osmolality * Keep n.p.o. for now. * switch to sq insulin once blood sugar drops to <250. * hold off on checking A1C as it was recently checked on 08/04/2021 * consult critical care as she is being placed in the ICU * #TYpe 2 diabetes mellitus * currently being managed for hyperglycemia as above. Hold home insulin as she is in insulin drip. * hold glipizide and metformin * Consult dietitian on account of markedly elevated A1c. * * #Elevated creatinine: * Creatinine is 1.21. Does not meet definition for ALLEN. * Likely due to dehydration from increased frequency of urination and hyperglycemia. * Being hydrated with IV fluids. Will monitor. * #Hyponatremia * Sodium is 125. This is likely due to severe hyperglycemia * Corrected sodium is 137. * Been hydrated with IV fluids. Will trend. * #Urinary frequency * I think this is all due to her marked hyperglycemia. She has no clear evidence of infection. A urinalysis done at her PCPs office on 08/04/2019 was negative for infection but her urine culture done showed E. coli of 50 200,000. We will repeat urine culture here as urinalysis done here also shows no evidence of infection. * Patient does have frequency which can be explained by her elevated sugars. We will hold off on antibiotic treatment for now until urine cultures are back. * #Hyperlipidemia: on atorvastatin #anxiety: On Xanax DVT prophylaxis: lovenox Charges/Coding Visit Charges Inpatient E&M: 71628 Init Hosp L3
[2021-08-08 15:01] LABS: Bedside Glucose > 500 mg/dL (70-110)
[2021-08-08] MEDS: Morphine 4 MG/ML Syringe IV (15:09)
[2021-08-08] MEDS: 0.9% Normal Saline 1,000 ML 150 ML IV (16:24)
[2021-08-08] MEDS: oxyCODONE 5 MG Tablet PO (16:34)
[2021-08-08 17:00] LABS: Osmolality, Serum 315 mOsm/KG (275-295)
[2021-08-08 18:06] LABS: Bedside Glucose 403 mg/dL (70-110)
[2021-08-08 18:06] LABS: Bedside Glucose 257 mg/dL (70-110)
[2021-08-08 18:16] LABS: Bedside Glucose 237 mg/dL (70-110)
[2021-08-08] MEDS: 0.9% Normal Saline 1,000 ML 75 ML IV (18:24)
[2021-08-08] MEDS: 0.9% Saline Lock 10 ML Syringe IV (19:23)
[2021-08-08] MEDS: Amitriptyline 10 MG Tablet PO (21:38)
[2021-08-08] MEDS: Insulin Lispro 100 UNIT/ML INSULN.PEN SC (21:38)
[2021-08-08] MEDS: Atorvastatin Calcium 40 MG Tablet PO (21:38)
[2021-08-08 21:46] LABS: Bedside Glucose 410 mg/dL (70-110)
[2021-08-09] VITALS (7 sets, daily range): BP systolic 87–106; BP diastolic 62–81; PULSE 75–98; RESP 16–18; TEMP 36.6–36.8; O2SAT 97–99
[2021-08-09 04:48] LABS: Absolute Lymphocyte Count 3.87 X10^3/uL (0.83-4.51); Absolute Neutrophil Count 1.9 X10^3/uL (2.0-7.7); Basophil# 0.04 X10^3/uL; Basophil% 0.6 % (0-1); Eosinophil# 0.18 X10^3/uL; Eosinophils% 2.8 % (0-5); Hematocrit 35.3 % (37-47); Hemoglobin 12.2 g/dL (12.0-15.0); Lymphocyte # 3.87 X10^3/ul (0.83-4.51); Lymphocyte % 60.6 % (19-41); Mean Corp Hgb Conc 34.6 g/dL (32-36); Mean Corpuscular Volume 92.7 fL (81-99); Monocyte# 0.34 X10^3/uL; Monocyte% 5.3 % (0-10); NRBC Flagged by Analyzer 0 % (0-5); Neutrophil # 1.94 X10^3/uL (2.7-7.7); Neutrophil % 30.4 % (47-70); Platelet Count 165 K/mm3 (150-450); RBC Distribution Width SD 43.8 fl (35.1-43.9); Red Blood Count 3.81 M/mm3 (4.2-5.4); White Blood Count 6.4 K/mm3 (4.4-11.0)
[2021-08-09 05:32] LABS: Anion Gap 5 (5-15); BUN 10 mg/dL (7-18); BUN/Creat Ratio 12.2 RATIO (10-20); Calcium,Total 8.2 mg/dL (8.5-10.1); Chloride 105 mmol/L (98-107); Creatinine, Serum 0.82 mg/dL (0.55-1.02); EST Glomerular Filtration Rate 84 mL/min (>60); Est Glom Filt Rate - Afr Amer 102 mL/min (>60); Estimated Creatinine Clearance 68.78 ml/min; Glucose 289 mg/dL (74-106); Potassium 3.9 mmol/L (3.5-5.1); Sodium Level 138 mmol/L (136-145)
[2021-08-09] MEDS: Insulin Lispro 100 UNIT/ML INSULN.PEN SC ×2 (07:31→11:04)
[2021-08-09] MEDS: 0.9% Normal Saline 1,000 ML 75 ML IV (07:31)
[2021-08-09] MEDS: glipiZIDE 10 MG Tablet PO (07:33)
[2021-08-09] MEDS: metFORMIN HCl 500 MG Tablet PO (07:34)
[2021-08-09 07:41] LABS: Bedside Glucose 327 mg/dL (70-110)
[2021-08-09] MEDS: oxyCODONE 5 MG Tablet PO (11:02)
[2021-08-09] MEDS: Enoxaparin 40 MG/0.4 ML Syringe SC (11:03)
[2021-08-09 11:11] LABS: Bedside Glucose 321 mg/dL (70-110)
--- NOTE | 2021-08-09 11:40 | CASEMGMT ---
RN DIPAK Face to Face with patient for initial transition planning/care coordination assessment. RN CM introduced self and role at [facility]. Patient lying in bed, alert and oriented. Patient willing to participate in assessment and is able to answer all questions appropriately. Care providers, pharmacy, and demographics verified. Patient wishes to discharge home, denies need for home health at this time. Patient states she has no further needs or concerns at this time. CM to follow for discharge planning needs that may arise. PCP: [facility] Specialists: none, patient requesting information regarding Dr. Barlow, director of strategic sales, to discuss with PCP for referral, rack card provided. Patient states that PCP made referral to [facility] pharmacist Felisha Dennis and has appt with 08/13/21 at 2pm [facility]acy[facility] Insurance: [employer] Prescription Benefit: yes Living Will/HPOA: none LNOK: Aunt Living Arrangements: Patient lives with 15yo and 12yo children in a first floor apartment with no steps to enter. Transportation: self, aunt DME/HHC: patient states she has glucometer, supplies, insulin, and needles at home. Patient states that PCP sent new script for insulin and supplies. Patient denies previous HHC or SNF. Disposition Plan: Patient to discharge home with family support and follow-up plans in place. Yudith HILL, RN, CM
--- NOTE | 2021-08-09 13:59 | PCM.DC ---
Discharge Instructions Diet Discharge Diet: 1800 Calorie Control Diet Activity Discharge Activity: Return to Normal Activity Weight Bearing Status: Full weight bearing Follow Up Care Test Results: Test results from this visit will be discussed in further detail at your follow-up appointment, if applicable. Discharge Plan Admission Admit Date/Time: 08/08/21 15:14 Primary Reason for Your Visit: hypergylcemia Attending Provider: Demetris Dickey Primary Care Provider: Gwen Verdin Discharge Orders/Prescriptions Prescriptions: New Lantus Solostar U-100 Insulin 100 unit/mL (3 mL) Insulin Pen 35 units subcut BID Qty: 30 RF: 0 insulin aspart U-100 [Novolog Flexpen U-100 Insulin] 100 unit/mL (3 mL) insulin pen 45 unit subcut TIDCM Qty: 45 RF: 0 Continued alprazolam [Xanax] 1 MG tablet 1 mg PO DAILY PRN PRN (Reason: Anxiety) RF: 0 furosemide 40 MG tablet 40 mg PO DAILY PRN (Reason: fluid retention) RF: 0 amitriptyline 10 mg tablet 10 mg PO QHS RF: 0 promethazine 25 mg tablet 25 mg PO Q6H PRN PRN (Reason: Nausea) RF: 0 glipizide 5 mg tablet 10 mg PO BID RF: 0 oxycodone 5 mg capsule 5 mg PO Q6H PRN PRN (Reason: Pain) RF: 0 atorvastatin 40 mg tablet 40 mg PO QHS RF: 0 albuterol sulfate [Ventolin HFA] 90 mcg/actuation HFA aerosol inhaler 1 - 2 puff inhalation Q4H PRN PRN (Reason: Wheezing) Qty: 1 RF: 0 Discontinued Lantus Solostar U-100 Insulin 100 unit/mL (3 mL) Insulin Pen 36 unit SUBCUT QPM RF: 0 Referrals / Follow Up: Gwen Verdin MD [Primary Care Provider] - See Referral Note (office will call for appointment) Disposition Disposition (needs filled in before D/C Order can be placed): Home, Self Care
--- NOTE | 2021-08-09 14:09 | CASEMGMT ---
Social Work SW met w/pt to offer support, in light of recently losing her job. Pt states she was working at [employer], and her employment was terminated. She states she was told she was fired due to her diabetes, and that she is a liability. Pt states she did miss 10 days of work due to getting Covid at [facility], not due to her diabetes. Pt states she was told by her doctor to consider applying for short term disability. Pt plans to possibly contact an truck loader overhead crane as she feels she was fired unjustly. SW explained that short term disability is usually through a person's employer, or if they are paying into an insurance such as [employer]. SW educated pt that she can apply for disability through Social Security. Pt states she does not really want to do this however as she wants to work. 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 She states plans to return to work once her health is better; pt states has two children and needs to work. Pt states that her blood sugar being out of control is new for her. Pt does plan to follow up w/the marketing traffic coordinator to help her understand what is going on. SW offered support to pt. SW offered resources to pt, pt is aware of the resources already in the area. SW also asked pt about history of depression and anxiety, pt states is managing well with her anxiety and depression. No further needs anticipated at this time, pt home at discharge. SW remains available for support to pt as needed. JESÚS Brown
--- NOTE | 2021-08-09 19:46 | DS.PCM_ITS ---
Providers Date of Admission: 08/08/21 Date of Discharge: 08/09/21 Primary Care Physician: Dr. Gwen Verdin MD Reason For Visit: HHS Diagnosis Discharge Diagnosis (1) Hyperglycemia due to diabetes mellitus: Status: Acute Code(s): E11.65 - Type 2 diabetes mellitus with hyperglycemia (2) Hyperosmolar hyperglycemic state (HHS): Status: Acute Code(s): E11.00 - Type 2 diabetes mellitus with hyperosmolarity without nonketotic hyperglycemic-hyperosmolar coma (N[facility]HC); E11.65 - Type 2 diabetes mellitus with hyperglycemia Plan: 1. Hyperosmolar hyperglycemic nonketotic syndrome #2 type 2 diabetes-uncontrolled #3 elevated creatinine #4 hyperlipidemia Medications at Discharge Home Medications alprazolam [Xanax] 1 mg PO DAILY PRN PRN 11/24/17 furosemide 40 mg PO DAILY PRN 06/11/19 amitriptyline 10 mg PO QHS 11/22/20 glipizide 10 mg PO BID 11/23/20 promethazine 25 mg PO Q6H PRN PRN 11/23/20 atorvastatin 40 mg PO QHS 12/26/20 oxycodone 5 mg PO Q6H PRN PRN 12/26/20 albuterol sulfate [Ventolin HFA] 1 - 2 puff INHALATION Q4H PRN PRN #1 device 07/07/21 insulin aspart U-100 [Novolog Flexpen U-100 Insulin] 45 unit SUBCUT TIDCM #45 ml 08/09/21 insulin glargine [Lantus Solostar U-100 Insulin] 35 units SUBCUT BID #30 ml 08/09/21 Hospital Course Operations None Procedures None Summary of Care Provided Minutes Spent on Discharge: 31 Hospital Course: This 36-year-old white female was seen in the emergency room at [facility] [place] with a chief complaint of elevated blood sugar, she has type 2 diabetes. Work-up in the emergency room feels a normal CBC, patient's chemistry panel showed a glucose of 832, patient is anion gap was not elevated, creatinine was elevated at 1.21. Patient's urinalysis did not indicate a urinary tract infection, patient's sodium corrected for elevated glucose was 137. Patient was admitted to the ICU, she was placed on insulin drip and given IV fluids, her blood sugars responded and were lower at the time of discharge. On 08/09/2021, patient was seen and examined: On examination she appeared in good health and spirits, she does not appear to be in any distress. Vital signs as documented. Skin warm and dry and without overt rashes. Neck without JVD, thyroid appears normal, trachea is midline, neck is supple. Lungs clear, normal air movement was noted. Heart exam notable for regular rhythm, normal sounds and absence of murmurs, rubs or gallops. Abdomen unremarkable and without evidence of organomegaly, masses, or abdominal aortic enlargement, bowel sounds are present in all 4 quadrants, no abdominal tenderness was noted. Extremities nonedematous, no cyanosis was noted, no clubbing was noted. Neuro: Cranial nerves II through XII are grossly intact, no focal motor deficits were noted, sensation to light touch and pinprick is intact, motor exam 5/5 throughout. Psych: Patient is alert and oriented x3, she does not appear anxious or depressed, she does not appear agitated. Patient was discharged home in stable condition on 08/09/2021 Weight / BMI Weight Weight: 86.1 kg Body Mass Index (BMI) 36.3 ABG / Lab / Microbiology Data Result Diagrams: 08/09/21 04:30 08/09/21 04:30 Laboratory: Laboratory Results - last 24 hr 08/08/21 21:34: POC Glucose 410 H 08/09/21 04:30: WBC 6.4, RBC 3.81 L, Hgb 12.2, Hct 35.3 L, MCV 92.7, MCH 32.0, MCHC 34.6, RDW Std Deviation 43.8, RDW Coeff of [place] 13.0, Plt Count 165, MPV 11 .0, Immature Gran % (Auto) 0.300, Neut % (Auto) 30.4 L, Lymph % (Auto) 60.6 H, [place] % (Auto) 5.3, Eos % (Auto) 2.8, Baso % (Auto) 0.6, Absolute Neuts (auto) 1.9 L, Absolute Lymphs (auto) 3.87, Nucleated RBC % 0 08/09/21 04:30: Sodium 138, Potassium 3.9, Chloride 105, Carbon Dioxide 28.0, Anion Gap 5, BUN 10, Creatinine 0.82, Estim Creat Clear Calc 68.78, Est GFR (MDRD) Af Amer 102, Est GFR (MDRD) Non-Af 84, BUN/Creatinine Ratio 12.2, Glucose 289 H, Calcium 8.2 L 08/09/21 07:30: POC Glucose 327 H 08/09/21 11:01: POC Glucose 321 H Microbiology: Microbiology 08/08/21 13:48 Urine, Clean Catch Urine Culture - Preliminary Gram negative lduwig Gram negative ludwig#2 D/C Instructions Discharge Diet: 1800 Calorie Control Diet Weight Bearing Status: Full weight bearing Meaningful Use Info Meaningful Use Diagnoses (Choose all that apply): None applicable Discharge Plan Admission Admit Date/Time: 08/08/21 15:14 Primary Reason for Your Visit: hypergylcemia Attending Provider: Demetris Dickey Primary Care Provider: Gwen Verdin Discharge Orders/Prescriptions Prescriptions: New Lantus Solostar U-100 Insulin 100 unit/mL (3 mL) Insulin Pen 35 units subcut BID Qty: 30 RF: 0 insulin aspart U-100 [Novolog Flexpen U-100 Insulin] 100 unit/mL (3 mL) insulin pen 45 unit subcut TIDCM Qty: 45 RF: 0 Continued alprazolam [Xanax] 1 MG tablet 1 mg PO DAILY PRN PRN (Reason: Anxiety) RF: 0 furosemide 40 MG tablet 40 mg PO DAILY PRN (Reason: fluid retention) RF: 0 amitriptyline 10 mg tablet 10 mg PO QHS RF: 0 promethazine 25 mg tablet 25 mg PO Q6H PRN PRN (Reason: Nausea) RF: 0 glipizide 5 mg tablet 10 mg PO BID RF: 0 oxycodone 5 mg capsule 5 mg PO Q6H PRN PRN (Reason: Pain) RF: 0 atorvastatin 40 mg tablet 40 mg PO QHS RF: 0 albuterol sulfate [Ventolin HFA] 90 mcg/actuation HFA aerosol inhaler 1 - 2 puff inhalation Q4H PRN PRN (Reason: Wheezing) Qty: 1 RF: 0 Discontinued Lantus Solostar U-100 Insulin 100 unit/mL (3 mL) Insulin Pen 36 unit SUBCUT QPM RF: 0 Referrals / Follow Up: Gwen Verdin MD [Primary Care Provider] - See Referral Note (office will call for appointment) Disposition Disposition (needs filled in before D/C Order can be placed): Home, Self Care Charges/Coding Visit Charges Inpatient E&M: 52394 Disch Hosp
== END 2021-08-09 14:38 | disposition home or self-care (01) | DRG 420 ==
LOC: ED 14:56 → ICU 15:22
PROVIDERS: Admitting Provider Student in an Organized Health Care Education/Training Program; Emergency Provider Emergency Medicine; PCP Internal Medicine; Visit Provider Internal Medicine
DX: E11.00 Type 2 diabetes mellitus with hyperosmolarity without nonketotic hyperglycemic-hyperosmolar coma (NKHHC) (principal); E87.1 Hypo-osmolality and hyponatremia; E11.65 Type 2 diabetes mellitus with hyperglycemia; Z79.4 Long term (current) use of insulin; E78.5 Hyperlipidemia, unspecified; E86.0 Dehydration; F41.9 Anxiety disorder, unspecified; Z79.1 Long term (current) use of non-steroidal anti-inflammatories (NSAID); R35.0 Frequency of micturition; R94.4 Abnormal results of kidney function studies; Z79.84 Long term (current) use of oral hypoglycemic drugs; Z79.899 Other long term (current) drug therapy
CPT/HCPCS: 80048; 80053; 81001; 82009; 82962; 83690; 83930; 85025; 87086; 87088; 97802; 99284; J7030; A4216; J2405

== ENCOUNTER 2021-10-07 15:59 | Emergency (ER) | payer MEDICAID, SELFPAY ==
[2021-10-07 15:59] VITALS: BP 137/94; PULSE 122; RESP 16; TEMP 36.6; O2SAT 98; BMI 28.9
--- NOTE | 2021-10-07 16:13 | CT_ITS ---
EXAM: CT ABDOMEN AND PELVIS WITHOUT INTRAVENOUS CONTRAST CLINICAL INDICATION: kidney stone TECHNIQUE: Helically acquired images were obtained of the abdomen and pelvis without intravenous contrast. This CT exam was performed using one or more of the following dose reduction techniques: automated exposure control, adjustment of the mA and/or kV according to patient size, and/or use of iterative reconstruction technique. This report was created using [employer] report generation technology. COMPARISON: 12/26/2020 FINDINGS: LOWER THORAX: Unremarkable. Lung bases are clear. No cardiomegaly. No significant pericardial effusion. ABDOMEN: LIVER: There is diffuse decreased attenuation in the liver compatible with fatty infiltration. GALLBLADDER AND BILE DUCTS: There are surgical clips from a cholecystectomy. No intra- or extrahepatic biliary ductal dilation. PANCREAS: Unremarkable. No focal cystic mass. SPLEEN: Unremarkable. Normal size without focal cystic or solid mass. ADRENALS: Unremarkable. No nodules. KIDNEYS AND URETERS: There is minimal inflammation in the perinephric space of the lower pole of the right kidney. There is a 5 mm stone at the right UVJ. There is no appreciable hydronephrosis or hydroureter. STOMACH AND BOWEL: There are fluid-filled loops of small bowel which may represent enteritis. No stomach or bowel distention. PELVIS: APPENDIX: No evidence of acute appendicitis. BLADDER: Unremarkable. REPRODUCTIVE: Unremarkable as visualized. No mass. ABDOMEN and PELVIS: INTRAPERITONEAL SPACE: Unremarkable. No ascites or other fluid collection. No free air. BONES/JOINTS: Unremarkable. No suspicious lytic or blastic abnormality. SOFT TISSUES: Unremarkable. No discrete abdominal or pelvic wall hernia. VASCULATURE: Unremarkable. Abdominal aorta is non-dilated. LYMPH NODES: Unremarkable. No enlarged lymph nodes. IMPression: Obstruction of the right collecting system due to a 5 mm stone at the UVJ. There is some minimal perinephric inflammation on the lower pole the right kidney. There is no appreciable hydronephrosis or hydroureter seen. Electronically Signed: Cole Yu MD at 17:04 EDT , CT/Abdomen/Pelvis without Cont IMPRESSION: undefined
--- NOTE | 2021-10-07 16:18 | EX.ED.DYSGE1 ---
HPI History of Present Illness Chief Complaint: Abd Pain Informant: patient Narrative Narrative: 36-year-old female presenting to the emergency department for the evaluation of abdominal pain and vomiting. Patient states that she woke this morning in her usual state of health and was feeling fine until around 11:00 when she developed a sharp pain in her right lower quadrant. She states that it was severe and then developed pain in her epigastrium. She associated this with vomiting bile and now dry heaves. She denies any change in bowel habits and no fevers. She feels that this is different than kidney stone pain. No history of pancreatitis. She has had prior cholecystectomy and hysterectomy. [facility] Medical History (Updated 10/07/21 @ 17:[address] Rashid Mace, DO) Anxiety Asthma Chest pain Depression Diabetes DVT (deep venous thrombosis) Kidney stones Knee arthropathy Migraines Ureteral stone Home Medications alprazolam [Xanax] 1 mg PO DAILY PRN PRN 11/24/17 [History Last Taken 11/23/20] furosemide 40 mg PO DAILY PRN 06/11/19 [History Last Taken 11/23/20] amitriptyline 10 mg PO QHS 11/22/20 [History Last Taken 11/22/20] glipizide 10 mg PO BID 11/23/20 [History Last Taken 11/23/20] promethazine 25 mg PO Q6H PRN PRN 11/23/20 [History Last Taken Unknown] atorvastatin 40 mg PO QHS 12/26/20 [History Last Taken Unknown] oxycodone 5 mg PO Q6H PRN PRN 12/26/20 [History Last Taken Unknown] albuterol sulfate [Ventolin HFA] 1 - 2 puff INHALATION Q4H PRN PRN #1 device 07/07/21 [Rx Last Taken Unknown] insulin aspart U-100 [Novolog Flexpen U-100 Insulin] 45 unit SUBCUT TIDCM #45 ml 08/09/21 [Rx Last Taken Unknown] insulin glargine [Lantus Solostar U-100 Insulin] 35 units SUBCUT BID #30 ml 08/09/21 [Rx Last Taken Unknown] ondansetron 4 mg PO Q6H PRN PRN #15 tab 10/07/21 [Rx Last Taken Unknown] oxycodone-acetaminophen 1 tab PO Q6H PRN PRN 5 Days #20 tablet 10/07/21 [Rx Last Taken Unknown] Allergy/AdvReac Type Severity Reaction Status Date / Time Penicillins Allergy Hives Verified 10/07/21 16:01 azithromycin [From Zithromax] AdvReac Vomiting Verified 10/07/21 16:01 doxycycline AdvReac Other Verified 10/07/21 16:01 latex AdvReac Rash Verified 10/07/21 16:01 minocycline [Minocycline] AdvReac Other Verified 10/07/21 16:01 NSAIDS (Non-Steroidal AdvReac Bleeding Verified 10/07/21 16:01 Anti-Inflamma tramadol AdvReac Shortness Verified 10/07/21 16:01 of breath Family History Mother Diabetes Surgical History H/O: hysterectomy History of cholecystectomy Social History Smoking Status: Never smoker ROS ROS ED Constitutional Constitutional ED: Denies chills, fever(s) or weight loss Eyes Eyes: Denies change in vision or diplopia ENT ENT ED: Denies ear pain, rhinorrhea or sore throat Cardiovascular Cardiovascular: Denies chest pain, orthopnea, palpitations or racing heartbeat Respiratory/Chest Respiratory/Chest: Denies cough, dyspnea or orthopnea Gastrointestinal Gastrointestinal: Reports abdominal pain, diarrhea, nausea and vomiting Genitourinary Genitourinary ED: Denies dysuria, hematuria or urinary frequency Musculoskeletal Musculoskeletal: Denies arthralgias or myalgias Integumentary Denies abscess or rash Neurologic Neurologic: Denies headache(s) or weakness Psychiatric Psychiatric: Denies anxiety, depression, suicidal ideation or suicidal thoughts Endocrine Endocrinology: Denies polydipsia, polyphagia or polyuria Allergic/Immunologic Allergic/Immunologic ED: Denies mouth swelling, tongue swelling or urticaria EXAM Physical Exam Const Vital Signs: 10/07/21 15:59 Temperature 97.8 F Temperature Source Temporal Pulse Rate 122 H Respiratory Rate 16 Blood Pressure 137/94 H Blood Pressure Mean 108 Pulse Ox 98 Oxygen Delivery Method Room Air Positive well nourished, well developed and obese General Appearance ED: well developed Nutritional Appearance: obese HEENT Reports normocephalic, head/scalp atraumatic, TM's clear and moist mucous membranes Negative for trauma Tympanic Membrane ED: Yes TM's clear Eyes PERRL and EOMs intact bilaterally Neck no lymphadenopathy, supple and no JVD Resp normal respiratory effort and clear to auscultation bilaterally Cardio regular rate, regular rhythm and no murmurs GI Auscultation: normoactive bowel sounds Palpation: soft and tender other (diffuse); Negative for guarding or rebound tenderness present Back/Spine no CVA tenderness and normal ROM Extremity normal to inspection General Extremety ED: Negative for edema General Extremity: Negative for edema Neuro oriented x3 and CN's II-XII intact bilaterally Sensorium / Orientation: alert Motor Exam: strength 5/5 throughout Psych mental status grossly normal Mood & Affect: Negative for depressed or tearful Skin no rashes or lesions noted and no wounds MDM MDM MDM Narrative Medical decision making narrative: Emergency department evaluation included a CBC and a CMP was essentially negative with a glucose of 190. BUN is 7 with a gap of 6. Creatinine normal at 0.[address] ab pelvis demonstrates a distal right UVJ stone with mild perinephric stranding. Patient received Zofran morphine Toradol and fluids. She is doing better. Patient will be discharged home with instructions to follow-up with your urologist. I will prescribe Percocet and Zofran. Lab Data Attestation: I reviewed the patient's lab results. Labs: Laboratory Results - last 24 hr 10/07/21 10/07/21 10/07/21 16:30 16:30 16:30 WBC 8.1 RBC 4.20 Hgb 13.2 Hct 39.6 MCV 94.3 MCH 31.4 MCHC 33.3 RDW Std Deviation 43.2 RDW Coeff of [place] 12.4 Plt Count 204 MPV 10.8 Immature Gran % (Auto) 0.200 Neut % (Auto) 59.6 Lymph % (Auto) 31.8 [place] % (Auto) 6.5 Eos % (Auto) 1.4 Baso % (Auto) 0.5 Absolute Neuts (auto) 4.8 Absolute Lymphs (auto) 2.58 Nucleated RBC % 0 Sodium 138 Potassium 4.0 Chloride 105 Carbon Dioxide 27.0 Anion Gap 6 BUN 7 Creatinine 0.91 Estim Creat Clear Calc 61.98 Est GFR (MDRD) Af Amer 90 Est GFR (MDRD) Non-Af 75 BUN/Creatinine Ratio 7.7 L Glucose 190 H Calcium 9.5 Total Bilirubin 0.40 AST 37 ALT 67 H Alkaline Phosphatase 103 Total Protein 8.1 Albumin 3.2 Globulin 4.9 H Albumin/Globulin Ratio 0.7 L Lipase 51 L Urine Color Yellow Urine Clarity Clear Urine pH 6.0 Ur Specific [place] 1.020 Urine Protein 30 H Urine Glucose (UA) Normal Urine Ketones Negative Urine Occult Blood 10 H Urine Nitrite Negative Urine Bilirubin Negative Urine Urobilinogen Normal Ur Leukocyte Esterase 100 H Urine RBC 0 SEEN Urine WBC 0-5 SEEN Ur Squamous Epith Cells 0 SEEN Urine Bacteria 0 SEEN Urine Mucus 0 SEEN Radiography Diagnostic Testing: Clinical Impression(s) from Imaging Studies Abdomen/Pelvis CT 10/07/21 16:13 IMPRESSION: undefined Discharge Plan Triage Chief Complaint: Abd Pain ED Provider: Rashid Maec Dx/Rx/DC Orders Clinical Impression: Abdominal pain, Vomiting, Diabetes mellitus, Renal colic on right side, Right ureteral stone Instructions: ED Kidney Stone w/ Colic Prescriptions: New oxycodone-acetaminophen [oxycodone-acetaminophen] 1 TABLET tablet 1 tab PO Q6H PRN PRN (Reason: pain) 5 Days Qty: 20 RF: 0 ondansetron [ondansetron] 4 MG tablet 4 mg PO Q6H PRN PRN (Reason: Nausea) Qty: 15 RF: 0 No Action alprazolam [Xanax] 1 MG tablet 1 mg PO DAILY PRN PRN (Reason: Anxiety) RF: 0 furosemide 40 MG tablet 40 mg PO DAILY PRN (Reason: fluid retention) RF: 0 amitriptyline 10 mg tablet 10 mg PO QHS RF: 0 promethazine 25 mg tablet 25 mg PO Q6H PRN PRN (Reason: Nausea) RF: 0 glipizide 5 mg tablet 10 mg PO BID RF: 0 oxycodone 5 mg capsule 5 mg PO Q6H PRN PRN (Reason: Pain) RF: 0 atorvastatin 40 mg tablet 40 mg PO QHS RF: 0 albuterol sulfate [Ventolin HFA] 90 mcg/actuation HFA aerosol inhaler 1 - 2 puff inhalation Q4H PRN PRN (Reason: Wheezing) Qty: 1 RF: 0 Lantus Solostar U-100 Insulin 100 unit/mL (3 mL) Insulin Pen 35 units subcut BID Qty: 30 RF: 0 insulin aspart U-100 [Novolog Flexpen U-100 Insulin] 100 unit/mL (3 mL) insulin pen 45 unit subcut TIDCM Qty: 45 RF: 0 Primary Care Provider: Gwen Verdin Referrals: Matias Mcmullen MD [STAFF PHYSICIAN] - As soon as possible Gwen Verdin MD [Primary Care Provider] - Disposition Disposition: Home, Self Care
[2021-10-07] MEDS: 0.9% Normal Saline 1,000 ML 1000 ML IV (16:30)
[2021-10-07] MEDS: Ondansetron 4 MG/2 ML Vial IV ×2 (16:30→17:32)
[2021-10-07] MEDS: Morphine 4 MG/ML Syringe IV ×2 (16:30→17:32)
[2021-10-07 16:46] LABS: Bacteria 0 SEEN /hpf (None Seen); Color, Urine Yellow (Yellow); Glucose, Dipstick Normal (Normal); Ketone-Dipstick Negative (Negative); Leukocyte Esterase-Dipstick 100 /ul (Negative); Mucous, Urine 0 SEEN /hpf (<or=2+); Nitrite-Dipstick Negative (Negative); Occult Blood-Urine 10 /ul (Negative); Protein-Dipstick 30 mg/dl (Negative); Red Blood Cells-Urine 0 SEEN /hpf (0-5); Squamous Epithelial Cells - UA 0 SEEN /hpf (5-10); Urine Bilirubin Dipstick Negative (Negative); Urine Clarity Clear (Clear); Urine Urobilinogen Normal (Normal)
[2021-10-07 16:58] LABS: Absolute Lymphocyte Count 2.58 X10^3/uL (0.83-4.51); Absolute Neutrophil Count 4.8 X10^3/uL (2.0-7.7); Basophil# 0.04 X10^3/uL; Basophil% 0.5 % (0-1); Eosinophil# 0.11 X10^3/uL; Eosinophils% 1.4 % (0-5); Hematocrit 39.6 % (37-47); Hemoglobin 13.2 g/dL (12.0-15.0); Lymphocyte # 2.58 X10^3/ul (0.83-4.51); Lymphocyte % 31.8 % (19-41); Mean Corp Hgb Conc 33.3 g/dL (32-36); Mean Corpuscular Hgb 31.4 pg (27.0-32.0); Mean Corpuscular Volume 94.3 fL (81-99); Mean Platelet Vol. 10.8 fl (6.2-12.0); Monocyte# 0.53 X10^3/uL; Monocyte% 6.5 % (0-10); NRBC Flagged by Analyzer 0 % (0-5); Neutrophil # 4.83 X10^3/uL (2.7-7.7); Neutrophil % 59.6 % (47-70); Platelet Count 204 K/mm3 (150-450); RBC Distribution Width CV 12.4 % (11.6-14.6); RBC Distribution Width SD 43.2 fl (35.1-43.9); White Blood Count 8.1 K/mm3 (4.4-11.0)
[2021-10-07 17:04] LABS: ALB/GLOB Ratio 0.7 RATIO (0.9-2.4); AST(SGOT) 37 U/L (15-37); Alanine Aminotransfer ALT/SGPT 67 U/L (13-56); Albumin, Serum 3.2 g/dL (3.2-5.0); Alkaline Phosphatase 103 U/L (45-117); Anion Gap 6 (5-15); BUN 7 mg/dL (7-18); BUN/Creat Ratio 7.7 RATIO (10-20); Calcium,Total 9.5 mg/dL (8.5-10.1); Chloride 105 mmol/L (98-107); Creatinine, Serum 0.91 mg/dL (0.55-1.02); EST Glomerular Filtration Rate 75 mL/min (>60); Est Glom Filt Rate - Afr Amer 90 mL/min (>60); Estimated Creatinine Clearance 61.98 ml/min; Globulin 4.9 g/dL (2.2-4.2); Glucose 190 mg/dL (74-106); Lipase 51 U/L (73-393); Protein, Total 8.1 g/dL (6.4-8.2); Sodium Level 138 mmol/L (136-145)
[2021-10-07 17:07] LABS: White Blood Cells 0-5 SEEN /hpf (0-5)
[2021-10-07] MEDS: Ketorolac 30 MG/ML Syringe IV (17:32)
== END 2021-10-07 17:45 | disposition home or self-care (01) ==
PROVIDERS: Emergency Provider Emergency Medicine; PCP Internal Medicine; Visit Provider Emergency Medicine
DX: N20.1 Calculus of ureter (principal); E11.9 Type 2 diabetes mellitus without complications; Z79.4 Long term (current) use of insulin; R10.13 Epigastric pain; E66.9 Obesity, unspecified; F32.A Depression, unspecified; F41.9 Anxiety disorder, unspecified; Z68.28 Body mass index [BMI] 28.0-28.9, adult; Z90.49 Acquired absence of other specified parts of digestive tract; Z90.710 Acquired absence of both cervix and uterus; Z79.84 Long term (current) use of oral hypoglycemic drugs; Z79.899 Other long term (current) drug therapy
CPT/HCPCS: 74176; 80053; 81001; 83690; 85025; 96361; 96374; 96375; 96376; 99282; J7030; A4216; J2405

== ENCOUNTER 2021-10-08 00:34 | Observation (INO) | payer MEDICAID, SELFPAY ==
[2021-10-08] VITALS (14 sets, daily range): BP systolic 103–142; BP diastolic 49–86; PULSE 94–125; RESP 15–18; TEMP 36.5–37.5; O2SAT 92–99; BMI 39.6; BMI 38.9; BMI 31.2
--- NOTE | 2021-10-08 00:55 | ED.VIS.FEGU ---
HPI HPI - Female History of Present Illness Chief Complaint: Flank Pain Narrative Narrative: 36-year-old female presenting for the second time today for right flank pain/right pelvic pain. She was diagnosed with a 5 mm distal UVJ stone earlier. She states she was under control with her pain with morphine and Zofran and was able to go home for a couple of hours and get some sleep. She has had nausea and vomiting since then is not able to hold down fluids or food. Patient states she had Zofran and Phenergan at home and this is not helping. She also has oxycodone at home which she was prescribed earlier which is not controlling her pain. Previously has had to have procedures by Dr. Mcmullen due to nonpassage of kidney stones. She states she has an irregular ureteral size and this is why she does not pass stone spontaneously. [facility] Medical History Anxiety Asthma Chest pain Depression Diabetes DVT (deep venous thrombosis) Kidney stones Knee arthropathy Migraines Ureteral stone Home Medications alprazolam [Xanax] 1 mg PO DAILY PRN PRN 11/24/17 [History Last Taken 11/23/20] furosemide 40 mg PO DAILY PRN 06/11/19 [History Last Taken 11/23/20] amitriptyline 10 mg PO QHS 11/22/20 [History Last Taken 11/22/20] glipizide 10 mg PO BID 11/23/20 [History Last Taken 11/23/20] promethazine 25 mg PO Q6H PRN PRN 11/23/20 [History Last Taken Unknown] atorvastatin 40 mg PO QHS 12/26/20 [History Last Taken Unknown] oxycodone 5 mg PO Q6H PRN PRN 12/26/20 [History Last Taken Unknown] albuterol sulfate [Ventolin HFA] 1 - 2 puff INHALATION Q4H PRN PRN #1 device 07/07/21 [Rx Last Taken Unknown] insulin aspart U-100 [Novolog Flexpen U-100 Insulin] 45 unit SUBCUT TIDCM #45 ml 08/09/21 [Rx Last Taken Unknown] insulin glargine [Lantus Solostar U-100 Insulin] 35 units SUBCUT BID #30 ml 08/09/21 [Rx Last Taken Unknown] ondansetron 4 mg PO Q6H PRN PRN #15 tab 10/07/21 [Rx Last Taken Unknown] oxycodone-acetaminophen 1 tab PO Q6H PRN PRN 5 Days #20 tablet 10/07/21 [Rx Last Taken Unknown] Allergy/AdvReac Type Severity Reaction Status Date / Time Penicillins Allergy Hives Verified 10/08/21 00:38 azithromycin [From Zithromax] AdvReac Vomiting Verified 10/08/21 00:38 doxycycline AdvReac Other Verified 10/08/21 00:38 latex AdvReac Rash Verified 10/08/21 00:38 minocycline [Minocycline] AdvReac Other Verified 10/08/21 00:38 NSAIDS (Non-Steroidal AdvReac Bleeding Verified 10/08/21 00:38 Anti-Inflamma tramadol AdvReac Shortness Verified 10/08/21 00:38 of breath Family History Mother Diabetes Surgical History H/O: hysterectomy History of cholecystectomy Social History Smoking Status: Never smoker ROS ROS ED Constitutional Constitutional ED: Denies chills or fever(s) Eyes Eyes: Denies blurry vision or diplopia ENT ENT ED: Denies rhinorrhea or sore throat Cardiovascular Cardiovascular: Denies chest pain or palpitations Respiratory/Chest Respiratory/Chest: Denies cough, dyspnea or stridor Gastrointestinal Gastrointestinal: Reports abdominal pain, nausea and vomiting; Denies constipation or diarrhea Genitourinary Genitourinary ED: Denies dysuria or hematuria Musculoskeletal Musculoskeletal: Denies myalgias Integumentary Denies abscess or rash Neurologic Neurologic: Denies headache(s) or weakness Psychiatric Psychiatric: Denies anxiety or depression EXAM Physical Exam Const Vital Signs: 10/08/21 00:35 Temperature 97.7 F L Temperature Source Oral Pulse Rate 125 H Respiratory Rate 18 Blood Pressure 142/85 H Blood Pressure Mean 104 Pulse Ox 97 Oxygen Delivery Method Room Air Positive well nourished General Appearance ED: NAD; Negative for pallor HEENT Reports moist mucous membranes Negative for trauma Eyes PERRL and EOMs intact bilaterally Resp normal respiratory effort and clear to auscultation bilaterally Cardio regular rate and regular rhythm GI GI Narrative: Tenderness palpation right pelvic and right lower quadrant region Palpation: tender Extremity normal to inspection and full ROM General Extremety ED: Negative for edema General Extremity: Negative for edema Neuro oriented x3 Sensorium / Orientation: alert Psych mental status grossly normal Skin no rashes or lesions noted General Skin Exam: Negative for jaundice or pallor MDM MDM MDM Narrative Medical decision making narrative: IV was established and patient given morphine and Zofran for pain. She is also given a liter of IV fluids due to nausea and vomiting. Will discuss with the hospitalist for admission due to intractable pain. Reviewed her previous blood work and this was fairly unremarkable. Urinalysis negative for infection. Patient was discussed with the hospitalist for admission who will consult Dr. Mcmullen. Impression: 1. 5 mm right ureteral stone 2. Intractable flank pain Discharge Plan Triage Chief Complaint: Flank Pain ED Provider: Horacio Johnson Dx/Rx/DC Orders Prescriptions: No Action alprazolam [Xanax] 1 MG tablet 1 mg PO DAILY PRN PRN (Reason: Anxiety) RF: 0 furosemide 40 MG tablet 40 mg PO DAILY PRN (Reason: fluid retention) RF: 0 amitriptyline 10 mg tablet 10 mg PO QHS RF: 0 promethazine 25 mg tablet 25 mg PO Q6H PRN PRN (Reason: Nausea) RF: 0 glipizide 5 mg tablet 10 mg PO BID RF: 0 oxycodone 5 mg capsule 5 mg PO Q6H PRN PRN (Reason: Pain) RF: 0 atorvastatin 40 mg tablet 40 mg PO QHS RF: 0 albuterol sulfate [Ventolin HFA] 90 mcg/actuation HFA aerosol inhaler 1 - 2 puff inhalation Q4H PRN PRN (Reason: Wheezing) Qty: 1 RF: 0 Lantus Solostar U-100 Insulin 100 unit/mL (3 mL) Insulin Pen 35 units subcut BID Qty: 30 RF: 0 insulin aspart U-100 [Novolog Flexpen U-100 Insulin] 100 unit/mL (3 mL) insulin pen 45 unit subcut TIDCM Qty: 45 RF: 0 oxycodone-acetaminophen [oxycodone-acetaminophen] 1 TABLET tablet 1 tab PO Q6H PRN PRN (Reason: pain) 5 Days Qty: 20 RF: 0 ondansetron [ondansetron] 4 MG tablet 4 mg PO Q6H PRN PRN (Reason: Nausea) Qty: 15 RF: 0 Primary Care Provider: Gwen Verdin Referrals: Gwen Verdin MD [Primary Care Provider] -
--- NOTE | 2021-10-08 01:00 | PCM.HP.STD ---
[facility] - General General Date of Admission: 10/08/21 HPI Narrative VEL FARR, is a 36 F with a significant history of diabetes mellitus; anxiety; ADHD as well as recurrent kidney stone who presents at the emergency department 2 times in the past 24 hours for right pelvic pain. Associated with her symptoms is nausea and vomiting. She has anorexia. Lying flat and taking a deep breath worsens the pain. Morphine that she received at emergency department helped with the pain. She described the pain as stabbing. The pain radiates to her entire abdomen. Her symptoms started same day of initial presentation. With her first presentation she was diagnosed with a kidney stones. At her first ED visit, she received morphine and Zofran at the emergency department. She was discharge home on Percocet and Zofran. When she went home after the first ED visit her pain reoccurred. Percocet could not control her pain and Zofran could not control her nausea and vomiting. Subsequently she returned to the emergency department for the second time. She report that with her recurrent kidney stones she have had multiple urological procedure including stenting; cystoscopy and lithotripsy. Reportedly she has small-diameter of her urine passageways and it is difficult for her to pass a kidney stone. She reports dysuria; and decreased frequency and decreased urine amounts. About 2 days before her presentation she had a fever of 101.8F that abated with Tylenol. [facility] Medical History Anxiety Asthma Chest pain Depression Diabetes DVT (deep venous thrombosis) Kidney stones Knee arthropathy Migraines Ureteral stone Home Medications alprazolam [Xanax] 1 mg PO DAILY PRN PRN 11/24/17 [History Last Taken 11/23/20] furosemide 40 mg PO DAILY PRN 06/11/19 [History Last Taken 11/23/20] amitriptyline 10 mg PO QHS 11/22/20 [History Last Taken 11/22/20] atorvastatin 40 mg PO QHS 12/26/20 [History Last Taken Unknown] albuterol sulfate [Ventolin HFA] 1 - 2 puff INHALATION Q4H PRN PRN #1 device 07/07/21 [Rx Last Taken Unknown] insulin aspart U-100 [Novolog Flexpen U-100 Insulin] 45 unit SUBCUT TIDCM #45 ml 08/09/21 [Rx Last Taken Unknown] ondansetron 4 mg PO Q6H PRN PRN #15 tab 10/07/21 [Rx Last Taken Unknown] oxycodone-acetaminophen 1 tab PO Q6H PRN PRN 5 Days #20 tablet 10/07/21 [Rx Last Taken Unknown] dextroamphetamine-amphetamine 5 mg PO QHS 10/08/21 [History Last Taken Unknown] dextroamphetamine-amphetamine 10 mg PO DAILY 10/08/21 [History Last Taken Unknown] hydrochlorothiazide 12.5 mg PO DAILY 10/08/21 [History Last Taken Unknown] insulin glargine [Lantus Solostar U-100 Insulin] 30 units SUBCUT BID 10/08/21 [History Last Taken Unknown] Allergy/AdvReac Type Severity Reaction Status Date / Time Penicillins Allergy Hives Verified 10/08/21 00:38 azithromycin [From Zithromax] AdvReac Vomiting Verified 10/08/21 00:38 doxycycline AdvReac Other Verified 10/08/21 00:38 latex AdvReac Rash Verified 10/08/21 00:38 minocycline [Minocycline] AdvReac Other Verified 10/08/21 00:38 NSAIDS (Non-Steroidal AdvReac Bleeding Verified 10/08/21 00:38 Anti-Inflamma tramadol AdvReac Shortness Verified 10/08/21 00:38 of breath Family History Mother Diabetes Surgical History H/O: hysterectomy History of cholecystectomy Social History Smoking Status: Never smoker ROS ROS Narrative Pertinent positives and pertinent negatives as noted in HPI. All other systems were reviewed and are negative. Vital Signs Vital Signs Vital Signs: 10/08/21 00:35 Temperature 97.7 F L Temperature Source Oral Pulse Rate 125 H Respiratory Rate 18 Blood Pressure 142/85 H Blood Pressure Mean 104 Pulse Ox 97 Oxygen Delivery Method Room Air Weight Weight: 92 kg Body Mass Index (BMI) 39.6 Physical Exam Narrative Physical exam: General: Patient in mild to moderate distress secondary to right pelvic pain. Head: Normocephalic, atraumatic, no tenderness Eyes: Vision is grossly intact. EOMI ENT, no trauma, moist mucous membranes, no rhinorrhea Neck: Nontender, full range of motion, no spinal tenderness, deformities, step-off CVS: Regular rate and rhythm. S1-S2 present. No murmur, gallop or rub. Respiratory : clear to auscultation bilaterally, chest wall nontender, no wheezing Abdomen: Soft, nontender, nondistended, normal bowel sounds, no masses : Deferred Back: Nontender, no midline spinal tenderness, deformities, step-offs Extremities: Nontender full range of motion, no trauma Skin: Normal color, no trauma, abrasions Neuro: Alert, oriented, cranial nerves II through XII grossly intact. Psychiatry: Normal mood. Normal affect. Not depressed. Not anxious. Assessment & Plan Assessment/Plan (1) Kidney stone: PLAN: Right obstructive kidney stone Abdomen/pelvis CT was visualized and independently interpreted and agree radiologist impression of right collecting system obstruction due to 5 mm stone at the UVJ with minimal perinephric inflammation on the lower pole of the right kidney without any appreciable hydronephrosis or hydroureter. CBC reviewed showed normal white counts. The BMP showed normal creatinine. Patient reports that previously she has required urological interventions and is familiar with Dr. Mcmullen, urologist. N.p.o. except meds. Reports bleeding ulcers with NSAIDs and patient is ready to take any NSAIDs. Morphine as needed ordered. Antiemetics with Zofran. IV fluids ordered. Urology consult. Diabetes mellitus Patient with hyperglycemia on presentation Records reviewed from previous admission: Patient was admitted on 08/08/2021 and discharged on 08/09/2021 for hyperglycemia. Her blood glucose at that time went to as high as 800s While n.p.o. at this time will de-escalate long-acting insulin. Hold basal insulin. Accu-Chek correction scale insulin ordered. Accu-Chek Q6 hrs with correction scale insulin ordered. CKD stage II Stable Trend BMP DVT prophylaxis SCDs ordered Charges/Coding Visit Charges Inpatient E&M: 06091 Init Hosp L3
[2021-10-08] MEDS: Morphine 4 MG/ML Syringe IV (01:05)
[2021-10-08] MEDS: Ondansetron 4 MG/2 ML Vial IV (01:05)
--- NOTE | 2021-10-08 02:35 | PCM.PN.BLA ---
Progress Note Reported by nurse while patient was Amber.patient blood glucose is 43. Patient had not been started on any insulin regimen on admission. Will discontinue ordered insulin regimen. Next to follow hypoglycemic protocol. Will place patient on dextrose infusion.
[2021-10-08] MEDS: Dextrose 10%-Water 250 ML 999 ML IV ×2 (02:37→05:08)
[2021-10-08] MEDS: Dext 5%-0.45% NS 1,000 ML 75 ML IV (02:59)
--- NOTE | 2021-10-08 03:00 | NURSING ---
pt thinks she listed all her home medications.
[2021-10-08 03:41] LABS: Bedside Glucose 43 mg/dL (74-106)
[2021-10-08 03:41] LABS: Bedside Glucose 212 mg/dL (74-106)
[2021-10-08 04:21] LABS: Bedside Glucose 60 mg/dL (74-106)
[2021-10-08] MEDS: 0.9% Saline Lock 10 ML Syringe IV ×4 (04:27→21:16)
[2021-10-08] MEDS: Morphine 2 MG/ML Syringe IV ×4 (04:27→21:19)
[2021-10-08 04:51] LABS: Bedside Glucose 57 mg/dL (74-106)
[2021-10-08 05:46] LABS: Bedside Glucose 179 mg/dL (74-106)
[2021-10-08 06:32] LABS: Absolute Lymphocyte Count 2.03 X10^3/uL (0.83-4.51); Absolute Neutrophil Count 4.8 X10^3/uL (2.0-7.7); Basophil# 0.02 X10^3/uL; Basophil% 0.3 % (0-1); Eosinophil# 0.19 X10^3/uL; Eosinophils% 2.4 % (0-5); Hematocrit 35.3 % (37-47); Hemoglobin 12.6 g/dL (12.0-15.0); Lymphocyte # 2.03 X10^3/ul (0.83-4.51); Lymphocyte % 25.9 % (19-41); Mean Corp Hgb Conc 35.7 g/dL (32-36); Mean Corpuscular Hgb 36.6 pg (27.0-32.0); Mean Corpuscular Volume 102.6 fL (81-99); Mean Platelet Vol. 11.1 fl (6.2-12.0); Monocyte# 0.81 X10^3/uL; Monocyte% 10.3 % (0-10); NRBC Flagged by Analyzer 0 % (0-5); Neutrophil # 4.77 X10^3/uL (2.7-7.7); Neutrophil % 60.7 % (47-70); Platelet Count 138 K/mm3 (150-450); RBC Distribution Width CV 14.2 % (11.6-14.6); RBC Distribution Width SD 44.8 fl (35.1-43.9); Red Blood Count 3.44 M/mm3 (4.2-5.4); White Blood Count 7.9 K/mm3 (4.4-11.0)
[2021-10-08 06:50] LABS: Bedside Glucose 144 mg/dL (74-106)
[2021-10-08 07:31] LABS: Anion Gap 7 (5-15); BUN 15 mg/dL (7-18); BUN/Creat Ratio 14.2 RATIO (10-20); Calcium,Total 8.3 mg/dL (8.5-10.1); Chloride 107 mmol/L (98-107); Creatinine, Serum 1.06 mg/dL (0.55-1.02); EST Glomerular Filtration Rate 63 mL/min (>60); Est Glom Filt Rate - Afr Amer 76 mL/min (>60); Estimated Creatinine Clearance 53.21 ml/min; Glucose 145 mg/dL (74-106); Potassium 3.4 mmol/L (3.5-5.1); Sodium Level 139 mmol/L (136-145)
--- NOTE | 2021-10-08 07:59 | PN.HOSP_ITS ---
Subjective Subjective Seen before cystoscopy: Still with suprapubic tenderness. Dark urine. Objective Data Objective Data Vital Signs: Vital Signs Temp Pulse Resp BP Pulse Ox 36.5 C L 105 H 18 126/86 H 95 10/08/21 03:14 10/08/21 03:14 10/08/21 03:14 10/08/21 03:14 10/08/21 07:04 Oxygen Delivery Method Room Air Weight: 90.4 kg Body Mass Index (BMI) 38.9 Intake & Output: Intake and Output for Last 24 Hours 10/06/21 10/07/21 10/08/21 23:59 23:59 23:59 Intake Total 1162.5 / 1162.5 Output Total 0 / 0 Balance 1162.5 / 1162.5 Lab / Micro Data Result Diagrams: 10/08/21 05:24 10/08/21 06:45 Labs: Laboratory Results - last 24 hr 10/08/21 02:29: POC Glucose 43 L* 10/08/21 03:00: POC Glucose 212 H 10/08/21 04:07: POC Glucose 60 L 10/08/21 04:48: POC Glucose 57 L 10/08/21 05:24: WBC 7.9, RBC 3.44 L, Hgb 12.6, Hct 35.3 L, MCV 102.6 H D, MCH 36.6 H, MCHC 35.7 D, RDW Std Deviation 44.8 H, RDW Coeff of [place] 14.2, Plt Count 138 L, MPV 11.1, Immature Gran % (Auto) 0.400, Neut % (Auto) 60.7, Lymph % (Auto) 25.9, [place] % (Auto) 10.3 H, Eos % (Auto) 2.4, Baso % (Auto) 0.3, Absolute Neuts (auto) 4.8, Absolute Lymphs (auto) 2.03, Nucleated RBC % 0 10/08/21 05:40: POC Glucose 179 H 10/08/21 06:44: POC Glucose 144 H 10/08/21 06:45: Sodium 139, Potassium 3.4 L, Chloride 107, Carbon Dioxide 25.0, Anion Gap 7, BUN 15, Creatinine 1.06 H, Estim Creat Clear Calc 53.21, Est GFR (MDRD) Af Amer 76, Est GFR (MDRD) Non-Af 63, BUN/Creatinine Ratio 14.2, Glucose 145 H, Calcium 8.3 L Physical Exam Const alert and no apparent distress HEENT Head and Scalp: normocephalic Cardio regular rate, regular rhythm, S1 normal heart sound and S2 normal heart sound GI normal to inspection, nondistended, normoactive bowel sounds, soft to palpation, non-tender and non-distended Assessment & Plan Assessment/Plan (1) Renal colic on right side: (2) Right ureteral stone: PLAN: 1. Right obstructive ureteral stone * 5mm stone at UVJ junction * s/p cystoscopy today with right ureteral stent placement. * pain control 2. Hypoglycemia * resolved * discontinue D5NS 3. DM2 * Glargine and novolog on hold given hypoglycemia Charges/Coding Procedures Hospitalists Procedures: Other Procedure - See Report (nonbillable rounding as pt admitted after midnight. )
[2021-10-08 09:06] LABS: Bedside Glucose 184 mg/dL (74-106)
[2021-10-08 11:16] LABS: Bedside Glucose 192 mg/dL (74-106)
--- NOTE | 2021-10-08 12:38 | CON.PCM.UR_ITS ---
Assessment & Plan Assessment/Plan (1) Renal colic on right side: PLAN: Plan for a cystoscopy and right stent placement HPI Consult Data Date of Consult: 10/08/21 HPI Narrative HPI Narrative: VEL FARR, is a 36 F who presents with an obstructing stone in the distal right ureter plan to proceed with placement of a right stent to alleviate obstruction. [facility] Medical History Anxiety Asthma Chest pain Current use of insulin Depression Diabetes DVT (deep venous thrombosis) GI bleed High cholesterol Hypertension Kidney stones Knee arthropathy Migraines Ureteral stone Home Medications alprazolam [Xanax] 0.5 - 1 mg PO BID PRN PRN 11/24/17 [History Last Taken 11/23/20] atorvastatin 40 mg PO QHS 12/26/20 [History Last Taken Unknown] albuterol sulfate [Ventolin HFA] 1 - 2 puff INHALATION Q4H PRN PRN #1 device 07/07/21 [Rx Last Taken Unknown] insulin aspart U-100 [Novolog Flexpen U-100 Insulin] 45 unit SUBCUT TIDCM #45 ml 08/09/21 [Rx Last Taken Unknown] acetaminophen 650 mg PO Q4H PRN 10/08/21 [History Last Taken Unknown] amitriptyline 50 - 75 mg PO QHS 10/08/21 [History Last Taken Unknown] bifidobacteri bifid.and longum 1 cap PO DAILY 10/08/21 [History Last Taken Unknown] dextroamphetamine-amphetamine 5 mg PO QHS 10/08/21 [History Last Taken Unknown] dextroamphetamine-amphetamine 10 mg PO DAILY 10/08/21 [History Last Taken Unknown] diphenoxylate-atropine 1 tab PO 4X/DAY PRN PRN 10/08/21 [History Last Taken U nknown] fluconazole 150 mg PO DAILY 10/08/21 [History Last Taken Unknown] furosemide 20 - 40 mg PO DAILY PRN 10/08/21 [History Last Taken Unknown] hydrochlorothiazide 25 mg PO BID 10/08/21 [History Last Taken Unknown] insulin glargine [Lantus Solostar U-100 Insulin] 36 units SUBCUT QHS 10/08/21 [History Last Taken Unknown] oxycodone [Roxicodone] 5 mg PO Q6H PRN 10/08/21 [History Last Taken Unknown] potassium chloride [K-Tab] 20 meq PO BID 10/08/21 [History Last Taken Unknown] promethazine 25 mg PO Q6H PRN 10/08/21 [History Last Taken Unknown] rimegepant 75 mg PO DAILY PRN PRN 10/08/21 [History Last Taken Unknown] triamcinolone acetonide 1 applic TOPICAL TID PRN 10/08/21 [History Last Taken U nknown] valacyclovir [Valtrex] 1,000 mg PO DAILY 10/08/21 [History Last Taken Unknown] Allergy/AdvReac Type Severity Reaction Status Date / Time Penicillins Allergy Hives Verified 10/08/21 00:38 azithromycin [From Zithromax] AdvReac Vomiting Verified 10/08/21 00:38 diphenhydramine AdvReac Vomiting Verified 10/08/21 02:46 [From Benadryl] doxycycline AdvReac Other Verified 10/08/21 00:38 latex AdvReac Rash Verified 10/08/21 00:38 minocycline [Minocycline] AdvReac Other Verified 10/08/21 00:38 NSAIDS (Non-Steroidal AdvReac Bleeding Verified 10/08/21 00:38 Anti-Inflamma tramadol AdvReac Shortness Verified 10/08/21 00:38 of breath Family History Mother Diabetes Surgical History H/O: hysterectomy History of cholecystectomy Hx of hernia repair Social History Smoking Status: Never smoker ROS Constitutional Constitutional: Denies chills, fever(s) or malaise Eyes Eyes: Denies blurry vision or change in vision ENT HEENT: Reports none Cardiovascular Cardiovascular: Denies chest pain or palpitations Respiratory/Chest Respiratory/Chest: Denies cough or shortness of breath with exertion Gastrointestinal Gastrointestinal: Denies abdominal pain, constipation or diarrhea Musculoskeletal Musculoskeletal: Denies back pain, joint stiffness or joint swelling Integumentary Integumentary: Denies dry skin, jaundice, lesions or rash Neurologic Neurologic: Denies confusion, syncope or weakness Psychiatric Psychiatric: Reports none; Denies anxiety or depression Endocrine Endocrinology: Denies excessive sweating, fatigue or flushing Hematologic/Lymphatic Hematologic/Lymphatic: Denies anemia, easy bleeding or easy bruising Physical Exam Const alert and oriented x3 General Appearance: cooperative HEENT normocephalic, head/scalp atraumatic, EAC's normal and TM's normal bilaterally Eyes PERRL and EOMs intact bilaterally Pupil: sluggish Neck no lymphadenopathy, supple and no JVD General: trachea midline Lymph Lymphatic: no lymphadenopathy noted, lymphedema and lymphadenopathy Resp normal respiratory effort, normal air movement and clear to auscultation bilaterally Cardio regular rate, regular rhythm and peripheral pulses 2+ throughout GI soft to palpation, non-tender and non-distended Extremity normal capillary refill and no clubbing, cyanosis or edema General Extremity: no tenderness to palpation of joints or extremities Skin no rashes or lesions noted General Skin Exam: turgor normal Lesions: no lesions Rashes: no rashes Neuro CN's II-XII intact bilaterally Speech: speech normal Motor Exam: strength 5/5 throughout; Negative for general weakness Psych thought process normal, cooperative and affect normal Appearance: appropriate Lab / Micro Data Result Diagrams: 10/08/21 05:24 10/08/21 06:45 Labs: Laboratory Results - last 24 hr 10/08/21 02:29: POC Glucose 43 L* 10/08/21 03:00: POC Glucose 212 H 10/08/21 04:07: POC Glucose 60 L 10/08/21 04:48: POC Glucose 57 L 10/08/21 05:24: WBC 7.9, RBC 3.44 L, Hgb 12.6, Hct 35.3 L, MCV 102.6 H D, MCH 36.6 H, MCHC 35.7 D, RDW Std Deviation 44.8 H, RDW Coeff of Louis 14.2, Plt Count 138 L, MPV 11.1, Immature Gran % (Auto) 0.400, Neut % (Auto) 60.7, Lymph % (Auto) 25.9, Bowman % (Auto) 10.3 H, Eos % (Auto) 2.4, Baso % (Auto) 0.3, Absolute Neuts (auto) 4.8, Absolute Lymphs (auto) 2.03, Nucleated RBC % 0 10/08/21 05:40: POC Glucose 179 H 10/08/21 06:44: POC Glucose 144 H 10/08/21 06:45: Sodium 139, Potassium 3.4 L, Chloride 107, Carbon Dioxide 25.0, Anion Gap 7, BUN 15, Creatinine 1.06 H, Estim Creat Clear Calc 53.21, Est GFR (MDRD) Af Amer 76, Est GFR (MDRD) Non-Af 63, BUN/Creatinine Ratio 14.2, Glucose 145 H, Calcium 8.3 L 10/08/21 08:59: POC Glucose 184 H 10/08/21 11:02: POC Glucose 192 H Micro: Microbiology 10/08/21 08:20 Nasal Secretion SARS-CoV-2 Antigen (Rapid) - Final
[2021-10-08] MEDS: Cefazolin 2 GM in 0.9% Normal Saline 100 ML IV (12:44)
--- NOTE | 2021-10-08 12:50 | OP.PCM_ITS ---
Report of Operation Date of Procedure: 10/08/21 Pre-Operative Diagnosis: right kidney stone Post-Operative Diagnosis: same Surgery/Procedure Performed:: cystoscopy and right stent placement Description of Surgical Findings:: Patient was taken back to the operating room after induction of general anesthesia, the patient was placed in dorsolithotomy position. The urethra and genitals were prepped and draped in usual sterile fashion. Using a 21 [place] rigid cystourethroscope the entire length of the urethra was normal then went into the bladder. Identified the trigone the left and right ureteral orifice. I then cannulated the Right orifice and advanced a wire up into the kidney. I then backloaded a 5 [place] open ended catheter over the wire and injected contrast to delineate the anatomy. After the retrograde was performed I then used fluoroscopic images and guidance to advanced a wire up into the kidney and over the 0.038 glidewire I advanced a 6 [place] by 26 cm double pigtail stent. I then pulled the 0.038 Glidewire off and the stent coiled in the kidney bladder good position. The bladder was then drained. We confirmed the position of the stent by fluoroscopy. Patient anesthetic was reversed and was taken back to the PACU in good condition. Surgeon: antonia Type of Anesthesia: General Drains: stent Admit VTE Documentation VTE Present on Admission: No VTE Mechan Device Prophylaxis: SCD's VTE Pharm Prophylaxis ordered?: No
--- NOTE | 2021-10-08 12:52 | PCM.DC ---
Discharge Instructions Diet Discharge Diet: No restrictions Activity Discharge Activity: Return to Normal Activity and May Not Drive (while taking narcotic pain medications.) Dressing / Incision Call your doctor if you observe: Fever of 101 or Higher Follow Up Care Please Follow Up With: Matias Mcmullen MD When: Call [phone] for an appointment Test Results: Test results from this visit will be discussed in further detail at your follow-up appointment, if applicable. Discharge Plan Admission Admit Date/Time: 10/08/21 01:03 Attending Provider: Garrison Lee Primary Care Provider: Gwen Verdin Consulting Providers: Matias Mcmullen Discharge Orders/Prescriptions Prescriptions: No Action alprazolam [Xanax] 1 MG tablet 0.5 - 1 mg PO BID PRN PRN (Reason: Anxiety) RF: 0 atorvastatin 40 mg tablet 40 mg PO QHS RF: 0 albuterol sulfate [Ventolin HFA] 90 mcg/actuation HFA aerosol inhaler 1 - 2 puff inhalation Q4H PRN PRN (Reason: Wheezing) Qty: 1 RF: 0 insulin aspart U-100 [Novolog Flexpen U-100 Insulin] 100 unit/mL (3 mL) insulin pen 45 unit subcut TIDCM Qty: 45 RF: 0 hydrochlorothiazide 25 mg tablet 25 mg PO BID RF: 0 dextroamphetamine-amphetamine 5 mg tablet 10 mg PO DAILY RF: 0 dextroamphetamine-amphetamine 5 mg tablet 5 mg PO QHS RF: 0 Lantus Solostar U-100 Insulin 100 unit/mL (3 mL) insulin pen 36 units subcut QHS RF: 0 acetaminophen 325 mg Tablet 650 mg PO Q4H PRN (Reason: Pain) RF: 0 fluconazole 150 mg Tablet 150 mg PO DAILY RF: 0 valacyclovir [Valtrex] 1 gram Tablet 1,000 mg PO DAILY RF: 0 diphenoxylate-atropine 2.5-0.025 mg Tablet 1 tab PO 4X/DAY PRN PRN (Reason: Diarrhea) RF: 0 potassium chloride [K-Tab] 10 mEq Tablet Extended Release 20 meq PO BID RF: 0 triamcinolone acetonide 0.1 % Cream 1 applic TOPICAL TID PRN (Reason: RASH/ITCHING) RF: 0 amitriptyline 25 mg Tablet 50 - 75 mg PO QHS RF: 0 promethazine 25 mg Tablet 25 mg PO Q6H PRN (Reason: NAUSEA/VOMITING) RF: 0 furosemide 20 mg Tablet 20 - 40 mg PO DAILY PRN (Reason: BREAKTHROUGH SWELLING DESPITE HCTZ) RF: 0 oxycodone [Roxicodone] 5 mg Tablet 5 mg PO Q6H PRN (Reason: Pain) RF: 0 bifidobacteri bifid.and longum 460 mg (9-1 bill.cell) Capsule 1 cap PO DAILY RF: 0 rimegepant 75 mg Tablet,Disintegrating 75 mg PO DAILY PRN PRN (Reason: Headache) RF: 0 Referrals / Follow Up: Gwen Verdin MD [Primary Care Provider] -
[2021-10-08 13:26] LABS: Bedside Glucose 224 mg/dL (74-106)
[2021-10-08 14:05] LABS: Bedside Glucose 236 mg/dL (74-106)
[2021-10-08 15:21] LABS: Bedside Glucose 208 mg/dL (74-106)
[2021-10-08] MEDS: Insulin Lispro 100 UNIT/ML INSULN.PEN SC (17:20)
[2021-10-08] MEDS: Acyclovir 200 MG Capsule 400 MG PO (21:07)
[2021-10-08] MEDS: Atorvastatin Calcium 40 MG Tablet PO (21:07)
[2021-10-08] MEDS: Potassium Chloride Oral Tablet 20 MEQ PO (21:08)
[2021-10-08] MEDS: Amitriptyline 25 MG Tablet 50 MG PO (21:16)
--- NOTE | 2021-10-08 21:35 | NURSING ---
Patient scanned her Librae, blood glucose is 245.
[2021-10-08] MEDS: Acetaminophen 325 MG Tablet 650 MG PO (22:54)
[2021-10-08] MEDS: oxyCODONE 5 MG Tablet PO (22:54)
[2021-10-09] MEDS: 0.9% Saline Lock 10 ML Syringe IV ×2 (02:51→09:48)
[2021-10-09] MEDS: Morphine 2 MG/ML Syringe IV ×2 (02:51→09:48)
[2021-10-09 04:00] VITALS: BP 114/62; PULSE 74; RESP 16; TEMP 37.4; O2SAT 99
[2021-10-09] MEDS: Acetaminophen 325 MG Tablet 650 MG PO (07:03)
[2021-10-09] MEDS: oxyCODONE 5 MG Tablet PO (07:04)
[2021-10-09] MEDS: Insulin Lispro 100 UNIT/ML INSULN.PEN SC (07:06)
--- NOTE | 2021-10-09 07:37 | NURSING ---
At 0706, patient checked her librae, blood glucose is 214
[2021-10-09 09:10] VITALS: BP 104/58; PULSE 96; RESP 16; TEMP 36.6; O2SAT 97
[2021-10-09] MEDS: Acyclovir 200 MG Capsule 400 MG PO (09:44)
[2021-10-09] MEDS: Potassium Chloride Oral Tablet 20 MEQ PO (09:44)
--- NOTE | 2021-10-09 11:29 | PCM.DC ---
Discharge Instructions Diet Discharge Diet: 2000 Calorie Control Diet Dressing / Incision Call your doctor if you observe: Fever of 101 or Higher and Inability to urinate Follow Up Care Please Follow Up With: Matias Mcmullen MD Test Results: Test results from this visit will be discussed in further detail at your follow-up appointment, if applicable. Discharge Plan Admission Admit Date/Time: 10/08/21 01:03 Primary Reason for Your Visit: ureteral stone Attending Provider: Garrison Lee Primary Care Provider: Gwen Verdin Consulting Providers: Matias Mcmullen Discharge Orders/Prescriptions Prescriptions: New phenazopyridine [Pyridium] 100 mg tablet 100 mg PO TID PRN (Reason: pain) Qty: 6 RF: 0 Continued alprazolam [Xanax] 1 MG tablet 0.5 - 1 mg PO BID PRN PRN (Reason: Anxiety) RF: 0 atorvastatin 40 mg tablet 40 mg PO QHS RF: 0 albuterol sulfate [Ventolin HFA] 90 mcg/actuation HFA aerosol inhaler 1 - 2 puff inhalation Q4H PRN PRN (Reason: Wheezing) Qty: 1 RF: 0 insulin aspart U-100 [Novolog Flexpen U-100 Insulin] 100 unit/mL (3 mL) insulin pen 45 unit subcut TIDCM Qty: 45 RF: 0 hydrochlorothiazide 25 mg tablet 25 mg PO BID RF: 0 dextroamphetamine-amphetamine 5 mg tablet 10 mg PO DAILY RF: 0 dextroamphetamine-amphetamine 5 mg tablet 5 mg PO QHS RF: 0 Lantus Solostar U-100 Insulin 100 unit/mL (3 mL) insulin pen 36 units subcut QHS RF: 0 acetaminophen 325 mg Tablet 650 mg PO Q4H PRN (Reason: Pain) RF: 0 valacyclovir [Valtrex] 1 gram Tablet 1,000 mg PO DAILY RF: 0 diphenoxylate-atropine 2.5-0.025 mg Tablet 1 tab PO 4X/DAY PRN PRN (Reason: Diarrhea) RF: 0 potassium chloride [K-Tab] 10 mEq Tablet Extended Release 20 meq PO BID RF: 0 triamcinolone acetonide 0.1 % Cream 1 applic TOPICAL TID PRN (Reason: RASH/ITCHING) RF: 0 amitriptyline 25 mg Tablet 50 - 75 mg PO QHS RF: 0 promethazine 25 mg Tablet 25 mg PO Q6H PRN (Reason: NAUSEA/VOMITING) RF: 0 furosemide 20 mg Tablet 20 - 40 mg PO DAILY PRN (Reason: BREAKTHROUGH SWELLING DESPITE HCTZ) RF: 0 oxycodone [Roxicodone] 5 mg Tablet 5 mg PO Q6H PRN (Reason: Pain) RF: 0 bifidobacteri bifid.and longum 460 mg (9-1 bill.cell) Capsule 1 cap PO DAILY RF: 0 rimegepant 75 mg Tablet,Disintegrating 75 mg PO DAILY PRN PRN (Reason: Headache) RF: 0 Changed fluconazole 150 mg Tablet 150 mg PO DAILY PRN (Reason: yeast infection) Qty: 0 RF: 0 Referrals / Follow Up: Matias Mcmullen MD [STAFF PHYSICIAN] - Within 2 Weeks Gwen Verdin MD [Primary Care Provider] - Within 2 Weeks Disposition Disposition (needs filled in before D/C Order can be placed): Home, Self Care
--- NOTE | 2021-10-09 11:34 | PCM.DC.SUM ---
Providers Date of Admission: 10/08/21 Primary Care Physician: Dr. Gwen Verdin MD Consultations 10/08/21 02:26 Consult: Urology Routine Consulting Provider: Matias Mcmullen Reason for Consult: ureteral stone EMERGENT Consult: No MD Notified: Yes Date Notified: 10/08/21 Time Notified: 06:42 Method of Notification: Verbal Comments:: phone Reason For Visit: URETERAL STONE Diagnosis Discharge Diagnosis (1) Renal colic on right side: Status: Acute Code(s): N23 - Unspecified renal colic (2) Right ureteral stone: Status: Acute Code(s): N20.1 - Calculus of ureter Medications at Discharge Home Medications alprazolam [Xanax] 0.5 - 1 mg PO BID PRN PRN 11/24/17 atorvastatin 40 mg PO QHS 12/26/20 albuterol sulfate [Ventolin HFA] 1 - 2 puff INHALATION Q4H PRN PRN #1 device 07/07/21 insulin aspart U-100 [Novolog Flexpen U-100 Insulin] 45 unit SUBCUT TIDCM #45 ml 08/09/21 Lantus Solostar U-100 Insulin 36 units SUBCUT QHS 10/08/21 acetaminophen 650 mg PO Q4H PRN 10/08/21 amitriptyline 50 - 75 mg PO QHS 10/08/21 bifidobacteri bifid.and longum 1 cap PO DAILY 10/08/21 dextroamphetamine-amphetamine 5 mg PO QHS 10/08/21 dextroamphetamine-amphetamine 10 mg PO DAILY 10/08/21 diphenoxylate-atropine 1 tab PO 4X/DAY PRN PRN 10/08/21 furosemide 20 - 40 mg PO DAILY PRN 10/08/21 hydrochlorothiazide 25 mg PO BID 10/08/21 oxycodone [Roxicodone] 5 mg PO Q6H PRN 10/08/21 potassium chloride [K-Tab] 20 meq PO BID 10/08/21 promethazine 25 mg PO Q6H PRN 10/08/21 rimegepant 75 mg PO DAILY PRN PRN 10/08/21 triamcinolone acetonide 1 applic TOPICAL TID PRN 10/08/21 valacyclovir [Valtrex] 1,000 mg PO DAILY 10/08/21 fluconazole 150 mg PO DAILY PRN #0 tab 10/09/21 phenazopyridine [Pyridium] 100 mg PO TID PRN #6 tab 10/09/21 Hospital Course Procedures - (Cystoscopy) Summary of Care Provided Minutes Spent on Discharge: 28 Hospital Course: 1. Right obstructive ureteral stone 5mm stone at UVJ junction s/p cystoscopy today with right ureteral stent placement. Follow-up with urology for eventual stent removal. Patient complaining of pain with urination. Patient was concerned about the stent being the problem. Informed patient that the stent is in her ureter not her urethra and she likely has irritation due to the cystoscopy itself. We will add Pyridium. 2. Hypoglycemia Resume patient's home diabetes regimen now that she can eat. Physical Exam Const alert Resp normal respiratory effort, no retractions, no use of accessory muscles and clear to auscultation bilaterally Cardio regular rate, regular rhythm, S1 normal heart sound and S2 normal heart sound GI normal to inspection, nondistended, normoactive bowel sounds and soft to palpation Weight / BMI Weight Weight: 72.575 kg Body Mass Index (BMI) 31.2 ABG / Lab / Microbiology Data Result Diagrams: 10/08/21 05:24 10/08/21 06:45 Laboratory: Laboratory Results - last 24 hr 10/08/21 13:23: POC Glucose 224 H 10/08/21 13:56: POC Glucose 236 H 10/08/21 15:18: POC Glucose 208 H Microbiology: Microbiology 10/08/21 08:20 Nasal Secretion SARS-CoV-2 Antigen (Rapid) - Final D/C Instructions Discharge Diet: 2000 Calorie Control Diet Call your doctor if you observe: Fever of 101 or Higher and Inability to urinate Please Follow Up With: Matias Mcmullen MD When: Call [phone] for an appointment Meaningful Use Info Meaningful Use Diagnoses (Choose all that apply): None applicable Discharge Plan Admission Admit Date/Time: 10/08/21 01:03 Primary Reason for Your Visit: ureteral stone Attending Provider: Garrison Lee Primary Care Provider: Gwen Verdin Consulting Providers: Matias Mcmullen Discharge Orders/Prescriptions Prescriptions: New phenazopyridine [Pyridium] 100 mg tablet 100 mg PO TID PRN (Reason: pain) Qty: 6 RF: 0 Continued alprazolam [Xanax] 1 MG tablet 0.5 - 1 mg PO BID PRN PRN (Reason: Anxiety) RF: 0 atorvastatin 40 mg tablet 40 mg PO QHS RF: 0 albuterol sulfate [Ventolin HFA] 90 mcg/actuation HFA aerosol inhaler 1 - 2 puff inhalation Q4H PRN PRN (Reason: Wheezing) Qty: 1 RF: 0 insulin aspart U-100 [Novolog Flexpen U-100 Insulin] 100 unit/mL (3 mL) insulin pen 45 unit subcut TIDCM Qty: 45 RF: 0 hydrochlorothiazide 25 mg tablet 25 mg PO BID RF: 0 dextroamphetamine-amphetamine 5 mg tablet 10 mg PO DAILY RF: 0 dextroamphetamine-amphetamine 5 mg tablet 5 mg PO QHS RF: 0 Lantus Solostar U-100 Insulin 100 unit/mL (3 mL) insulin pen 36 units subcut QHS RF: 0 acetaminophen 325 mg Tablet 650 mg PO Q4H PRN (Reason: Pain) RF: 0 valacyclovir [Valtrex] 1 gram Tablet 1,000 mg PO DAILY RF: 0 diphenoxylate-atropine 2.5-0.025 mg Tablet 1 tab PO 4X/DAY PRN PRN (Reason: Diarrhea) RF: 0 potassium chloride [K-Tab] 10 mEq Tablet Extended Release 20 meq PO BID RF: 0 triamcinolone acetonide 0.1 % Cream 1 applic TOPICAL TID PRN (Reason: RASH/ITCHING) RF: 0 amitriptyline 25 mg Tablet 50 - 75 mg PO QHS RF: 0 promethazine 25 mg Tablet 25 mg PO Q6H PRN (Reason: NAUSEA/VOMITING) RF: 0 furosemide 20 mg Tablet 20 - 40 mg PO DAILY PRN (Reason: BREAKTHROUGH SWELLING DESPITE HCTZ) RF: 0 oxycodone [Roxicodone] 5 mg Tablet 5 mg PO Q6H PRN (Reason: Pain) RF: 0 bifidobacteri bifid.and longum 460 mg (9-1 bill.cell) Capsule 1 cap PO DAILY RF: 0 rimegepant 75 mg Tablet,Disintegrating 75 mg PO DAILY PRN PRN (Reason: Headache) RF: 0 Changed fluconazole 150 mg Tablet 150 mg PO DAILY PRN (Reason: yeast infection) Qty: 0 RF: 0 Referrals / Follow Up: Matias Mcmullen MD [STAFF PHYSICIAN] - Within 2 Weeks Gwen Verdin MD [Primary Care Provider] - Within 2 Weeks Disposition Disposition (needs filled in before D/C Order can be placed): Home, Self Care Charges/Coding Visit Charges Inpatient E&M: 31246 Disch Hosp
== END 2021-10-09 12:26 | disposition home or self-care (01) ==
LOC: ED 00:54 → MS3 01:17
PROVIDERS: Urology; Admitting Provider Hospitalist; Emergency Provider Student in an Organized Health Care Education/Training Program; PCP Internal Medicine
PROC: (CPT 52332; principal; 2021-10-08 12:50)
DX: N20.1 Calculus of ureter (principal); E11.649 Type 2 diabetes mellitus with hypoglycemia without coma; E11.65 Type 2 diabetes mellitus with hyperglycemia; Z79.4 Long term (current) use of insulin; I12.9 Hypertensive chronic kidney disease with stage 1 through stage 4 chronic kidney disease, or unspecified chronic kidney disease; F41.9 Anxiety disorder, unspecified; E78.00 Pure hypercholesterolemia, unspecified; Z79.899 Other long term (current) drug therapy; J45.909 Unspecified asthma, uncomplicated; F90.9 Attention-deficit hyperactivity disorder, unspecified type; Z86.718 Personal history of other venous thrombosis and embolism; N18.2 Chronic kidney disease, stage 2 (mild); F32.A Depression, unspecified
CPT/HCPCS: 52332; 00910; C1769; C2617; 36415; 76000; 80048; 82962; 85025; 87426; 96361; 96374; 96375; 96376; 97803; 99218; 99284; J7030; J7120; A4216; G0378; J2405; J7799

== ENCOUNTER 2021-12-06 22:00 | Emergency (ER) | payer MEDICAID, SELFPAY ==
[2021-12-06 22:02] VITALS: BP 129/98; PULSE 118; RESP 18; TEMP 36.7; O2SAT 98; BMI 35.2
--- NOTE | 2021-12-06 23:08 | EDS_ITS ---
HPI HPI - GI History of Present Illness Chief Complaint: Flank Pain Informant: patient Narrative Narrative: Patient says she has been constipated and has not had a bowel movement for a week. However, she did not start having abdominal pain until tonight about 3 or 4 hours ago, she started having pain in her right low back and her suprapubic area, along with urinary symptoms of frequency, foul-smelling urine, and burning after she urinates, she states similar pain when she had a kidney stone before she needed a stent and lithotripsy afterwards, but the pain is worse now, and in addition to this, she feels like she needs to have a bowel movement but she is passing brown liquid stool and she states there is nothing hanging out of her rectum but it feels like I am pushing my intestines out and she still feels like she needs to have a bowel movement but cannot after passing liquid. [facility] Medical History Anxiety Asthma Chest pain Current use of insulin Depression Diabetes Diabetes mellitus DVT (deep venous thrombosis) GI bleed High cholesterol Hyperglycemia due to diabetes mellitus Hypertension Kidney stones Knee arthropathy Migraines Ureteral stone Home Medications alprazolam 1 mg tablet (Xanax) 0.5 - 1 mg PO BID PRN PRN Anxiety 11/24/17 [History Last Taken 11/23/20] atorvastatin 40 mg tablet 40 mg PO QHS Check with primary doctor 12/26/20 [History Last Taken Unknown] albuterol sulfate 90 mcg/actuation aerosol inhaler (Ventolin HFA) 1 - 2 puff inhalation Q4H PRN PRN Wheezing #1 device 07/07/21 [Rx Last Taken Unknown] insulin aspart U-100 100 unit/mL (3 mL) subcutaneous pen (Novolog Flexpen U-100 Insulin aspart) 45 unit (0.45 mL) subcut TIDCM #45 mL 08/09/21 [Rx Last Taken Unknown] acetaminophen 325 mg tablet 650 mg PO Q4H PRN Pain 10/08/21 [History Last Taken Unknown] amitriptyline 25 mg tablet 50 - 75 mg PO QHS 10/08/21 [History Last Taken Unknown] bifidobacterium bifidum and longum 460 mg (9-1 billion cell) capsule 1 cap PO DAILY 10/08/21 [History Last Taken Unknown] dextroamphetamine-amphetamine 5 mg tablet 5 mg PO QHS 10/08/21 [History Last Taken Unknown] dextroamphetamine-amphetamine 5 mg tablet 10 mg PO DAILY 10/08/21 [History Last Taken Unknown] diphenoxylate-atropine 2.5 mg-0.025 mg tablet 1 tab PO 4X/DAY PRN PRN Diarrhea 10/08/21 [History Last Taken Unknown] furosemide 20 mg tablet 20 - 40 mg PO DAILY PRN BREAKTHROUGH SWELLING DESPITE HCTZ 10/08/21 [History Last Taken Unknown] hydrochlorothiazide 25 mg tablet 25 mg PO BID 10/08/21 [History Last Taken Unknown] insulin glargine 100 unit/mL (3 mL) subcutaneous pen (Lantus Solostar U-100 Insulin) 36 units subcut QHS 10/08/21 [History Last Taken Unknown] oxycodone 5 mg tablet (Roxicodone) 5 mg PO Q6H PRN Pain 10/08/21 [History Last Taken Unknown] potassium chloride 10 mEq tablet,extended release (K-Tab) 20 meq PO BID 10/08/21 [History Last Taken Unknown] promethazine 25 mg tablet 25 mg PO Q6H PRN NAUSEA/VOMITING 10/08/21 [History Last Taken Unknown] rimegepant 75 mg disintegrating tablet 75 mg PO DAILY PRN PRN Headache 10/08/21 [History Last Taken Unknown] triamcinolone acetonide 0.1 % topical cream 1 applic topical TID PRN RASH/ITCHING 10/08/21 [History Last Taken Unknown] valacyclovir 1 gram tablet (Valtrex) 1,000 mg PO DAILY 10/08/21 [History Last Taken Unknown] fluconazole 150 mg tablet 150 mg PO DAILY PRN yeast infection #0 tabs 10/09/21 [Rx Last Taken Unknown] phenazopyridine 100 mg tablet (Pyridium) 100 mg PO TID PRN pain 6 doses #6 tabs 10/09/21 [Rx Last Taken Unknown] sulfamethoxazole 800 mg-trimethoprim 160 mg tablet 1 tab PO BID #20 TABLETS 12/07/21 [Rx Last Taken Unknown] Allergy/AdvReac Type Severity Reaction Status Date / Time Penicillins Allergy Hives Verified 12/06/21 22:02 azithromycin [From Zithromax] AdvReac Vomiting Verified 12/06/21 22:02 diphenhydramine AdvReac Vomiting Verified 12/06/21 22:02 [From Benadryl] doxycycline AdvReac Other Verified 12/06/21 22:02 latex AdvReac Rash Verified 12/06/21 22:02 minocycline [Minocycline] AdvReac Other Verified 12/06/21 22:02 NSAIDS (Non-Steroidal AdvReac Bleeding Verified 12/06/21 22:02 Anti-Inflamma tramadol AdvReac Shortness Verified 12/06/21 22:02 of breath Family History Mother Diabetes Surgical History H/O: hysterectomy History of cholecystectomy Hx of hernia repair Social History Smoking Status: Never smoker ROS ROS ED Constitutional Constitutional ED: Denies chills or fever(s) Eyes Eyes: Denies change in vision or diplopia ENT ENT ED: Denies rhinorrhea or sore throat Cardiovascular Cardiovascular: Denies chest pain or palpitations Respiratory/Chest Respiratory/Chest: Denies cough or dyspnea Gastrointestinal Gastrointestinal: Reports as per HPI, abdominal pain, constipation, diarrhea and nausea; Denies vomiting Genitourinary Genitourinary ED: Reports dysuria, urinary frequency and urinary urgency; Denies hematuria Musculoskeletal Musculoskeletal: Reports back pain; Denies neck pain Integumentary Denies abscess or rash Neurologic Neurologic: Denies headache(s), paresthesias or weakness Psychiatric Psychiatric: Denies anxiety or suicidal thoughts EXAM Physical Exam Const Vital Signs: 12/06/21 22:02 12/07/21 01:00 Temperature 98.1 F Temperature Source Temporal Pulse Rate 118 H Respiratory Rate 18 18 Blood Pressure 129/98 H Blood Pressure Mean 108 Pulse Ox 98 Oxygen Delivery Method Room Air Room Air Positive well nourished, well developed and obese General Appearance ED: well developed and NAD Nutritional Appearance: obese HEENT Reports moist mucous membranes normocephalic and atraumatic Eyes PERRL and EOMs intact bilaterally Neck full ROM and supple Resp normal respiratory effort and clear to auscultation bilaterally Cardio regular rate, regular rhythm and no murmurs GI non-distended GI Narrative: Tender suprapubic otherwise benign abdomen. No guarding or rebound. Rectal exam: Normal external exam. Uncomfortable digital rectal exam, no palpable abscess, no obstipation palpable. Trace amount of brown nonbloody stool. Auscultation: normoactive bowel sounds Palpation: soft Back/Spine General Back: other FROM Extremity normal to inspection General Extremety ED: Negative for edema, pulses abnormal or tenderness General Extremity: Negative for edema or pulses abnormal Neuro oriented x3, CN's II-XII intact bilaterally, no sensory deficits noted and gait normal Sensorium / Orientation: awake and alert Motor Exam: strength 5/5 throughout Psych thought process normal Mood & Affect: anxious and tearful Skin no rashes or lesions noted and no wounds MDM MDM MDM Narrative Medical decision making narrative: Work-up shows possibility of urine infection, possibly passed stone from the right ureter, and significant fecal retention which the patient is very symptomatic from. We did soapsuds enema 3 times eventually very productive and a very large amount of hard stool she felt much better after passing this, and was given appropriate discharge instructions as well as antibiotics to cover her against the possibility of pyelonephritis since we do not see a stone and she is having right flank pain. Lab Data Attestation: I reviewed the patient's lab results. Labs: Laboratory Results - last 24 hr 12/06/21 12/06/21 12/06/21 23:05 23:05 23:16 WBC 11.4 H RBC 4.28 Hgb 13.4 Hct 38.6 MCV 90.2 MCH 31.3 MCHC 34.7 RDW Std Deviation 43.8 RDW Coeff of [place] 13.4 Plt Count 206 MPV 12.6 H Immature Gran % (Auto) 0.400 Neut % (Auto) 67.8 Lymph % (Auto) 26.0 [place] % (Auto) 4.7 Eos % (Auto) 0.7 Baso % (Auto) 0.4 Absolute Neuts (auto) 7.7 Absolute Lymphs (auto) 2.96 Nucleated RBC % 0 Sodium 141 Potassium 4.0 Chloride 109 H Carbon Dioxide 26.0 Anion Gap 6 BUN 11 Creatinine 0.92 Estim Creat Clear Calc 61.31 Est GFR (MDRD) Af Amer 89 Est GFR (MDRD) Non-Af 74 BUN/Creatinine Ratio 12.0 Glucose 142 H Calcium 9.3 Urine Color Yellow Urine Clarity Cloudy Urine pH 7.0 Ur Specific [place] 1.010 Urine Protein 15 H Urine Glucose (UA) Normal Urine Ketones Negative Urine Occult Blood 25 H Urine Nitrite Negative Urine Bilirubin Negative Urine Urobilinogen Normal Ur Leukocyte Esterase 100 H Urine RBC 0-5 SEEN Urine WBC 25-50 SEEN Ur Squamous Epith Cells 0 SEEN Urine Bacteria 4+ Urine Mucus 0 SEEN Radiography Diagnostic Testing: Clinical Impression(s) from Imaging Studies Abdomen/Pelvis CT 12/06/21 23:11 IMPRESSION: Mild right hydronephrosis. No definite obstructing ureteral calculus identified. This may be secondary to a nonopaque or nonvisualized ureteral calculus, recently passed calculus, or other process. Stool distended rectum. Mild rectal wall thickening may be due to proctitis or fecal impaction. Electronically Signed: Carin Banks MD at 0:22 EDT , Discharge Plan Triage Chief Complaint: Flank Pain Other Complaint: GI Bleed Complaint Vag Bleeding ED Provider: Redd Bustamante Dx/Rx/DC Orders Clinical Impression: Fecal impaction in rectum, Encopresis, UTI (urinary tract infection) Instructions: Kidney Infec Dc, ED Fecal Impaction, Treated Prescriptions: New sulfamethoxazole-trimethoprim [sulfamethoxazole-trimethoprim] 800-160 mg tablet 1 tab PO BID Qty: 20 0RF No Action alprazolam [Xanax] 1 MG tablet 0.5 - 1 mg PO BID PRN PRN (Reason: Anxiety) atorvastatin 40 mg tablet 40 mg PO QHS albuterol sulfate [Ventolin HFA] 90 mcg/actuation HFA aerosol inhaler 1 - 2 puff inhalation Q4H PRN PRN (Reason: Wheezing) Qty: 1 0RF insulin aspart U-100 [Novolog Flexpen U-100 Insulin] 100 unit/mL (3 mL) insulin pen 45 unit subcut TIDCM Qty: 45 0RF Rx Instructions: 15 pens hydrochlorothiazide 25 mg tablet 25 mg PO BID Label Comments: TAKE 1 TABLET BY MOUTH EVERY DAY dextroamphetamine-amphetamine 5 mg tablet 10 mg PO DAILY Label Comments: take 2 tablets by mouth every morning and 1 tablet every AFTERNOON dextroamphetamine-amphetamine 5 mg tablet 5 mg PO QHS Label Comments: take 2 tablets by mouth every morning and 1 tablet every AFTERNOON Lantus Solostar U-100 Insulin 100 unit/mL (3 mL) insulin pen 36 units subcut QHS acetaminophen 325 mg Tablet 650 mg PO Q4H PRN (Reason: Pain) valacyclovir [Valtrex] 1 gram Tablet 1,000 mg PO DAILY diphenoxylate-atropine 2.5-0.025 mg Tablet 1 tab PO 4X/DAY PRN PRN (Reason: Diarrhea) potassium chloride [K-Tab] 10 mEq Tablet Extended Release 20 meq PO BID triamcinolone acetonide 0.1 % Cream 1 applic TOPICAL TID PRN (Reason: RASH/ITCHING) Rx Instructions: APPLE 1 APPLICATION TO AFFECTED AREA THREE TIMES DAILY NEEDED. APPLY SPARINGLY TO AREA FOR RASH/ITCHING FOR SHINGLES AND CONTACT DERMATITIS. amitriptyline 25 mg Tablet 50 - 75 mg PO QHS promethazine 25 mg Tablet 25 mg PO Q6H PRN (Reason: NAUSEA/VOMITING) furosemide 20 mg Tablet 20 - 40 mg PO DAILY PRN (Reason: BREAKTHROUGH SWELLING DESPITE HCTZ) oxycodone [Roxicodone] 5 mg Tablet 5 mg PO Q6H PRN (Reason: Pain) bifidobacteri bifid.and longum 460 mg (9-1 bill.cell) Capsule 1 cap PO DAILY rimegepant 75 mg Tablet,Disintegrating 75 mg PO DAILY PRN PRN (Reason: Headache) Rx Instructions: TAKE ONE ON ONSET OF HEADACHE, NO MORE THAN 1 TABLET IN 24 HRS fluconazole 150 mg Tablet 150 mg PO DAILY PRN (Reason: yeast infection) Qty: 0 0RF Rx Instructions: TAKE ONE PILL REPEAT IN 3 TO 5 DAYS IF NEEDED. phenazopyridine [Pyridium] 100 mg tablet 100 mg PO TID PRN (Reason: pain) Qty: 6 0RF Primary Care Provider: Gwen Verdin Referrals: Gwen Verdin MD [Primary Care Provider] - 3-5 Days if not improving Activity Restrictions/Additional Instructions: MiraLAX 1 capful dissolved once daily, may double this as a laxative if needed. Disposition Disposition: Home, Self Care
--- NOTE | 2021-12-06 23:11 | CT_ITS ---
STUDY: CT ABDOMEN AND PELVIS WITHOUT CONTRAST REASON FOR EXAM: Female, 36 years old. right flank pain RADIATION DOSAGE (If Supplied By Facility): CTDIvol = ( 16.05 ) mGy, DLP = ( 777.88 ) mGycm TECHNIQUE: Transaxial images were obtained from the dome of the diaphragm to the symphysis pubis without oral contrast, and without intravenous contrast. Sagittal and coronal images were reconstructed. Individualized dose optimization techniques were used for this CT. COMPARISON: CT abdomen pelvis 10/07/2021. FINDINGS: LOWER CHEST: Included lung bases are clear. LIVER: Enlarged. Fatty infiltration. GALLBLADDER AND BILIARY TREE: Gallbladder surgically absent. PANCREAS: Grossly unremarkable. SPLEEN: Grossly unremarkable. ADRENAL GLANDS: Grossly unremarkable. KIDNEYS AND URETERS: No calculi demonstrated. Mild hydronephrosis on the right. The right ureter is not dilated. Normal No definite calculi identified in the ureters. PERITONEUM: No free air. No free fluid. BOWEL: Large amount stool distending the rectum. Slight rectal wall thickening and perirectal stranding. Moderate stool throughout the remainder of the colon. No bowel obstruction. APPENDIX: Visualized and unremarkable. No evidence of acute appendicitis. VESSELS: Abdominal aorta is normal caliber. REPRODUCTIVE ORGANS: Grossly unremarkable URINARY BLADDER: Uterus not identified. ABDOMINAL WALL: Unremarkable. BONES: No acute abnormalities. CT/Abdomen/Pelvis without Cont IMPRESSION: Mild right hydronephrosis. No definite obstructing ureteral calculus identified. This may be secondary to a nonopaque or nonvisualized ureteral calculus, recently passed calculus, or other process. Stool distended rectum. Mild rectal wall thickening may be due to proctitis or fecal impaction. Electronically Signed: Carin Banks MD at 0:22 EDT ,
[2021-12-06] MEDS: Ketorolac 15 MG/ML Vial IV (23:23)
[2021-12-06] MEDS: Ondansetron 4 MG/2 ML Vial IV (23:23)
[2021-12-06] MEDS: Morphine 4 MG/ML Syringe IV (23:23)
[2021-12-06 23:33] LABS: Color, Urine Yellow (Yellow); Glucose, Dipstick Normal (Normal); Ketone-Dipstick Negative (Negative); Leukocyte Esterase-Dipstick 100 /ul (Negative); Mucous, Urine 0 SEEN /hpf (<or=2+); Nitrite-Dipstick Negative (Negative); Occult Blood-Urine 25 /ul (Negative); Protein-Dipstick 15 mg/dl (Negative); Squamous Epithelial Cells - UA 0 SEEN /hpf (5-10); Urine Bilirubin Dipstick Negative (Negative); Urine Clarity Cloudy (Clear); Urine Urobilinogen Normal (Normal)
[2021-12-06 23:45] LABS: Absolute Lymphocyte Count 2.96 X10^3/uL (0.83-4.51); Absolute Neutrophil Count 7.7 X10^3/uL (2.0-7.7); Basophil# 0.05 X10^3/uL; Basophil% 0.4 % (0-1); Eosinophil# 0.08 X10^3/uL; Eosinophils% 0.7 % (0-5); Hematocrit 38.6 % (37-47); Hemoglobin 13.4 g/dL (12.0-15.0); Lymphocyte # 2.96 X10^3/ul (0.83-4.51); Mean Corp Hgb Conc 34.7 g/dL (32-36); Mean Corpuscular Hgb 31.3 pg (27.0-32.0); Mean Corpuscular Volume 90.2 fL (81-99); Mean Platelet Vol. 12.6 fl (6.2-12.0); Monocyte# 0.53 X10^3/uL; Monocyte% 4.7 % (0-10); NRBC Flagged by Analyzer 0 % (0-5); Neutrophil # 7.73 X10^3/uL (2.7-7.7); Neutrophil % 67.8 % (47-70); Platelet Count 206 K/mm3 (150-450); RBC Distribution Width CV 13.4 % (11.6-14.6); RBC Distribution Width SD 43.8 fl (35.1-43.9); Red Blood Count 4.28 M/mm3 (4.2-5.4); White Blood Count 11.4 K/mm3 (4.4-11.0)
[2021-12-06 23:53] LABS: Anion Gap 6 (5-15); BUN 11 mg/dL (7-18); Calcium,Total 9.3 mg/dL (8.5-10.1); Chloride 109 mmol/L (98-107); Creatinine, Serum 0.92 mg/dL (0.55-1.02); EST Glomerular Filtration Rate 74 mL/min (>60); Est Glom Filt Rate - Afr Amer 89 mL/min (>60); Estimated Creatinine Clearance 61.31 ml/min; Glucose 142 mg/dL (74-106); Sodium Level 141 mmol/L (136-145)
[2021-12-06 23:54] LABS: Bacteria 4+ /hpf (None Seen); Red Blood Cells-Urine 0-5 SEEN /hpf (0-5); White Blood Cells 25-50 SEEN /hpf (0-5)
[2021-12-07 01:00] VITALS: RESP 18
--- NOTE | 2021-12-07 01:20 | ED.RN ---
Pt had a huge firm brown stool
[2021-12-07 01:40] VITALS: BP 130/65; PULSE 105; RESP 18; O2SAT 97
[2021-12-07] MEDS: Smz/Tmp Ds Tablet 1 TABLET PO (01:40)
== END 2021-12-07 01:45 | disposition home or self-care (01) ==
PROVIDERS: Emergency Provider Emergency Medicine; PCP Internal Medicine; Visit Provider Emergency Medicine
DX: K56.41 Fecal impaction (principal); E11.9 Type 2 diabetes mellitus without complications; Z79.4 Long term (current) use of insulin; N39.0 Urinary tract infection, site not specified; I10 Essential (primary) hypertension; E78.00 Pure hypercholesterolemia, unspecified; F32.A Depression, unspecified; F41.9 Anxiety disorder, unspecified; E66.9 Obesity, unspecified; Z68.35 Body mass index [BMI] 35.0-35.9, adult; Z90.710 Acquired absence of both cervix and uterus; Z90.49 Acquired absence of other specified parts of digestive tract; Z79.899 Other long term (current) drug therapy; Z87.442 Personal history of urinary calculi
CPT/HCPCS: 74176; 80048; 81001; 85025; 87077; 87086; 87088; 87186; 96374; 96375; 99284; A4216; J2405

== ENCOUNTER → 2022-05-13 | Outpatient (CLI) | payer SELFPAY ==
[2022-05-13 12:42] LABS: Amphetamine Urine VISTA POSITIVE (<1000 ng/mL); Barbiturate Urine VISTA NEGATIVE (< 200 ng/mL); Benzodiazepine Urine VISTA POSITIVE (< 200 ng/mL); Cocaine Urine VISTA NEGATIVE (< 300 ng/mL); Ecstacy Urine VISTA NEGATIVE (< 500 ng/mL); Methadone Urine VISTA NEGATIVE (< 300 ng/mL); PCP Urine VISTA NEGATIVE (< 25 ng/mL); THC Urine VISTA NEGATIVE (< 50 ng/mL); Vista UDS pH Range 6
== END | disposition home or self-care (01) ==
LOC: LABSPEC 10:50
PROVIDERS: PCP Internal Medicine; Visit Provider Family Medicine
DX: Z02.89 Encounter for other administrative examinations (principal); Z79.899 Other long term (current) drug therapy
CPT/HCPCS: 80307

== ENCOUNTER → 2022-10-17 | Outpatient (CLI) | payer MEDICAID, SELFPAY ==
[2022-10-17 12:01] LABS: Absolute Lymphocyte Count 2.97 X10^3/uL (0.83-4.51); Absolute Neutrophil Count 3.2 X10^3/uL (2.0-7.7); Basophil# 0.05 X10^3/uL; Basophil% 0.7 % (0-1); Eosinophil# 0.16 X10^3/uL; Eosinophils% 2.4 % (0-5); Hemoglobin 13.5 g/dL (12.0-15.0); Lymphocyte # 2.97 X10^3/ul (0.83-4.51); Lymphocyte % 43.7 % (19-41); Mean Corp Hgb Conc 32.9 g/dL (32-36); Mean Corpuscular Hgb 30.9 pg (27.0-32.0); Mean Corpuscular Volume 93.8 fL (81-99); Mean Platelet Vol. 11.4 fl (6.2-12.0); Monocyte# 0.43 X10^3/uL; Monocyte% 6.3 % (0-10); NRBC Flagged by Analyzer 0 % (0-5); Neutrophil # 3.16 X10^3/uL (2.7-7.7); Neutrophil % 46.6 % (47-70); Platelet Count 233 K/mm3 (150-450); RBC Distribution Width CV 12.5 % (11.6-14.6); Red Blood Count 4.37 M/mm3 (4.2-5.4); White Blood Count 6.8 K/mm3 (4.4-11.0)
[2022-10-17 12:28] LABS: Hemoglobin A1c 6.8 % (3.8-5.6)
[2022-10-17 12:34] LABS: ALB/GLOB Ratio 0.9 RATIO (0.9-2.4); AST(SGOT) 19 U/L (15-37); Alanine Aminotransfer ALT/SGPT 36 U/L (13-56); Albumin, Serum 3.5 g/dL (3.2-5.0); Alkaline Phosphatase 95 U/L (45-117); Anion Gap 3 (5-15); BUN 10 mg/dL (7-18); BUN/Creat Ratio 11.8 RATIO (10-20); Calcium,Total 9.3 mg/dL (8.5-10.1); Chloride 104 mmol/L (98-107); Cholesterol 218 mg/dL (200); Creatinine, Serum 0.85 mg/dL (0.55-1.02); EST Glomerular Filtration Rate 80 mL/min (>60); Est Glom Filt Rate - Afr Amer 97 mL/min (>60); Free T3 2.7 pg/mL (2.18-3.98); Globulin 3.9 g/dL (2.2-4.2); Glucose 200 mg/dL (74-106); High Density Lipoprotein 50 mg/dL; Magnesium 1.8 mg/dL (1.6-2.6); Potassium 3.5 mmol/L (3.5-5.1); Protein, Total 7.4 g/dL (6.4-8.2); Sodium Level 137 mmol/L (136-145); T4 Free Direct 0.83 ng/dL (0.76-1.46); Thyroid Stim Hormone (TSH) 3.95 uIU/mL (0.358-3.74); Triglycerides 156 mg/dL; Very Low Density Lipoprotein 31 mg/dL (5-40)
[2022-10-17 16:01] LABS: Microalbumin,Random Urine < 5.0 mg/L (NO RANGE EST.)
== END | disposition home or self-care (01) ==
PROVIDERS: PCP Internal Medicine; Referring Provider Internal Medicine; Visit Provider Internal Medicine
DX: R39.9 Unspecified symptoms and signs involving the genitourinary system (principal); E11.65 Type 2 diabetes mellitus with hyperglycemia; R10.9 Unspecified abdominal pain; E78.5 Hyperlipidemia, unspecified; R63.5 Abnormal weight gain; E83.42 Hypomagnesemia
CPT/HCPCS: 36415; 80053; 80061; 82043; 82570; 83036; 83735; 84439; 84443; 84481; 85025; 87086; 87088

== ENCOUNTER 2023-01-23 06:26 | Emergency (ER) | payer MEDICAID, SELFPAY ==
[2023-01-23 06:27] VITALS: BP 129/101; PULSE 100; RESP 18; TEMP 36.6; O2SAT 99; BMI 38.0
--- NOTE | 2023-01-23 06:37 | EX.ED.UPPERE ---
HPI History of Present Illness Chief Complaint: Upper Extremity Injury Informant: patient Narrative Narrative: [id number] female presents left wrist injury prior to arrival. Coming down the steps when she tripped falling down 3 steps on outstretched left arm. No head injuries. Pain with left wrist movement. Denies history of fractures. No anticoagulation med since. Patient is a diabetic. Does not follow an orthopedist. Prior similar symptoms: No PFSH PFSH Medical History Anxiety Asthma Chest pain Current use of insulin Depression Diabetes Diabetes mellitus DVT (deep venous thrombosis) GI bleed High cholesterol Hyperglycemia due to diabetes mellitus Hypertension Kidney stones Knee arthropathy Migraines Ureteral stone Home Medications alprazolam 1 mg tablet (Xanax) 0.5 - 1 mg PO BID PRN PRN Anxiety 11/24/17 [History Last Taken 11/23/20] atorvastatin 40 mg tablet 40 mg PO QHS Check with primary doctor 12/26/20 [History Last Taken Unknown] albuterol sulfate 90 mcg/actuation aerosol inhaler (Ventolin HFA) 1 - 2 puff inhalation Q4H PRN PRN Wheezing #1 device 07/07/21 [Rx Last Taken Unknown] insulin aspart U-100 100 unit/mL (3 mL) subcutaneous pen (Novolog FlexPen U-100 Insulin aspart) 45 unit (0.45 mL) subcut TIDCM #45 mL 08/09/21 [Rx Last Taken Unknown] acetaminophen 325 mg tablet 650 mg PO Q4H PRN Pain 10/08/21 [History Last Taken Unknown] amitriptyline 25 mg tablet 50 - 75 mg PO QHS 10/08/21 [History Last Taken Unknown] bifidobacterium bifidum and longum 460 mg (9-1 billion cell) capsule 1 cap PO DAILY 10/08/21 [History Last Taken Unknown] dextroamphetamine-amphetamine 5 mg tablet 5 mg PO QHS 10/08/21 [History Last Taken Unknown] dextroamphetamine-amphetamine 5 mg tablet 10 mg PO DAILY 10/08/21 [History Last Taken Unknown] diphenoxylate-atropine 2.5 mg-0.025 mg tablet 1 tab PO 4X/DAY PRN PRN Diarrhea 10/08/21 [History Last Taken Unknown] furosemide 20 mg tablet 20 - 40 mg PO DAILY PRN BREAKTHROUGH SWELLING DESPITE HCTZ 10/08/21 [History Last Taken Unknown] hydrochlorothiazide 25 mg tablet 25 mg PO BID 10/08/21 [History Last Taken Unknown] insulin glargine 100 unit/mL (3 mL) subcutaneous pen (Lantus Solostar U-100 Insulin) 36 units subcut QHS 10/08/21 [History Last Taken Unknown] oxycodone 5 mg tablet (Roxicodone) 5 mg PO Q6H PRN Pain 10/08/21 [History Last Taken Unknown] potassium chloride 10 mEq tablet,extended release (K-Tab) 20 meq PO BID 10/08/21 [History Last Taken Unknown] promethazine 25 mg tablet 25 mg PO Q6H PRN NAUSEA/VOMITING 10/08/21 [History Last Taken Unknown] rimegepant 75 mg disintegrating tablet 75 mg PO DAILY PRN PRN Headache 10/08/21 [History Last Taken Unknown] triamcinolone acetonide 0.1 % topical cream 1 applic topical TID PRN RASH/ITCHING 10/08/21 [History Last Taken Unknown] valacyclovir 1 gram tablet (Valtrex) 1,000 mg PO DAILY 10/08/21 [History Last Taken Unknown] fluconazole 150 mg tablet 150 mg PO DAILY PRN yeast infection #0 tabs 10/09/21 [Rx Last Taken Unknown] phenazopyridine 100 mg tablet (Pyridium) 100 mg PO TID PRN pain 6 doses #6 tabs 10/09/21 [Rx Last Taken Unknown] sulfamethoxazole 800 mg-trimethoprim 160 mg tablet 1 tab PO BID #20 TABLETS 12/07/21 [Rx Last Taken Unknown] oxycodone-acetaminophen 5 mg-325 mg tablet (Percocet) 1 tab PO Q6H pain 3 days #12 tabs 01/23/23 [Rx Last Taken Unknown] Allergy/AdvReac Type Severity Reaction Status Date / Time Penicillins Allergy Hives Verified 12/06/21 22:02 azithromycin [From Zithromax] AdvReac Vomiting Verified 12/06/21 22:02 diphenhydramine AdvReac Vomiting Verified 12/06/21 22:02 [From Benadryl] doxycycline AdvReac Other Verified 12/06/21 22:02 latex AdvReac Rash Verified 12/06/21 22:02 minocycline [Minocycline] AdvReac Other Verified 12/06/21 22:02 NSAIDS (Non-Steroidal AdvReac Bleeding Verified 12/06/21 22:02 Anti-Inflamma tramadol AdvReac Shortness Verified 12/06/21 22:02 of breath Family History Mother Diabetes Surgical History H/O: hysterectomy History of cholecystectomy Hx of hernia repair Social History Smoking Status: Never smoker ROS ROS ED Constitutional Constitutional ED: Denies chills, fever(s) or sweats Eyes Eyes: Denies change in vision ENT ENT ED: Denies dysphagia or sore throat Cardiovascular Cardiovascular: Denies chest pain, leg edema, palpitations or racing heartbeat Respiratory/Chest Respiratory/Chest: Denies cough, dyspnea or dyspnea on exertion Gastrointestinal Gastrointestinal: Denies abdominal pain, diarrhea, nausea or vomiting Genitourinary Genitourinary ED: Denies dysuria, hematuria or urinary frequency Musculoskeletal Musculoskeletal: Reports extremity pain; Denies back pain or neck pain Integumentary Denies rash or wounds Neurologic Neurologic: Denies headache(s), paresthesias or weakness EXAM Physical Exam Const Vital Signs: 01/23/23 06:27 Temperature 97.8 F Temperature Source Temporal Pulse Rate 100 Respiratory Rate 18 Blood Pressure 129/101 H Blood Pressure Mean 110 Pulse Ox 99 Oxygen Delivery Method Room Air Positive well nourished and well developed Constitutional Narrative: Nontoxic uncomfortable. GCS 15. General Appearance ED: well developed HEENT Reports moist mucous membranes normocephalic and atraumatic Eyes PERRL, EOMs intact bilaterally and conjunctivae normal General Eye ED: Yes normal appearance of both eyes Neck no lymphadenopathy and supple General: Negative for tenderness Chest Wall Chest: Negative for tenderness Resp normal respiratory effort and normal air movement Effort and Inspection: symmetric chest movement; Negative for respiratory distress Cardio regular rate, regular rhythm and no murmurs Peripheral Pulses: pulses 2+ throughout GI normal to inspection, nondistended, normoactive bowel sounds and non-tender Palpation: Negative for guarding or rebound tenderness present Back/Spine no CVA tenderness and no thoracic nor lumbar tenderness Extremity Extremity Narrative: Right upper extremity: Full range of motion without tenderness. Left upper extremity: No shoulder or elbow or proximal forearm tenderness. Soft compartments. The wrist was status flex position of comfort she has tenderness in the dorsal aspect distal radius and ulna. She had significant snuffbox tenderness. No hand tenderness. Skin intact. Neuro vas intact distally. Lower extremities: Negative logroll bilaterally. General Extremety ED: Negative for edema or tenderness General Extremity: Negative for edema Neuro oriented x3 and no sensory deficits noted Sensorium / Orientation: awake and alert Skin no rashes or lesions noted and no wounds MDM MDM MDM Narrative Medical decision making narrative: Interventions / MDM: Differential diagnosis: Wrist fracture, wrist sprain Diagnosis considered but do not suspect: N/A My EKG interpretation: N/A Imaging independently reviewed and interpreted by myself: Three-view left wrist: No clear fractures noted radius or ulna. No scaphoid bone fracture visualized. No dislocations. External documents reviewed: N/A Test considered but not ordered:N/A ED course: Patient uncomfortable exam oxycodone ordered for pain control. X-rays read by myself no definitive fractures noted however clinical scaphoid fracture with exam. She is placed in a plaster thumb spica. Prescription for pain medicines with orthopedic follow-up. All questions were answered. Splinting: Nylon sleeve was placed left upper extremity around the thumb, Kerlix dressing with padding. 5 inch plaster used for the thumb spica with wrist placed in a neutral position. Garry wrap dressing. Neuro vas intact with cap refill intact post splinting. Patient tolerated procedure well. Re-evaluation: stable Disposition discussed with patient/family/significant other: Patient and significant other Case discussed with consulting clinician: N/A This note was generated with [employer] dictation software. It may contain incorrect words, spelling, and punctuation that were not noted in checking the note before signing. Discharge Plan Triage Chief Complaint: Upper Extremity Injury ED Provider: Aleks Tavarez Dx/Rx/DC Orders Clinical Impression: Scaphoid fracture, wrist, closed, Left wrist sprain Instructions: ED Possible Wrist Fracture, ED Wrist Sprain Prescriptions: New oxycodone-acetaminophen [Percocet] 5-325 mg tablet 1 tab PO Q6H 3 Days Qty: 12 0RF No Action alprazolam [Xanax] 1 MG tablet 0.5 - 1 mg PO BID PRN PRN (Reason: Anxiety) atorvastatin 40 mg tablet 40 mg PO QHS albuterol sulfate [Ventolin HFA] 90 mcg/actuation HFA aerosol inhaler 1 - 2 puff inhalation Q4H PRN PRN (Reason: Wheezing) Qty: 1 0RF insulin aspart U-100 [Novolog FlexPen U-100 Insulin] 100 unit/mL (3 mL) insulin pen 45 unit subcut TIDCM Qty: 45 0RF Rx Instructions: 15 pens hydrochlorothiazide 25 mg tablet 25 mg PO BID Patient Comments: TAKE 1 TABLET BY MOUTH EVERY DAY dextroamphetamine-amphetamine 5 mg tablet 10 mg PO DAILY Patient Comments: take 2 tablets by mouth every morning and 1 tablet every AFTERNOON dextroamphetamine-amphetamine 5 mg tablet 5 mg PO QHS Patient Comments: take 2 tablets by mouth every morning and 1 tablet every AFTERNOON Lantus Solostar U-100 Insulin 100 unit/mL (3 mL) insulin pen 36 units subcut QHS acetaminophen 325 mg Tablet 650 mg PO Q4H PRN (Reason: Pain) valacyclovir [Valtrex] 1 gram Tablet 1,000 mg PO DAILY diphenoxylate-atropine 2.5-0.025 mg Tablet 1 tab PO 4X/DAY PRN PRN (Reason: Diarrhea) potassium chloride [K-Tab] 10 mEq Tablet Extended Release 20 meq PO BID triamcinolone acetonide 0.1 % Cream 1 applic TOPICAL TID PRN (Reason: RASH/ITCHING) Rx Instructions: APPLE 1 APPLICATION TO AFFECTED AREA THREE TIMES DAILY NEEDED. APPLY SPARINGLY TO AREA FOR RASH/ITCHING FOR SHINGLES AND CONTACT DERMATITIS. amitriptyline 25 mg Tablet 50 - 75 mg PO QHS promethazine 25 mg Tablet 25 mg PO Q6H PRN (Reason: NAUSEA/VOMITING) furosemide 20 mg Tablet 20 - 40 mg PO DAILY PRN (Reason: BREAKTHROUGH SWELLING DESPITE HCTZ) oxycodone [Roxicodone] 5 mg Tablet 5 mg PO Q6H PRN (Reason: Pain) bifidobacteri bifid.and longum 460 mg (9-1 bill.cell) Capsule 1 cap PO DAILY rimegepant 75 mg Tablet,Disintegrating 75 mg PO DAILY PRN PRN (Reason: Headache) Rx Instructions: TAKE ONE ON ONSET OF HEADACHE, NO MORE THAN 1 TABLET IN 24 HRS fluconazole 150 mg Tablet 150 mg PO DAILY PRN (Reason: yeast infection) Qty: 0 0RF Rx Instructions: TAKE ONE PILL REPEAT IN 3 TO 5 DAYS IF NEEDED. phenazopyridine [Pyridium] 100 mg tablet 100 mg PO TID PRN (Reason: pain) Qty: 6 0RF sulfamethoxazole-trimethoprim [sulfamethoxazole-trimethoprim] 800-160 mg tablet 1 tab PO BID Qty: 20 0RF Stand Alone Forms: ED Work / School Excuse Primary Care Provider: Gwen Verdin Referrals: Gwen Verdin MD [Primary Care Provider] - Esvin Cui DO [Med Staff - Active Staff] - 3-5 Days Activity Restrictions/Additional Instructions: No definitive fracture seen on x-ray however clinical left scaphoid bone fracture. Maintain thumb spica. Take pain medicines as prescribed. Call for follow-up with orthopedics outpatient evaluation and further imagings as needed. Disposition Disposition: Home, Self Care
--- NOTE | 2023-01-23 06:40 | RAD_ITS ---
INDICATION: Fall down stairs, left wrist pain EXAMINATION/TECHNIQUE: X-RAY - LEFT XR Wrist Min 3 Views COMPARISON: None. FINDINGS: SOFT TISSUES: No significant soft tissue swelling. Wrist bracelet noted. BONES/JOINTS: No acute fracture or subluxation. Normal alignment. Preservation of the joint space(s). No suspicious osseous lesion observed. RAD/Wrist min 3 Views IMPRESSION: Negative left wrist Electronically Signed: Demetris Reza MD at 7:22 EDT ,
[2023-01-23] MEDS: oxyCODONE 5 MG Tablet PO (06:50)
== END 2023-01-23 07:40 | disposition home or self-care (01) ==
PROVIDERS: Emergency Provider Emergency Medicine; PCP Internal Medicine; Visit Provider Emergency Medicine
DX: S62.002A Unspecified fracture of navicular [scaphoid] bone of left wrist, initial encounter for closed fracture (principal); E11.9 Type 2 diabetes mellitus without complications; Z79.4 Long term (current) use of insulin; S63.92XA Sprain of unspecified part of left wrist and hand, initial encounter; E78.00 Pure hypercholesterolemia, unspecified; I10 Essential (primary) hypertension; F41.9 Anxiety disorder, unspecified; J45.909 Unspecified asthma, uncomplicated; Z79.899 Other long term (current) drug therapy; F32.A Depression, unspecified; G43.909 Migraine, unspecified, not intractable, without status migrainosus; Z90.710 Acquired absence of both cervix and uterus; Z90.49 Acquired absence of other specified parts of digestive tract; W10.9XXA Fall (on) (from) unspecified stairs and steps, initial encounter
CPT/HCPCS: 73110; 99283